=== PATIENT | male | born 1960 | race Caucasian/White ===

== ENCOUNTER → 2017-08-08 08:28 | Outpatient (CLI) | payer OTHER, SELFPAY ==
[2017-08-08 10:42] LABS: ALB/GLOB Ratio 1.1 RATIO (0.9-2.4); AST(SGOT) 18 U/L (15-37); Alanine Aminotransfer ALT/SGPT 32 U/L (16-61); Albumin, Serum 3.9 g/dL (3.2-5.0); Alkaline Phosphatase 104 U/L (45-117); Anion Gap 5 (5-15); BUN 10 mg/dL (7-18); BUN/Creat Ratio 9.9 RATIO (10-20); Calcium,Total 8.6 mg/dL (8.5-10.1); Chloride 105 mmol/L (98-107); Cholesterol 150 mg/dL (200); Creatinine, Serum 1.01 mg/dL (0.70-1.30); EST Glomerular Filtration Rate 81 mL/min (>60); Est Glom Filt Rate - Afr Amer 99 mL/min (>60); Free T3 3.1 pg/mL (2.18-3.98); Globulin 3.7 g/dL (2.2-4.2); Glucose 201 mg/dL (74-106); High Density Lipoprotein 42 mg/dL; Protein, Total 7.6 g/dL (6.4-8.2); Sodium Level 137 mmol/L (136-145); T4 Free Direct 1.17 ng/dL (0.76-1.46); Thyroid Stim Hormone (TSH) 1.24 uIU/mL (0.358-3.74); Triglycerides 128 mg/dL; Very Low Density Lipoprotein 26 mg/dL (5-40)
== END ==
PROVIDERS: Visit Provider Family Medicine
DX: E11.9 Type 2 diabetes mellitus without complications (principal); E04.1 Nontoxic single thyroid nodule
CPT/HCPCS: 36415; 80053; 80061; 84439; 84443; 84481

== ENCOUNTER → 2018-02-06 16:02 | Outpatient (CLI) | payer OTHER, SELFPAY ==
[2018-02-06 17:47] LABS: ALB/GLOB Ratio 1.1 RATIO (0.9-2.4); AST(SGOT) 17 U/L (15-37); Alanine Aminotransfer ALT/SGPT 32 U/L (16-61); Albumin, Serum 3.9 g/dL (3.2-5.0); Alkaline Phosphatase 86 U/L (45-117); Anion Gap 10 (5-15); BUN 13 mg/dL (7-18); BUN/Creat Ratio 14.2 RATIO (10-20); Calcium,Total 9.2 mg/dL (8.5-10.1); Chloride 101 mmol/L (98-107); Creatinine, Serum 0.92 mg/dL (0.70-1.30); EST Glomerular Filtration Rate 91 mL/min (>60); Est Glom Filt Rate - Afr Amer 110 mL/min (>60); Globulin 3.5 g/dL (2.2-4.2); Glucose 110 mg/dL (74-106); Potassium 3.4 mmol/L (3.5-5.1); Protein, Total 7.4 g/dL (6.4-8.2); Sodium Level 140 mmol/L (136-145)
== END ==
PROVIDERS: Family Provider Family Medicine; PCP Family Medicine; Visit Provider Family Medicine
DX: E11.9 Type 2 diabetes mellitus without complications (principal); I10 Essential (primary) hypertension
CPT/HCPCS: 36415; 80053

== ENCOUNTER → 2018-02-10 14:41 | Outpatient (CLI) | payer OTHER, SELFPAY ==
--- NOTE | 2018-02-10 14:45 | US_ITS ---
STUDY: THYROID ULTRASOUND REASON FOR EXAM: Male, 57 years old. Nodule TECHNIQUE: Ultrasound evaluation of the thyroid was performed with real-time and static reyez-scale imaging. COMPARISON: None. FINDINGS: RIGHT LOBE: The right lobe of the thyroid gland measures 4.4 x 2.0 x 1.5 cm. There is a homogeneous echotexture. There is an echogenic lower pole 10 x 9 x 8 mm nodule. LEFT LOBE: The left lobe of the thyroid gland measures 8.1 x 5.9 x 4.2 cm. There is a heterogeneous echotexture. There is a 5.6 x 4.4 x 4.0 cm heterogeneous mass with calcifications centrally and cystic components. ISTHMUS: The isthmus measures 6 mm . There is a right-sided 2.7 x 1.2 x 2.7 cm lymph node. US/Thyroid IMPRESSION: Right thyroid nodule. Left thyroid complex mass. Right-sided enlarged node. Electronically Signed: Sanjay Burgess DO at 23:04 EDT Tel [phone], Service support ,
== END ==
PROVIDERS: Family Provider Family Medicine; PCP Family Medicine; Referring Provider Family Medicine; Visit Provider Family Medicine
DX: E04.1 Nontoxic single thyroid nodule (principal)
CPT/HCPCS: 76536

== ENCOUNTER → 2018-03-04 13:10 | Outpatient (CLI) | payer OTHER, SELFPAY ==
--- NOTE | 2018-03-04 | ASPS_PTH ---
PATIENT: SERJIO RODRIGUEZ LOC: [facility] U#:[id number] AGE/SX: 64/M ROOM: RE03/04/[address]: Dr. Nii Vallecillo MD : 1960 BED: DIS: SPEC #: [id number] RECD: 03/04/18 12:36 STATUS: SOLIS REBowen #: [id number] DONALDO: 03/04/18 00:[address]: Nii Vallecillo DEPT: CYTOLOGY RECD BY: Kavon Schofield ENTERED: 03/06/18 13:28 SP TYPE: ASPIRATION OTHR DR: Dr. Deepak Bustos MD Tissues: Thyroid gland, NOS Procedures: Pap Stain (control) Special Stain Group II Cytology Other HEADER OPERATION: Fine needle aspiration of left thyroid PRE-OP DIAGNOSIS: Multinodular goiter (nontoxic) TISSUE SUBMITTED: Left thyroid 12 slides DIAGNOSIS CYTOLOGY Left thyroid nodule, FNA (smears): A few atypical follicular cells of undetermined significance noted. Adequate for evaluation. SJ:rg 03/07/18 COMMENT Correlation with clinical, radiologic findings and appropriate follow up are necessary. CYTOLOGY STUDY Slides are reviewed. CYTOLOGY GROSS Received are 12 smears labeled with the patient's name and designated per the requisition as left thyroid. Submitted for staining. / 03/06/18 TC:5 CPT: 98567 ADDENDUM ADDENDUM ADDENDUM ADDENDUM ADDENDUM ADDENDUM ADDENDUM ADDENDUM ADDENDUM ADDENDUM 05/31/2018 10:40 ADDENDUM 05/31/2018 10:40 ADDENDUM 05/31/2018 10:40 ADDENDUM 05/31/2018 10:40 ADDENDUM 05/31/2018 10:40 This addendum is added to incorporate an outside pathology consultation report. The case was examined at [facility] (#[id number]) and the following diagnosis was rendered. Left thyroid nodule fine needle aspiration: Atypia of undetermined significance. Please see complete above mentioned consultation report in EMR
== END ==
PROVIDERS: Family Provider Family Medicine; PCP Family Medicine; Visit Provider Surgery
DX: E04.2 Nontoxic multinodular goiter (principal)
CPT/HCPCS: 88161; 88313

== ENCOUNTER → 2018-09-11 09:57 | Outpatient (CLI) | payer OTHER, SELFPAY ==
[2018-04-17 09:32] VITALS: BMI 32.6
[2018-09-11 13:04] LABS: AST(SGOT) 16 U/L (15-37); Alanine Aminotransfer ALT/SGPT 22 U/L (16-61); Albumin, Serum 3.9 g/dL (3.2-5.0); Alkaline Phosphatase 107 U/L (45-117); Anion Gap 7 (5-15); BUN 24 mg/dL (7-18); BUN/Creat Ratio 18.6 RATIO (10-20); Calcium,Total 8.9 mg/dL (8.5-10.1); Chloride 108 mmol/L (98-107); Cholesterol 165 mg/dL (200); Creatinine, Serum 1.29 mg/dL (0.70-1.30); EST Glomerular Filtration Rate 61 mL/min (>60); Est Glom Filt Rate - Afr Amer 74 mL/min (>60); Free T3 1.6 pg/mL (2.18-3.98); Globulin 3.8 g/dL (2.2-4.2); Glucose 160 mg/dL (74-106); High Density Lipoprotein 46 mg/dL; Protein, Total 7.7 g/dL (6.4-8.2); Sodium Level 141 mmol/L (136-145); T4 Free Direct 0.95 ng/dL (0.76-1.46); Thyroid Stim Hormone (TSH) 9.96 uIU/mL (0.358-3.74); Triglycerides 114 mg/dL; Very Low Density Lipoprotein 23 mg/dL (5-40)
== END ==
PROVIDERS: PCP Family Medicine; Visit Provider Family Medicine
DX: E11.9 Type 2 diabetes mellitus without complications (principal); E04.1 Nontoxic single thyroid nodule; E03.9 Hypothyroidism, unspecified
CPT/HCPCS: 36415; 80053; 80061; 84439; 84443; 84481

== ENCOUNTER → 2019-03-15 08:59 | Outpatient (CLI) | payer OTHER, SELFPAY ==
[2018-04-17 09:32] VITALS: BMI 32.6
[2019-03-15 10:23] LABS: ALB/GLOB Ratio 0.9 RATIO (0.9-2.4); AST(SGOT) 19 U/L (15-37); Alanine Aminotransfer ALT/SGPT 32 U/L (16-61); Albumin, Serum 3.8 g/dL (3.2-5.0); Alkaline Phosphatase 103 U/L (45-117); Anion Gap 11 (5-15); BUN 18 mg/dL (7-18); BUN/Creat Ratio 14.5 RATIO (10-20); CRP, High Sensitivity Cardiac 5.42 mg/L; Calcium,Total 9.1 mg/dL (8.5-10.1); Chloride 102 mmol/L (98-107); Creatinine, Serum 1.24 mg/dL (0.70-1.30); EST Glomerular Filtration Rate 64 mL/min (>60); Est Glom Filt Rate - Afr Amer 77 mL/min (>60); Globulin 4.1 g/dL (2.2-4.2); Glucose 232 mg/dL (74-106); Protein, Total 7.9 g/dL (6.4-8.2); Sodium Level 139 mmol/L (136-145); Thyroid Stim Hormone (TSH) 1.53 uIU/mL (0.358-3.74)
== END ==
PROVIDERS: PCP Family Medicine; Visit Provider Family Medicine
DX: E11.9 Type 2 diabetes mellitus without complications (principal); E78.2 Mixed hyperlipidemia
CPT/HCPCS: 36415; 80053; 84403; 84443; 86141

== ENCOUNTER → 2020-01-07 14:50 | Outpatient (CLI) | payer OTHER, SELFPAY ==
[2018-04-17 09:32] VITALS: BMI 32.6
[2020-01-07 18:39] LABS: ALB/GLOB Ratio 1.1 RATIO (0.9-2.4); AST(SGOT) 20 U/L (15-37); Alanine Aminotransfer ALT/SGPT 27 U/L (16-61); Albumin, Serum 4.3 g/dL (3.2-5.0); Alkaline Phosphatase 107 U/L (45-117); Anion Gap 6 (5-15); BUN 16 mg/dL (7-18); BUN/Creat Ratio 13.1 RATIO (10-20); Calcium,Total 9.3 mg/dL (8.5-10.1); Chloride 104 mmol/L (98-107); Creatinine, Serum 1.22 mg/dL (0.70-1.30); EST Glomerular Filtration Rate 65 mL/min (>60); Est Glom Filt Rate - Afr Amer 79 mL/min (>60); Globulin 3.9 g/dL (2.2-4.2); Glucose 105 mg/dL (74-106); PSA,Total - Annual Screen 1.14 ng/mL (0.00-4.00); Potassium 3.5 mmol/L (3.5-5.1); Protein, Total 8.2 g/dL (6.4-8.2); Sodium Level 139 mmol/L (136-145); Thyroid Stim Hormone (TSH) 3.15 uIU/mL (0.358-3.74)
== END ==
PROVIDERS: PCP Family Medicine; Referring Provider Family Medicine; Visit Provider Family Medicine
DX: E11.9 Type 2 diabetes mellitus without complications (principal); Z12.5 Encounter for screening for malignant neoplasm of prostate
CPT/HCPCS: 36415; 80053; 84153; 84443; G0103

== ENCOUNTER → 2020-06-18 12:04 | Outpatient (CLI) | payer OTHER, SELFPAY ==
[2018-04-17 09:32] VITALS: BMI 32.6
[2020-06-18 16:01] LABS: ALB/GLOB Ratio 1.1 RATIO (0.9-2.4); AST(SGOT) 24 U/L (15-37); Alanine Aminotransfer ALT/SGPT 28 U/L (16-61); Albumin, Serum 4.3 g/dL (3.2-5.0); Alkaline Phosphatase 99 U/L (45-117); Anion Gap 7 (5-15); BUN 17 mg/dL (7-18); BUN/Creat Ratio 13.9 RATIO (10-20); Calcium,Total 9.7 mg/dL (8.5-10.1); Chloride 105 mmol/L (98-107); Cholesterol 131 mg/dL (200); Creatinine, Serum 1.22 mg/dL (0.70-1.30); EST Glomerular Filtration Rate 65 mL/min (>60); Est Glom Filt Rate - Afr Amer 78 mL/min (>60); Globulin 3.9 g/dL (2.2-4.2); Glucose 147 mg/dL (74-106); High Density Lipoprotein 51 mg/dL; Potassium 3.7 mmol/L (3.5-5.1); Protein, Total 8.2 g/dL (6.4-8.2); Sodium Level 139 mmol/L (136-145); Thyroid Stim Hormone (TSH) 2.86 uIU/mL (0.358-3.74); Triglycerides 109 mg/dL; Very Low Density Lipoprotein 22 mg/dL (5-40)
== END ==
PROVIDERS: PCP Family Medicine; Referring Provider Family Medicine; Visit Provider Family Medicine
DX: E03.9 Hypothyroidism, unspecified (principal); E11.9 Type 2 diabetes mellitus without complications
CPT/HCPCS: 36415; 80053; 80061; 84443

== ENCOUNTER → 2020-12-15 16:05 | Outpatient (CLI) | payer OTHER, SELFPAY ==
[2018-04-17 09:32] VITALS: BMI 32.6
[2020-12-15 18:14] LABS: ALB/GLOB Ratio 1.1 RATIO (0.9-2.4); AST(SGOT) 14 U/L (15-37); Alanine Aminotransfer ALT/SGPT 24 U/L (16-61); Alkaline Phosphatase 99 U/L (45-117); Anion Gap 7 (5-15); BUN 22 mg/dL (7-18); BUN/Creat Ratio 18.8 RATIO (10-20); Chloride 104 mmol/L (98-107); Creatinine, Serum 1.17 mg/dL (0.70-1.30); EST Glomerular Filtration Rate 68 mL/min (>60); Est Glom Filt Rate - Afr Amer 82 mL/min (>60); Globulin 3.8 g/dL (2.2-4.2); Glucose 76 mg/dL (74-106); Potassium 3.7 mmol/L (3.5-5.1); Protein, Total 7.8 g/dL (6.4-8.2); Sodium Level 138 mmol/L (136-145); Thyroid Stim Hormone (TSH) 0.13 uIU/mL (0.358-3.74)
== END ==
PROVIDERS: PCP Family Medicine; Referring Provider Family Medicine; Visit Provider Family Medicine
DX: E11.65 Type 2 diabetes mellitus with hyperglycemia (principal); E03.9 Hypothyroidism, unspecified; Z12.5 Encounter for screening for malignant neoplasm of prostate
CPT/HCPCS: 36415; 80053; 84439; 84443

== ENCOUNTER 2021-05-28 14:00 | Outpatient (CLI) | payer OTHER, SELFPAY ==
[2021-05-28 15:43] LABS: Hemoglobin A1c 9.2 % (3.8-5.6)
[2021-05-28 16:04] LABS: Anion Gap 8 (5-15); BUN 17 mg/dL (7-18); BUN/Creat Ratio 14.7 RATIO (10-20); Calcium,Total 9.9 mg/dL (8.5-10.1); Chloride 100 mmol/L (98-107); Cholesterol 117 mg/dL (200); Creatinine, Serum 1.16 mg/dL (0.70-1.30); EST Glomerular Filtration Rate 69 mL/min (>60); Est Glom Filt Rate - Afr Amer 83 mL/min (>60); Glucose 186 mg/dL (74-106); High Density Lipoprotein 36 mg/dL; Potassium 3.6 mmol/L (3.5-5.1); Sodium Level 138 mmol/L (136-145); Thyroid Stim Hormone (TSH) 1.05 uIU/mL (0.358-3.74); Triglycerides 216 mg/dL; Very Low Density Lipoprotein 43 mg/dL (5-40)
== END 2021-05-28 23:59 | disposition short-term general hospital (02) ==
LOC: MFPLAB 14:04
PROVIDERS: PCP Family Medicine; Referring Provider Family Medicine; Visit Provider Family Medicine
DX: E11.65 Type 2 diabetes mellitus with hyperglycemia (principal)
CPT/HCPCS: 36415; 80048; 80061; 83036; 84443

== ENCOUNTER → 2021-09-07 | Outpatient (CLI) | payer OTHER, SELFPAY ==
--- NOTE | 2021-09-07 07:45 | US_ITS ---
EXAM: US SOFT TISSUES OF THE NECK CLINICAL INDICATION: NECK NODULE -- RIGHT UPPER NECK TECHNIQUE: Real-time ultrasound scan of the soft tissues of the neck with image documentation. This report was created using [employer] report [employer] technology. COMPARISON: None. FINDINGS: SOFT TISSUES: Submandibular glands are symmetric in size and echogenicity. No abscess. No foreign body. No discrete thyroid tissue identified. LYMPH NODES: Several bilateral cervical lymph nodes are noted all of which demonstrate normal internal architecture and with short axis diameters measuring up to 1.3 cm in maximum diameter. US/Head/Neck Soft Tissue IMPRESSION: Bilateral mildly prominent cervical lymph nodes likely representing reactive change. Electronically Signed: Elieser Molina MD at 9:44 EDT ,
== END | disposition home or self-care (01) ==
LOC: US 07:44
PROVIDERS: PCP Family Medicine; Referring Provider Family Medicine; Visit Provider Family Medicine
DX: R22.1 Localized swelling, mass and lump, neck (principal)
CPT/HCPCS: 76536

== ENCOUNTER → 2021-12-03 | Outpatient (CLI) | payer OTHER, SELFPAY ==
[2021-12-03 10:29] LABS: AST(SGOT) 21 U/L (15-37); Alanine Aminotransfer ALT/SGPT 29 U/L (16-61); Albumin, Serum 3.9 g/dL (3.2-5.0); Alkaline Phosphatase 117 U/L (45-117); Anion Gap 7 (5-15); BUN 22 mg/dL (7-18); BUN/Creat Ratio 19.8 RATIO (10-20); Calcium,Total 9.5 mg/dL (8.5-10.1); Chloride 102 mmol/L (98-107); Cholesterol 112 mg/dL (200); Creatinine, Serum 1.11 mg/dL (0.70-1.30); EST Glomerular Filtration Rate 72 mL/min (>60); Est Glom Filt Rate - Afr Amer 87 mL/min (>60); Glucose 192 mg/dL (74-106); High Density Lipoprotein 41 mg/dL; Potassium 3.5 mmol/L (3.5-5.1); Protein, Total 7.9 g/dL (6.4-8.2); Sodium Level 136 mmol/L (136-145); Triglycerides 144 mg/dL; Very Low Density Lipoprotein 29 mg/dL (5-40)
== END | disposition home or self-care (01) ==
LOC: MFPLAB 08:38
PROVIDERS: PCP Family Medicine; Referring Provider Family Medicine; Visit Provider Family Medicine
DX: E11.9 Type 2 diabetes mellitus without complications (principal)
CPT/HCPCS: 36415; 80053; 80061

== ENCOUNTER → 2022-06-01 | Outpatient (CLI) | payer OTHER, SELFPAY ==
[2022-06-01 13:01] LABS: Vitamin B12 353 pg/mL (211-911)
[2022-06-01 13:02] LABS: ALB/GLOB Ratio 1.2 RATIO (0.9-2.4); AST(SGOT) 15 U/L (15-37); Alanine Aminotransfer ALT/SGPT 28 U/L (16-61); Albumin, Serum 4.3 g/dL (3.2-5.0); Alkaline Phosphatase 137 U/L (45-117); Anion Gap 10 (5-15); BUN 19 mg/dL (7-18); BUN/Creat Ratio 15.7 RATIO (10-20); Chloride 103 mmol/L (98-107); Cholesterol 134 mg/dL (200); Creatinine, Serum 1.21 mg/dL (0.70-1.30); EST Glomerular Filtration Rate 65 mL/min (>60); Est Glom Filt Rate - Afr Amer 79 mL/min (>60); Globulin 3.6 g/dL (2.2-4.2); Glucose 271 mg/dL (74-106); High Density Lipoprotein 45 mg/dL; PSA,Total - Annual Screen 1.25 ng/mL (0.00-4.00); Potassium 3.9 mmol/L (3.5-5.1); Protein, Total 7.9 g/dL (6.4-8.2); Sodium Level 138 mmol/L (136-145); Thyroid Stim Hormone (TSH) 4.26 uIU/mL (0.358-3.74); Triglycerides 123 mg/dL; Very Low Density Lipoprotein 25 mg/dL (5-40)
== END | disposition home or self-care (01) ==
LOC: MFPLAB 09:46
PROVIDERS: PCP Family Medicine; Visit Provider Family Medicine
DX: Z12.5 Encounter for screening for malignant neoplasm of prostate (principal); E11.9 Type 2 diabetes mellitus without complications
CPT/HCPCS: 36415; 80053; 80061; 82607; 84153; 84443; G0103

== ENCOUNTER → 2022-12-08 | Outpatient (CLI) | payer OTHER, SELFPAY ==
[2022-12-08 11:37] LABS: AST(SGOT) 18 U/L (15-37); Alanine Aminotransfer ALT/SGPT 27 U/L (16-61); Albumin, Serum 4.1 g/dL (3.2-5.0); Alkaline Phosphatase 123 U/L (45-117); Anion Gap 5 (5-15); BUN 19 mg/dL (7-18); BUN/Creat Ratio 16.1 RATIO (10-20); Calcium,Total 9.5 mg/dL (8.5-10.1); Chloride 103 mmol/L (98-107); Creatinine, Serum 1.18 mg/dL (0.70-1.30); EST Glomerular Filtration Rate 67 mL/min (>60); Est Glom Filt Rate - Afr Amer 81 mL/min (>60); Globulin 4.1 g/dL (2.2-4.2); Glucose 173 mg/dL (74-106); Potassium 3.9 mmol/L (3.5-5.1); Protein, Total 8.2 g/dL (6.4-8.2); Sodium Level 136 mmol/L (136-145); T4 Free Direct 1.69 ng/dL (0.76-1.46); Thyroid Stim Hormone (TSH) 0.54 uIU/mL (0.358-3.74)
== END | disposition home or self-care (01) ==
LOC: MFPLAB 08:32
PROVIDERS: PCP Family Medicine; Visit Provider Family Medicine
DX: E03.9 Hypothyroidism, unspecified (principal); E11.65 Type 2 diabetes mellitus with hyperglycemia
CPT/HCPCS: 36415; 80053; 84439; 84443

== ENCOUNTER 2023-01-23 14:16 | Emergency (ER) | payer OTHER, SELFPAY ==
[2023-01-23 14:18] VITALS: BP 97/76; PULSE 95; RESP 16; TEMP 36.6; O2SAT 100; BMI 31.9
--- NOTE | 2023-01-23 15:17 | ED.VIS.GI ---
HPI HPI - GI History of Present Illness Chief Complaint: Nausea/Vomiting/Diarrhea Detail of Chief Complaint: For approximately 1 week. Informant: patient and spouse/S.O. Abdominal Pain/Flank Pain Onset: Days Context: Gradual Onset Timing: Continuous Nausea/Vomiting/Emesis GI Symptom: Positive for Nausea and Vomiting Onset: Days Severity: Mild Diarrhea/Melena/Hematochezia GI Symptom: Positive for Diarrhea; Negative for Melena or Hematochezia Onset: Days Stool Quality: Positive for Watery Severity: Moderate Associated Symptoms Associated Symptoms: Negative for Dysuria, Frequency, Hematuria or Urgency Narrative Narrative: 62-year-old male history of hypertension and diabetes. Patient states he had nausea, vomiting diarrhea since Tuesday. Its been basically a week. States thrown up several times a day. No hematemesis. No melena. He is having 5-10 episodes of diarrhea a day. No recent antibiotic. No recent surgery nor hospitalization. No prior history. No one else at home is ill. He denies any fever. He is really not having any abdominal pain. Prior similar symptoms: No Recent Illness/Hospitalization: No [facility] Medical History (Updated 01/23/23 @ 17:[address] Cristian Hutchinson MD) Diabetes HTN (hypertension) Home Medications glimepiride 4 mg tablet 4 mg PO QAM 02/27/18 [History Last Taken Unknown] losartan 100 mg-hydrochlorothiazide 25 mg tablet 1 tab PO DAILY 02/27/18 [History Last Taken Unknown] metformin 1,000 mg tablet 1,000 mg PO DAILY 02/27/18 [History Last Taken Unknown] dulaglutide 4.5 mg/0.5 mL subcutaneous pen injector (Trulicity) 4.5 mg subcut .qsunday 01/23/23 [History Last Taken Unknown] levothyroxine 175 mcg tablet 175 mcg PO DAILY 01/23/23 [History Last Taken Unknown] ondansetron 4 mg disintegrating tablet 4 mg PO Q8H PRN nausea and vomiting 3 days #7 tabs 01/23/23 [Rx Last Taken Unknown] potassium chloride 20 mEq tablet,extended release(part/cryst) 20 meq PO BID 10 days #20 tabs 01/23/23 [Rx Last Taken Unknown] Allergy/AdvReac Type Severity Reaction Status Date / Time No Known Allergies Allergy Verified 01/23/23 14:19 Family History Mother Breast cancer Diabetes Hypertension Father Hypertension Surgical History (Updated 01/23/23 @ 15:39 by Julio Herrera) H/O thyroidectomy History of back surgery S/P colonoscopy S/P LASIK surgery S/P tonsillectomy Social History Smoking Status: Never smoker alcohol intake: current alcohol intake frequency: a few times a week ROS ROS ED ROS Narrative Nausea, vomiting and diarrhea. Review of Systems ROS Unobtainable: Denies due to encephalopathy Constitutional Constitutional ED: Denies chills or fever(s) ENT ENT ED: Denies ear pain Cardiovascular Cardiovascular: Denies chest pain Respiratory/Chest Respiratory/Chest: Denies cough or dyspnea Gastrointestinal Gastrointestinal: Reports diarrhea, nausea and vomiting; Denies abdominal pain, constipation or melena Genitourinary Genitourinary ED: Denies dysuria or hematuria Musculoskeletal Musculoskeletal: Denies arthralgias Integumentary Denies abscess Neurologic Neurologic: Denies headache(s) Psychiatric Psychiatric: Denies anxiety Endocrine Endocrinology: Denies polydipsia Hematologic/Lymphatic Hematologic/Lymphatic: Denies easy bleeding Allergic/Immunologic Allergic/Immunologic ED: Denies mouth swelling or tongue swelling EXAM Physical Exam Narrative Exam Narrative: 62-year-old male vital signs stable afebrile his blood pressure is low at 97/76 consistent with dehydration. HEENT exam unremarkable. No facial droop. Moist mucous membranes. Neck nontender no lymphadenopathy. Lungs clear to auscultation bilaterally. Heart regular rhythm rate about 95 no murmur. Abdomen soft, nontender, nondistended, normal bowel sounds without peritoneal signs. No localizing tenderness. Back nontender. Moving all 4 extremities. He is awake and alert. Normal motor strength. Answering questions and following commands. Const Vital Signs: 01/23/23 14:18 01/23/23 17:32 Temperature 98 F Temperature Source Temporal Pulse Rate 95 81 Respiratory Rate 16 16 Blood Pressure 97/76 109/71 Blood Pressure Mean 83 83 Pulse Ox 100 99 Oxygen Delivery Method Room Air Room Air Positive well nourished and well developed; Negative for obese, cachectic, contractures or unkempt General Appearance ED: well developed and NAD; Negative for unkempt, cachectic, contractures or pallor Nutritional Appearance: Negative for cachectic or obese HEENT Reports moist mucous membranes normocephalic and atraumatic; Negative for trauma or tenderness Eyes PERRL and EOMs intact bilaterally General Eye ED: Negative for pale conjunctiva, scleral icterus or other Neck no lymphadenopathy, supple and no JVD General: Negative for tenderness Carotids: Negative for other Lymph Lymphatic: Negative for other Resp normal respiratory effort and clear to auscultation bilaterally Effort and Inspection: Negative for respiratory distress or retractions Auscultation: Negative for rales, rhonchi or wheezes Cardio regular rate, regular rhythm, S1 normal heart sound, S2 normal heart sound and no murmurs Rate: Negative for bradycardia or tachycardic Rhythm: Negative for abnormal rhythm GI non-tender, non-distended and no masses Inspection: Negative for abdominal distention Auscultation: normoactive bowel sounds Palpation: soft; Negative for tender or guarding Back/Spine no CVA tenderness General Back: Negative for CVA tenderness Cervical Spine: Negative for cervical spine tenderness Thoracic Spine / Upper Back: Negative for thoracic spinal tenderness Lumbar Spine / Lower Back: Negative for lumbar spinal tenderness Coccyx: Negative for other Extremity full ROM General Extremety ED: Negative for edema or tenderness General Extremity: Negative for edema Neuro CN's II-XII intact bilaterally, moves all extremities and no sensory deficits noted Sensorium / Orientation: alert, oriented to person, oriented to place and oriented to time; Negative for orientation impaired, confused or lethargic Motor Exam: strength 5/5 throughout Psych mental status grossly normal and thought process normal Appearance: Negative for unkempt Attitude: No agitated Mood & Affect: Negative for depressed, anxious or tearful Skin no wounds General Skin Exam: Negative for jaundice or pallor Lesions: no lesions Rashes: no rashes Trauma: Negative for abrasion Nails: Negative for discolored MDM MDM MDM Narrative Medical decision making narrative: 62-year-old male with nausea vomiting diarrhea for a week. Really no significant abdominal pain. No dysuria. His exam is benign. He is hypotensive at 97/76 but is got moist mucous membranes. Screening labs to be obtained. Zofran for nausea. A liter normal saline and reevaluated. If he has an episode of diarrhea since has had for a week and has had up to 10 episodes a day we will send a sample for C. difficile but he has no risk factors never had it before he has been not been in the hospital nor any antibiotics nor recent surgery. Repeat exam patient is doing well at 5:40 PM. Is receiving IV fluids. P.o. K-Dur. C. difficile is running may take several hours. Patient will be discharged and I will follow up that test result notify them if it is positive. Patient be discharged home on potassium replacement. Follow-up with his primary care physician. Fluids. Rest. Imodium for the diarrhea. History & Record Review Discussion w/independent historian: Patient and Family Lab Data Attestation: I reviewed the patient's lab results. Lab results narrative: CBC unremarkable. White count 8.9. H&H 15 and 45. Platelets 291. Electrolytes show potassium of 2.8 gap of 4. BUN and creatinine are 13 and 1.38. Glucose 141. Labs: Laboratory Results - last 24 hr 01/23/23 15:40 WBC 8.9 RBC 4.77 Hgb 15.5 Hct 45.0 MCV 94.3 H MCH 32.5 H MCHC 34.4 RDW Std Deviation 43.8 RDW Coeff of Jorge 12.6 Plt Count 291 MPV 9.4 Immature Gran % (Auto) 0.300 Neut % (Auto) 66.8 Lymph % (Auto) 16.7 L [place] % (Auto) 13.4 H Eos % (Auto) 2.0 Baso % (Auto) 0.8 Absolute Neuts (auto) 5.9 Absolute Lymphs (auto) 1.48 Nucleated RBC % 0 Sodium 136 Potassium 2.8 L Chloride 109 H Carbon Dioxide 23.0 Anion Gap 4 L BUN 13 Creatinine 1.38 H Estim Creat Clear Calc 51.37 Est GFR (MDRD) Af Amer 67 Est GFR (MDRD) Non-Af 56 L BUN/Creatinine Ratio 9.4 L Glucose 141 H Calcium 8.9 Discharge Plan Triage Chief Complaint: Nausea/Vomiting/Diarrhea ED Provider: Cristian Hutchinson Dx/Rx/DC Orders Clinical Impression: Nausea vomiting and diarrhea, Viral syndrome, Acute hypokalemia Instructions: ED Hypokalemia, ED Viral Syndrome (Adult), ED Vomiting and Diarrhea ... Prescriptions: New potassium chloride 20 mEq tablet,ER particles/crystals 20 meq PO BID 10 Days Qty: 20 0RF ondansetron 4 mg tablet,disintegrating 4 mg PO Q8H PRN (Reason: nausea and vomiting) 3 Days Qty: 7 0RF No Action losartan-hydrochlorothiazide 100-25 mg tablet 1 tab PO DAILY glimepiride 4 mg tablet 4 mg PO QAM metformin 1,000 mg tablet 1,000 mg PO DAILY levothyroxine 175 mcg tablet 175 mcg PO DAILY Trulicity 4.5 mg/0.5 mL pen injector 4.5 mg SUBCUT .qsunday Primary Care Provider: Matthew Bustos Referrals: Matthew Bustos MD [Primary Care Provider] - 3-5 Days if not improving Activity Restrictions/Additional Instructions: Plenty of fluids and rest. Increase diet slowly as tolerated. Zofran as needed for nausea. Imodium for diarrhea if it continues. Follow-up with your primary care physician if not improving. K-Dur which is potassium to be taken daily. Should have your potassium level rechecked in 2 weeks. Disposition Disposition: Home, Self Care
[2023-01-23 15:52] LABS: Absolute Lymphocyte Count 1.48 X10^3/uL (0.83-4.51); Absolute Neutrophil Count 5.9 X10^3/uL (2.0-7.7); Basophil# 0.07 X10^3/uL; Basophil% 0.8 % (0-1); Eosinophil# 0.18 X10^3/uL; Hemoglobin 15.5 g/dL (13.0-16.5); Lymphocyte # 1.48 X10^3/ul (0.83-4.51); Lymphocyte % 16.7 % (19-41); Mean Corp Hgb Conc 34.4 g/dL (32-36); Mean Corpuscular Hgb 32.5 pg (27.0-32.0); Mean Corpuscular Volume 94.3 fL (80-94); Mean Platelet Vol. 9.4 fl (6.2-12.0); Monocyte# 1.19 X10^3/uL; Monocyte% 13.4 % (0-10); NRBC Flagged by Analyzer 0 % (0-5); Neutrophil # 5.92 X10^3/uL (2.7-7.7); Neutrophil % 66.8 % (47-70); Platelet Count 291 K/mm3 (150-450); RBC Distribution Width CV 12.6 % (11.6-14.6); RBC Distribution Width SD 43.8 fl (35.1-43.9); Red Blood Count 4.77 M/mm3 (4.6-6.2); White Blood Count 8.9 K/mm3 (4.4-11.0)
[2023-01-23 16:05] LABS: Anion Gap 4 (5-15); BUN 13 mg/dL (7-18); BUN/Creat Ratio 9.4 RATIO (10-20); Calcium,Total 8.9 mg/dL (8.5-10.1); Chloride 109 mmol/L (98-107); Creatinine, Serum 1.38 mg/dL (0.70-1.30); EST Glomerular Filtration Rate 56 mL/min (>60); Est Glom Filt Rate - Afr Amer 67 mL/min (>60); Estimated Creatinine Clearance 51.37 ml/min; Glucose 141 mg/dL (74-106); Potassium 2.8 mmol/L (3.5-5.1); Sodium Level 136 mmol/L (136-145)
--- NOTE | 2023-01-23 16:26 | ED.RN ---
PT DOES ADMIT THAT HE HAS BEEN TAKING KRATOM, WHICH MAY HAVE CAUSED CURRENT ISSUE
[2023-01-23] MEDS: 0.9% Normal Saline (1000mL) 1,000 ML 999 ML IV (17:29)
[2023-01-23] MEDS: Potassium Chloride Oral Tablet 20 MEQ 40 MEQ PO (17:29)
[2023-01-23 17:32] VITALS: BP 109/71; PULSE 81; RESP 16; O2SAT 99
== END 2023-01-23 19:07 | disposition home or self-care (01) ==
PROVIDERS: Emergency Provider Emergency Medicine; PCP Family Medicine; Visit Provider Emergency Medicine
DX: R11.2 Nausea with vomiting, unspecified (principal); E11.9 Type 2 diabetes mellitus without complications; R19.7 Diarrhea, unspecified; E87.6 Hypokalemia; I10 Essential (primary) hypertension; B34.9 Viral infection, unspecified
CPT/HCPCS: 80048; 85025; 99284; A4216

== ENCOUNTER 2023-01-31 10:25 | Emergency (ER) | payer OTHER, SELFPAY ==
[2023-01-31 10:25] VITALS: BP 138/84; PULSE 54; RESP 16; TEMP 35.7; O2SAT 97; BMI 30.9
--- NOTE | 2023-01-31 10:50 | CT_ITS ---
STUDY: CT ABDOMEN AND PELVIS WITHOUT CONTRAST REASON FOR EXAM: Male, 62 years old. Pain -- LLQ pain. Diarrhea with nausea and vomiting. RADIATION DOSAGE (If Supplied By Facility): CTDIvol = ( 14.10 ) mGy, DLP = ( 821.06 ) mGycm TECHNIQUE: Transaxial images were obtained from the dome of the diaphragm to the symphysis pubis without oral contrast, and without intravenous contrast. Sagittal and coronal images were reconstructed. Individualized dose optimization techniques were used for this CT. COMPARISON: None. FINDINGS: The visualized lung bases are unremarkable. The visualized portions of the heart are within normal limits. Normal liver. Normal gallbladder and extrahepatic biliary system. Normal spleen. Atrophy of the pancreas more pronounced in the head of the pancreas. Normal bilateral adrenal glands. 1 cm cyst in the posterior midportion of the right kidney. Normal left kidney. Normal visualized stomach. Normal small intestine. Moderate amount of fecal material is seen in the colon. The appendix is visualized and appears normal. There is scattered atherosclerotic calcification of the abdominal aorta, without a demonstrated aneurysm. Normal inferior vena cava. Normal retroperitoneum. Normal urinary bladder. Calcification of the vas deferens. This is seen in patients with diabetes. Normal abdominal wall. There are mild degenerative changes of the visualized lumbar spine. CT/Abdomen/Pelvis without Cont IMPRESSION: Atrophy of the pancreas. Moderate amount of fecal material is seen in the colon. Calcification of the vas deferens. Electronically Signed: Gallo Da Silva MD at 12:17 EDT ,
[2023-01-31 10:59] LABS: Absolute Lymphocyte Count 1.23 X10^3/uL (0.83-4.51); Absolute Neutrophil Count 12.2 X10^3/uL (2.0-7.7); Basophil# 0.08 X10^3/uL; Basophil% 0.5 % (0-1); Eosinophil# 0.15 X10^3/uL; Hematocrit 45.4 % (40-54); Hemoglobin 15.6 g/dL (13.0-16.5); Lymphocyte # 1.23 X10^3/ul (0.83-4.51); Lymphocyte % 8.4 % (19-41); Mean Corp Hgb Conc 34.4 g/dL (32-36); Mean Corpuscular Hgb 33.5 pg (27.0-32.0); Mean Corpuscular Volume 97.4 fL (80-94); Mean Platelet Vol. 9.2 fl (6.2-12.0); Monocyte# 0.95 X10^3/uL; Monocyte% 6.5 % (0-10); NRBC Flagged by Analyzer 0 % (0-5); Neutrophil # 12.15 X10^3/uL (2.7-7.7); Neutrophil % 83.3 % (47-70); Platelet Count 326 K/mm3 (150-450); RBC Distribution Width SD 46.4 fl (35.1-43.9); Red Blood Count 4.66 M/mm3 (4.6-6.2); White Blood Count 14.6 K/mm3 (4.4-11.0)
--- NOTE | 2023-01-31 11:03 | ED.VIS.GI ---
HPI HPI - GI History of Present Illness Chief Complaint: Abd Pain Informant: patient and spouse/S.O. Narrative Narrative: Presents to ED persistent diarrhea for the past 2 weeks. Yesterday increasing left-sided abdominal pain. No fevers or chills. No recent antibiotics. Reports had vomiting and diarrhea starting 2 weeks ago was seen 8 days ago in the ED. Reports laboratory studies along with testing for C. difficile returned negative. Intermittent vomiting last time was yesterday no hematemesis. Denies bloody stools. States having persistent diarrhea last time 5 AM this morning. No abdominal surgeries. Colonoscopy 8 years ago. No sick contacts. Spouse does not have symptoms. Hypertension diabetes history on thyroid medication secondary to thyroidectomy in the past. Prior similar symptoms: Yes PFSH PFSH Medical History Diabetes HTN (hypertension) Home Medications glimepiride 4 mg tablet 4 mg PO QAM 02/27/18 [History Last Taken Unknown] losartan 100 mg-hydrochlorothiazide 25 mg tablet 1 tab PO DAILY 02/27/18 [History Last Taken Unknown] metformin 1,000 mg tablet 1,000 mg PO DAILY 02/27/18 [History Last Taken Unknown] dulaglutide 4.5 mg/0.5 mL subcutaneous pen injector (Trulicity) 4.5 mg subcut .qsunday 01/23/23 [History Last Taken Unknown] levothyroxine 175 mcg tablet 175 mcg PO DAILY 01/23/23 [History Last Taken Unknown] ondansetron 4 mg disintegrating tablet 4 mg PO Q8H PRN nausea and vomiting 3 days #7 tabs 01/23/23 [Rx Last Taken Unknown] potassium chloride 20 mEq tablet,extended release(part/cryst) 20 meq PO BID 10 days #20 tabs 01/23/23 [Rx Last Taken Unknown] Allergy/AdvReac Type Severity Reaction Status Date / Time No Known Allergies Allergy Verified 01/31/23 10:25 Family History Mother Breast cancer Diabetes Hypertension Father Hypertension Surgical History H/O thyroidectomy History of back surgery S/P colonoscopy S/P LASIK surgery S/P tonsillectomy Social History Smoking Status: Never smoker alcohol intake: current alcohol intake frequency: a few times a week ROS ROS ED Constitutional Constitutional ED: Denies chills, fever(s) or sweats Eyes Eyes: Denies change in vision ENT ENT ED: Denies dysphagia or sore throat Cardiovascular Cardiovascular: Denies chest pain, leg edema, palpitations or racing heartbeat Respiratory/Chest Respiratory/Chest: Denies cough, dyspnea or dyspnea on exertion Gastrointestinal Gastrointestinal: Reports abdominal pain and diarrhea; Denies nausea or vomiting Genitourinary Genitourinary ED: Denies dysuria, hematuria or urinary frequency Musculoskeletal Musculoskeletal: Denies back pain, extremity pain or neck pain Integumentary Denies rash or wounds Neurologic Neurologic: Denies headache(s), paresthesias or weakness EXAM Physical Exam Const Vital Signs: 01/31/23 10:25 Temperature 96.2 F L Temperature Source Temporal Pulse Rate 54 L Respiratory Rate 16 Blood Pressure 138/84 H Blood Pressure Mean 102 Pulse Ox 97 Oxygen Delivery Method Room Air Positive well nourished and well developed General Appearance ED: well developed and NAD HEENT Reports moist mucous membranes normocephalic and atraumatic Eyes PERRL, EOMs intact bilaterally and conjunctivae normal General Eye ED: Yes normal appearance of both eyes Neck no lymphadenopathy and supple General: Negative for tenderness Chest Wall Chest: Negative for tenderness Resp normal respiratory effort and normal air movement Effort and Inspection: symmetric chest movement; Negative for respiratory distress Cardio regular rate, regular rhythm and no murmurs Peripheral Pulses: pulses 2+ throughout GI normal to inspection, nondistended, normoactive bowel sounds GI Narrative: Right tenderness left lower quadrant there is no guarding or rebound. Palpation: Negative for guarding or rebound tenderness present Back/Spine no CVA tenderness and no thoracic nor lumbar tenderness Extremity normal to inspection General Extremety ED: Negative for edema or tenderness General Extremity: Negative for edema Neuro oriented x3 and no sensory deficits noted Sensorium / Orientation: awake and alert Skin no rashes or lesions noted and no wounds MDM MDM MDM Narrative Medical decision making narrative: Interventions / MDM: Differential diagnosis: Abdominal pain, diarrhea Diagnosis considered but do not suspect: C. difficile, bacterial infection, however stool studies are negative. Colitis however CT negative. My EKG interpretation: N/A Imaging independently reviewed and interpreted by myself: CT abdomen pelvis:No acute process also read by radiology. External documents reviewed: ED visit from 8 days ago C. difficile toxin antigen negative. Laboratory work White count normal potassium 2.8. Test considered but not ordered:N/A ED course: Patient nonsurgical abdomen persistent diarrhea however worsening left lower quadrant pain. Laboratory studies recheck fluids given, CT scan ordered. He declines any pain medications. After evaluation records noted C. difficile was obtained and no stool cultures. Will reorder stool for recheck cultures and C. difficile. Has no risk factors with any recent antibiotics. 1525: Patient was monitored elected to wait for stool results as lab states it was pending. Results repeat C. difficile negative stool pathogens also negative. Has been tolerating oral intake. Encourage continue oral fluids for hydration. He has Zofran at home. He will follow-up with his PCP. All questions were answered. Re-evaluation: stable Disposition discussed with patient/family/significant other: Patient and significant other Case discussed with consulting clinician: N/A This note was generated with [employer] dictation software. It may contain incorrect words, spelling, and punctuation that were not noted in checking the note before signing. Lab Data Attestation: I reviewed the patient's lab results. Labs: Laboratory Results - last 24 hr 01/31/23 10:40 WBC 14.6 H RBC 4.66 Hgb 15.6 Hct 45.4 MCV 97.4 H MCH 33.5 H MCHC 34.4 RDW Std Deviation 46.4 H RDW Coeff of Jorge 13.0 Plt Count 326 MPV 9.2 Immature Gran % (Auto) 0.300 Neut % (Auto) 83.3 H Lymph % (Auto) 8.4 L [place] % (Auto) 6.5 Eos % (Auto) 1.0 Baso % (Auto) 0.5 Absolute Neuts (auto) 12.2 H Absolute Lymphs (auto) 1.23 Nucleated RBC % 0 Sodium 139 Potassium 3.2 L Chloride 106 Carbon Dioxide 25.0 Anion Gap 8 BUN 11 Creatinine 1.18 Estim Creat Clear Calc 60.08 Est GFR (MDRD) Af Amer 81 Est GFR (MDRD) Non-Af 67 BUN/Creatinine Ratio 9.3 L Glucose 151 H Calcium 8.9 Total Bilirubin 0.90 AST 10 L ALT 16 Alkaline Phosphatase 117 Total Protein 7.8 Albumin 3.4 Globulin 4.4 H Albumin/Globulin Ratio 0.8 L Lipase 30 Radiography Diagnostic Testing: Clinical Impression(s) from Imaging Studies Abdomen/Pelvis CT 01/31/23 10:50 IMPRESSION: Atrophy of the pancreas. Moderate amount of fecal material is seen in the colon. Calcification of the vas deferens. Electronically Signed: Gallo Da Silva MD at 12:17 EDT , Discharge Plan Triage Chief Complaint: Abd Pain ED Provider: Tong Bagley Dx/Rx/DC Orders Clinical Impression: Diarrhea, Abdominal pain, Hypokalemia Instructions: Abdominal Pain, ED Diarrhea, Unknown Cause Prescriptions: No Action losartan-hydrochlorothiazide 100-25 mg tablet 1 tab PO DAILY glimepiride 4 mg tablet 4 mg PO QAM metformin 1,000 mg tablet 1,000 mg PO DAILY levothyroxine 175 mcg tablet 175 mcg PO DAILY Trulicity 4.5 mg/0.5 mL pen injector 4.5 mg SUBCUT .qsunday potassium chloride 20 mEq tablet,ER particles/crystals 20 meq PO BID 10 Days Qty: 20 0RF ondansetron 4 mg tablet,disintegrating 4 mg PO Q8H PRN (Reason: nausea and vomiting) 3 Days Qty: 7 0RF Primary Care Provider: Matthew Butsos Referrals: Matthew Bustos MD [Primary Care Provider] - 3-5 Days if not improving Activity Restrictions/Additional Instructions: Potassium 3.2 today. Normal kidney function today. CT scan abdomen pelvis was negative. Stool studies again C. difficile is negative. Stool pathogens also returned negative. Continue oral fluids for hydration. Use your nausea medicine as needed. Follow-up with your doctor. Return if any worsening symptoms. Disposition Disposition: Home, Self Care
[2023-01-31 11:14] LABS: ALB/GLOB Ratio 0.8 RATIO (0.9-2.4); AST(SGOT) 10 U/L (15-37); Alanine Aminotransfer ALT/SGPT 16 U/L (16-61); Albumin, Serum 3.4 g/dL (3.2-5.0); Alkaline Phosphatase 117 U/L (45-117); Anion Gap 8 (5-15); BUN 11 mg/dL (7-18); BUN/Creat Ratio 9.3 RATIO (10-20); Calcium,Total 8.9 mg/dL (8.5-10.1); Chloride 106 mmol/L (98-107); Creatinine, Serum 1.18 mg/dL (0.70-1.30); EST Glomerular Filtration Rate 67 mL/min (>60); Est Glom Filt Rate - Afr Amer 81 mL/min (>60); Estimated Creatinine Clearance 60.08 ml/min; Globulin 4.4 g/dL (2.2-4.2); Glucose 151 mg/dL (74-106); Lipase 30 U/L (13-75); Potassium 3.2 mmol/L (3.5-5.1); Protein, Total 7.8 g/dL (6.4-8.2); Sodium Level 139 mmol/L (136-145)
[2023-01-31] MEDS: 0.9% Normal Saline (1000mL) 1,000 ML 1000 ML IV (11:20)
[2023-01-31] MEDS: Potassium Chloride Oral Tablet 20 MEQ 40 MEQ PO (12:33)
== END 2023-01-31 15:33 | disposition home or self-care (01) ==
PROVIDERS: Emergency Provider Emergency Medicine; PCP Family Medicine; Visit Provider Emergency Medicine
DX: R10.32 Left lower quadrant pain (principal); E11.9 Type 2 diabetes mellitus without complications; E87.6 Hypokalemia; I10 Essential (primary) hypertension; Z79.85 Long-term (current) use of injectable non-insulin antidiabetic drugs; R19.7 Diarrhea, unspecified
CPT/HCPCS: 74176; 80053; 83690; 85025; 87493; 87506; 96360; 99282; J7030; A4216

== ENCOUNTER → 2023-02-10 | Outpatient (CLI) | payer OTHER, SELFPAY ==
[2023-02-10 17:46] LABS: Absolute Lymphocyte Count 1.56 X10^3/uL (0.83-4.51); Absolute Neutrophil Count 9.3 X10^3/uL (2.0-7.7); Basophil# 0.07 X10^3/uL; Basophil% 0.6 % (0-1); Eosinophils% 0.9 % (0-5); Hematocrit 45.1 % (40-54); Hemoglobin 14.8 g/dL (13.0-16.5); Lymphocyte # 1.56 X10^3/ul (0.83-4.51); Lymphocyte % 13.4 % (19-41); Mean Corp Hgb Conc 32.8 g/dL (32-36); Mean Corpuscular Hgb 32.7 pg (27.0-32.0); Mean Corpuscular Volume 99.8 fL (80-94); Mean Platelet Vol. 9.7 fl (6.2-12.0); Monocyte# 0.58 X10^3/uL; NRBC Flagged by Analyzer 0 % (0-5); Neutrophil # 9.29 X10^3/uL (2.7-7.7); Neutrophil % 79.5 % (47-70); Platelet Count 397 K/mm3 (150-450); RBC Distribution Width CV 13.1 % (11.6-14.6); RBC Distribution Width SD 47.8 fl (35.1-43.9); Red Blood Count 4.52 M/mm3 (4.6-6.2); White Blood Count 11.7 K/mm3 (4.4-11.0)
[2023-02-10 18:16] LABS: ALB/GLOB Ratio 0.9 RATIO (0.9-2.4); AST(SGOT) 24 U/L (15-37); Alanine Aminotransfer ALT/SGPT 31 U/L (16-61); Albumin, Serum 3.6 g/dL (3.2-5.0); Alkaline Phosphatase 135 U/L (45-117); Anion Gap 7 (5-15); BUN 16 mg/dL (7-18); BUN/Creat Ratio 13.2 RATIO (10-20); Calcium,Total 9.3 mg/dL (8.5-10.1); Chloride 101 mmol/L (98-107); Creatinine, Serum 1.21 mg/dL (0.70-1.30); EST Glomerular Filtration Rate 65 mL/min (>60); Est Glom Filt Rate - Afr Amer 78 mL/min (>60); Globulin 4.1 g/dL (2.2-4.2); Glucose 307 mg/dL (74-106); Protein, Total 7.7 g/dL (6.4-8.2); Sodium Level 136 mmol/L (136-145); Thyroid Stim Hormone (TSH) 3.55 uIU/mL (0.358-3.74)
[2023-02-11 10:02] LABS: Erythrocyte Sedimentation Rate 15 mm/hr (0-20)
[2023-02-11 10:08] LABS: CRP 3.23 mg/L (0.0-3.0)
== END | disposition home or self-care (01) ==
LOC: MFPLAB 15:22
PROVIDERS: PCP Family Medicine; Visit Provider Family Medicine
DX: E87.6 Hypokalemia (principal); R19.7 Diarrhea, unspecified; E03.9 Hypothyroidism, unspecified
CPT/HCPCS: 36415; 80053; 84443; 85025; 85652; 86140

== ENCOUNTER 2023-05-23 10:19 | Day surgery (SDC) | payer OTHER, SELFPAY ==
--- NOTE | 2023-05-23 | GASB_PTH ---
PATHOLOGY RESULTS PATIENT: SERJIO RODRIGUEZ LOC: EN U#:[id number] AGE/SX: 63/M ROOM: RE05/23/[address]: Dr. Zuri Greenberg MD : 1960 BED: DIS: 05/23/2023 SPEC #: [id number] RECD: 05/23/23 13:48 STATUS: SOLIS REBowen #: [id number] DONALDO: 05/23/23 00:[address]: Zuri Greenberg DEPT: SURGICAL PATHOLOGY RECD BY: Kavon Schofield ENTERED: 05/23/23 13:48 SP TYPE: Gastric Bx OTHR DR: Dr. Deepak Bustos MD Tissues: Gastric mucous membrane Descending colon COLON BIOPSY Procedures: Surgery Specimen Level IV HEADER OPERATION: Colonoscopy with biopsies, EGD with biopsy PRE-OP DIAGNOSIS: Weight loss, diarrhea TISSUE SUBMITTED: A - Antral biopsy for H. pylori and histology, B - Descending colon polyp biopsy, C - Random colon biopsy MICROSCOPIC DIAGNOSIS A. Antrum, biopsy: Mild gastritis. See microscopic description and comment. B. Descending colon polyp, biopsy: Tubular adenoma. C. Colon, random biopsy: A fragment of colonic mucosa, no pathologic diagnosis. SJ:darlin 05/24/2023 COMMENT A. The results of immunohistochemistry for Helicobacter pylori will be reported separately ([id number]). MICROSCOPIC DESCRIPTION Slides are reviewed. A. The specimen shows fragments of gastric mucosa with chronic inflammatory cell infiltrates in the lamina propria consisting of lymphocytes and plasma cells, consistent with mild chronic gastritis. GROSS DESCRIPTION A - Received in fixative is one container labeled with the patient's name and designated antral biopsy. The specimen consists of one irregular fragment of light longoria soft tissue that measures 0.4 x 0.3 x 0.1 cm. The specimen is totally submitted in one cassette. B - Received in fixative is one container labeled with the patient's name and designated descending colon polyp biopsy. The specimen consists of one irregular fragment of light longoria soft tissue that measures 0.5 x 0.3 x 0.1 cm. The specimen is totally submitted in one cassette. C - Received in fixative is one container labeled with the patient's name and designated random colon biopsy. The specimen consists of one irregular fragment of light longoria soft tissue that measures 0.4 x 0.4 x 0.1 cm. The specimen is totally submitted in one cassette. / SJ:rg 05/23/2023 TC: CPT: 17095 x3
--- NOTE | 2023-05-23 10:27 | HP.PCM_ITS ---
History and Physical Date of Admission: 05/23/23 Date of Service: 05/05/23 MR#: [id number] Acct: [id number] Name: SERJIO RODRIGUEZN Rep #: [id number] : 1960 Provider: Dr. 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 Is patient in pain?: No Allergies No Known Allergies Allergy (Verified 05/05/23 09:47) Medications glimepiride 4 mg tablet 4 mg PO QAM 02/27/18 [History Confirmed 05/05/23] losartan 100 mg-hydrochlorothiazide 25 mg tablet 1 tab PO DAILY 02/27/18 [History Confirmed 05/05/23] metformin 1,000 mg tablet 1,000 mg PO DAILY 02/27/18 [History Confirmed 05/05/23] dulaglutide 4.5 mg/0.5 mL subcutaneous pen injector (Trulicity) 4.5 mg subcut .qsunday 01/23/23 [History Confirmed 05/05/23] levothyroxine 175 mcg tablet 175 mcg PO DAILY 01/23/23 [History Confirmed 05/05/23] amlodipine 10 mg tablet mg PO 05/05/23 [History Confirmed 05/05/23] atorvastatin 40 mg tablet mg PO 05/05/23 [History Confirmed 05/05/23] ertugliflozin 15 mg tablet (Steglatro) mg PO 05/05/23 [History Confirmed 05/05/23] PFSH Medical History (Updated 05/05/23 @ 10:18 by Erika Cuellar) Diabetes Diarrhea HTN (hypertension) Weight loss Surgical History H/O thyroidectomy History of back surgery S/P colonoscopy S/P LASIK surgery S/P tonsillectomy Family History (Updated 05/05/23 @ 09:46 by Erika Cuellar) Mother Breast cancer Diabetes HypertensionFather Hypertension Colon cancer Social History Smoking Status: Never smoker alcohol intake: current alcohol intake frequency: a few times a week HPI HPI HPI: 63-year-old male presents for weight loss and episodes of diarrhea. Patient states that he went to the ER twice due to severe diarrhea. Patient states that he has not had the diarrhea for about 3 weeks. Patient now states has bowel movements about every 3 to 4 days. Patient did have stool studies at that time in January when he had the diarrhea which were negative along with C. diffici heath which was negative. Patient states he has a decreased appetite denies any nausea or vomiting and denies any current abdominal pain now and states he did have abdominal pain when he had the diarrhea. Patient states he is also lost about 20-25 pounds in the last 6 to 8 months- unintentional. Patient's dad history of prostate cancer with radiation. Patient had CT abdomen pelvis at time of ER visit in January which did not show anything really acutely other than constipation. Patient's last colonoscopy was in [address] Chapa colon was normal had a biopsy of the terminal ileum which was also normal. ROS General General: Yes weight change; No appetite, fatigue, colon cancer or breast cancer HEENT HEENT: Yes eye injury and eye surgery; No difficulty swallowing, swollen glands or hoarseness Endo Endocrine: Yes thyroid disease and thyroid cancer; No diabetes mellitus, Hair loss, heat intolerance or cold intolerance Skin Skin: No rash or changing moles Musc Musculoskeletal: Yes back problems; No arthritis, rheumatoid arthritis, gout or joint pain Cardio Cardiovascular: Yes high blood pressure; No murmur, pacemaker, heart disease, atrial fibrillation, heart attack, heart stent, palpitations, shortness of breat with exertion or chest pain Psych Psychiatric: No depression, anxiety or hearing voices Resp Respiratory: No shortness of breath, No sleep apnea, No cough, No COPD, No asthma, No emphysema and No wheezing Gastro Gastrointestinal: Yes abdominal pain, No nausea or vomiting, Yes diarrhea, No constipation, No blood in stool, No acid reflux, No hemorrhoids, No ulcers, No gallbladder problem and No black,tarry stools [place] Hematologic: No blood thinners, No blood disorders, No bleeding, No anemia and No blood clots Neuro Neurologic: No numbness and No tingling Exam Const General: cooperative, healthy appearing, comfortable and no acute distress [facility] Head: normocephalic and atraumatic Neck Neck: supple Resp Effort & Inspection: normal respiratory effort Cardio Rate: regular rate GI Inspection: non-distended Palpation: soft, no hernias and nontender Skin General: no rashes or lesions noted Neuro General: CN's II-XI intact bilaterally Extrem General: normal to inspection Psych Mental Status: mental status grossly normal Attitude: cooperative Assessment and Plan Assessment and Plan (1) Weight loss: Status: Acute (2) Diarrhea: Status: Acute Orders: Orders Colonoscopy 05/05/23 R19.7 - Diarrhea, unspecified, R63.4 - Abnormal weight loss EGD 05/05/23 Plan Will plan for an EGD and colonoscopy due to the weight loss as well as chronic episodes of diarrhea. Plan for random biopsies at the time of colonoscopy. Patient is agreeable plan. I have discussed the above with the patient. I have offered the patient esophagogastroduodenoscopy and colonoscopy for evaluation. I have explained the risks/benefits of the procedure and described the procedure. I have discussed the risks with the patient, including but not limited to: infection, bleeding, perforation of the GI tract requiring emergency surgery, inability to complete the procedure, injury to any internal organs, complications of anesthesia, etc. - the patient understands and agrees to proceed. I have answered all the patient's questions to the patient's satisfaction and the patient has no further questions. The patient has been given instructions for the colon cleansing preparation. 2 day of clears, Dulcolax first day and then the MiraLAX Dulcolax split prep. Zuri Greenberg M.D. Pager: [phone] [facility] [address] [place] [address], [address] [place] [address] Office: [phone] Coding Level of Care Code Off vis,new,level 3 Diagnoses Weight loss R63.4 Diarrhea R19.7 05/06/23 1213 <Electronically signed by Zuri Greenberg MD> Date Zuri Greenberg MD
--- OUTSIDE RECORDS SUMMARY | 2023-05-23 10:43 | XMS RPT_ITS | CCD ---
Author Name Unknown Address [address] [place] [address] Organization [facility] Results Test Name Value Interpretation Reference Range Facil ity Summary Purpose Family History No Family History Records Found Advance Directives No Advanced Directives Records Found Additional Source Comments (unrecognized sect ion and content) No Status Records Found INFORMATION SOURCE (unrecogn ized section and content) FOR RECORDS PERTAINING TO PATIENTS WHO ARE OR HAVE BEEN ENROLLED IN A CHEMICAL DEPENDENCY/SUBSTANCEABUSE PROGRAM, SOME INFORMATION MAY BE OMITTED. This clinical summary was aggregated from multiple sources. Caution should be exercised in using it in the provision of clinical care. This summary normalizes information from multiple sources, and as a consequence, information in this document may materially change the coding, format and clinical context of patient data. In addition, data may be omitted in some cases. CLINICAL DECISIONS SHOULD BE BASED ON THE PRIMARY CLINICAL RECORDS. [employer] provides no warranty or guarantee of the accuracy or completeness of information in this document.
[2023-05-23] MEDS: Lactated Ringers 1,000 ML 15 ML IV (11:21)
[2023-05-23 11:22] VITALS: BP 124/86; PULSE 71; RESP 16; TEMP 36.6; O2SAT 98; BMI 31.8
[2023-05-23 12:00] LABS: Bedside Glucose 149 mg/dL (74-106)
--- NOTE | 2023-05-23 12:30 | IMM_PTH ---
PATHOLOGY RESULTS PATIENT: SERJIO RODRIGUEZ LOC: EN U#:[id number] AGE/SX: 63/M ROOM: RE05/23/[address]: Dr. Zuri Greenberg MD : 1960 BED: DIS: 05/23/2023 SPEC #: [id number] RECD: 05/23/23 14:14 STATUS: SOLIS REQ #: [id number] DONALDO: 05/23/23 12:[address]: Zuri Greenberg DEPT: IMMUNOHISTOCHEMISTRY RECD BY: Josey Reeder ENTERED: 05/23/23 14:14 SP TYPE: IMMUNO OTHR DR: Dr. Deepak Bustos MD Tissues: Stomach, NOS Procedures: H Pylori (initial) PHYSICIAN & INSTITUTION [place] [id number] SPECIMEN INFORMATION: Tissue Source: A - Antral biopsy Clinical Info: Weight loss, diarrhea Specimen Number: [id number] CPT code: 26735 METHODOLOGY: Deparaffinized sections of prefer/formalin-fixed tissue or PAP/DQ stained slides are incubated with monoclonal/polyclonal antibodies/oligonucleotide probes. Localization is made via biotin free immunoperoxidase method. Appropriate controls are performed and reacted as expected. Results on target cell population are indicated in the following table: RESULTS: ANTIBODY / CLONE RESULT Block A H Pylori (polyclonal) negative These tests were developed and their performance characteristics determined by [facility]. They may not have been cleared or approved by the U.S. Food and Drug Administration. The FDA has determined that such clearance or approval is not necessary. The above immunohistochemical/dualISH markers are ordered and reviewed by the Pathologist. INTERPRETATION: A. Antral biopsy: Negative for Helicobacter pylori organisms. TULIO:darlin 05/24/2023
[2023-05-23 13:15] VITALS: BP 100/77; BP 124/76; PULSE 82; RESP 16; TEMP 36.8; O2SAT 95
--- NOTE | 2023-05-23 13:19 | OP.EGD_ITS ---
Patient Name: Bronwyn Mccarthy Procedure Date: 05/23/2023 12:26 PM Date of : 1960 Age: 63 Procedure: Upper GI endoscopy Indications: Weight loss Providers: Zuri Greenberg MD Medicines: Monitored Anesthesia Care Patient Profile: This is a 63 year old male. Complications: No immediate complications. Procedure: Pre-Anesthesia Assessment: - Prior to the procedure, a History and Physical was performed, and patient medications and allergies were reviewed. The patient's tolerance of previous anesthesia was also reviewed. The risks and benefits of the procedure and the sedation options and risks were discussed with the patient. All questions were answered, and informed consent was obtained. Prior Anticoagulants: The patient has taken no anticoagulant or antiplatelet agents. ASA Grade Assessment: Per anesthesia. After reviewing the risks and benefits, the patient was deemed in satisfactory condition to undergo the procedure. After obtaining informed consent, the endoscope was passed under direct vision. Throughout the procedure, the patient's blood pressure, pulse, and oxygen saturations were monitored continuously. The colonoscope was introduced through the mouth, and advanced to the second part of duodenum. The upper GI endoscopy was accomplished without difficulty. The patient tolerated the procedure well. Scope In: 12:37:33 PM Scope Out: 12:41:10 PM Total Procedure Duration Time 0 hours 3 minutes 37 seconds Findings: The Z-line was variable and was found 40 cm from the incisors. Localized mildly erythematous mucosa without bleeding was found in the gastric antrum. Biopsies were taken with a cold forceps for histology. Biopsies were taken with a cold forceps for Helicobacter pylori cultures. The examined duodenum was normal. The cardia and gastric fundus were normal on retroflexion. Impression: - Z-line variable, 40 cm from the incisors. - Erythematous mucosa in the antrum. Biopsied. - Normal examined duodenum. Recommendation: - Await pathology results. - Discharge patient to home. - Resume previous diet. - Continue present medications. Procedure Code(s): --- Professional --- 14182, Esophagogastroduodenoscopy, flexible, transoral; with biopsy, single or multiple Diagnosis Code(s): --- Professional --- K22.89, Other specified disease of esophagus K31.89, Other diseases of stomach and duodenum R63.4, Abnormal weight loss CPT copyright 2021 [employer]. All rights reserved. The codes documented in this report are preliminary and upon pharmacologist review may be revised to meet current compliance requirements. MD Zuri Gonzalez MD 05/23/2023 1:19:02 PM This report has been signed electronically. Number of Addenda: 0 Note Initiated On: 05/23/2023 12:26 PM
--- NOTE | 2023-05-23 13:19 | OP.CCLET_ITS ---
05/23/2023 Matthew Bustos [address] [place] [address] Re : Upper GI endoscopy procedure for Bronwyn Mccarthy Dear Dr. Bustos This procedure was performed on Tuesday, May 23, 2023. My impressions and recommendations are as follows: Impressions : - Z-line variable, 40 cm from the incisors. - Erythematous mucosa in the antrum. Biopsied. - Normal examined duodenum. Recommendations : - Await pathology results. - Discharge patient to home. - Resume previous diet. - Continue present medications. My findings are described in the full procedure note, which is enclosed. If I can be of further assistance, please feel free to contact me at Doctor phone number(s): , Work: . Sincerely, MD Zuri Gonzalez MD 05/23/2023 1:19:02 PM This report has been signed electronically.
[2023-05-23 13:20] VITALS: BP 100/73; BP 124/76; PULSE 80; RESP 16; O2SAT 95
--- NOTE | 2023-05-23 13:23 | OP.CCLET_ITS ---
05/23/2023 Matthew Bustos [address] [place] [address] Re : Colonoscopy procedure for Bronwyn Mccarthy Dear Dr. Bustos This procedure was performed on Tuesday, May 23, 2023. My impressions and recommendations are as follows: Impressions : - One less than 5 mm polyp in the descending colon, removed with a cold biopsy forceps. Resected and retrieved. - The examination was otherwise normal. - Biopsy was performed random. Recommendations : - Discharge patient to home. - Resume previous diet. - Continue present medications. - Await pathology results. - Repeat colonoscopy in 5 years for surveillance based on pathology results. My findings are described in the full procedure note, which is enclosed. If I can be of further assistance, please feel free to contact me at Doctor phone number(s): , Work: . Sincerely, MD Zuri Gonzalez MD 05/23/2023 1:23:00 PM This report has been signed electronically.
--- NOTE | 2023-05-23 13:23 | OP.COLON_ITS ---
Patient Name: Bronwyn Mccarthy Procedure Date: 05/23/2023 12:41 PM Date of : 1960 Age: 63 Procedure: Colonoscopy Indications: Clinically significant diarrhea of unexplained origin Providers: Zuri Greenberg MD Medicines: Monitored Anesthesia Care Patient Profile: This is a 63 year old male. Last Colonoscopy: 2012. Complications: No immediate complications. Procedure: Pre-Anesthesia Assessment: - Prior to the procedure, a History and Physical was performed, and patient medications and allergies were reviewed. The patient's tolerance of previous anesthesia was also reviewed. The risks and benefits of the procedure and the sedation options and risks were discussed with the patient. All questions were answered, and informed consent was obtained. Prior Anticoagulants: The patient has taken no anticoagulant or antiplatelet agents. ASA Grade Assessment: Per anesthesia. After reviewing the risks and benefits, the patient was deemed in satisfactory condition to undergo the procedure. After I obtained informed consent, the scope was passed under direct vision. Throughout the procedure, the patient's blood pressure, pulse, and oxygen saturations were monitored continuously. The colonoscope was introduced through the anus and advanced to the cecum, identified by appendiceal orifice and ileocecal valve. The colonoscopy was performed without difficulty. The patient tolerated the procedure well. The quality of the bowel preparation was adequate. Scope In: 12:43:00 PM Scope Withdrawal Time 0 hours 16 minutes 52 seconds Scope Out: 1:10:15 PM Total Procedure Duration Time 0 hours 27 minutes 15 seconds Findings: The perianal and digital rectal examinations were normal. A less than 5 mm polyp was found in the descending colon. The polyp was sessile. The polyp was removed with a cold biopsy forceps. Resection and retrieval were complete. Biopsy with a cold forceps random was performed for histology. The exam was otherwise without abnormality. Impression: - One less than 5 mm polyp in the descending colon, removed with a cold biopsy forceps. Resected and retrieved. - The examination was otherwise normal. - Biopsy was performed random. Recommendation: - Discharge patient to home. - Resume previous diet. - Continue present medications. - Await pathology results. - Repeat colonoscopy in 5 years for surveillance based on pathology results. Procedure Code(s): --- Professional --- 06173, Colonoscopy, flexible; with biopsy, single or multiple Diagnosis Code(s): --- Professional --- D12.4, Benign neoplasm of descending colon R19.7, Diarrhea, unspecified CPT copyright 2021 [employer]. All rights reserved. The codes documented in this report are preliminary and upon grey roll worker review may be revised to meet current compliance requirements. MD Zuri Gonzalez MD 05/23/2023 1:23:00 PM This report has been signed electronically. Number of Addenda: 0 Note Initiated On: 05/23/2023 12:41 PM
[2023-05-23 13:25] VITALS: BP 106/73; BP 124/76; PULSE 76; RESP 16; O2SAT 96
[2023-05-23 13:27] VITALS: BP 108/78; BP 124/76; PULSE 74; RESP 16; TEMP 36.4; O2SAT 97
[2023-05-23 13:41] VITALS: BP 124/76
== END 2023-05-23 13:47 | disposition home or self-care (01) ==
LOC: EN 10:21 → AC 10:24
PROVIDERS: PCP Family Medicine; Referring Provider Family Medicine; Visit Provider Surgery
PROC: 0DJD8ZZ Inspection of Lower Intestinal Tract, Via Natural or Artificial Opening Endoscopic (ICD-10-PCS; CPT 45378; principal; 2023-05-23 12:25)
DX: K29.70 Gastritis, unspecified, without bleeding (principal); E11.9 Type 2 diabetes mellitus without complications; D12.4 Benign neoplasm of descending colon; K63.5 Polyp of colon; Z79.84 Long term (current) use of oral hypoglycemic drugs; Z80.0 Family history of malignant neoplasm of digestive organs; I10 Essential (primary) hypertension; Z79.899 Other long term (current) drug therapy; Z79.890 Hormone replacement therapy; Z79.85 Long-term (current) use of injectable non-insulin antidiabetic drugs; E03.9 Hypothyroidism, unspecified; E78.00 Pure hypercholesterolemia, unspecified
CPT/HCPCS: 45380; 43239; 82962; 88305; 88342; J7120; J2405

== ENCOUNTER → 2023-08-31 | Outpatient (CLI) | payer OTHER, SELFPAY ==
[2023-08-31 10:55] LABS: Insulin 22.1 mU/L (2.6-37.6)
[2023-08-31 11:01] LABS: Anion Gap 6 (5-15); BUN 14 mg/dL (7-18); BUN/Creat Ratio 11.1 RATIO (10-20); Calcium,Total 9.5 mg/dL (8.5-10.1); Chloride 104 mmol/L (98-107); Creatinine, Serum 1.26 mg/dL (0.70-1.30); EST Glomerular Filtration Rate 62 mL/min (>60); Est Glom Filt Rate - Afr Amer 75 mL/min (>60); Glucose 238 mg/dL (74-106); PSA,Total - Annual Screen 1.22 ng/mL (0.00-4.00); Potassium 3.5 mmol/L (3.5-5.1); Sodium Level 138 mmol/L (136-145)
[2023-09-01 12:10] LABS: C-Peptide 6.5 ng/mL (1.1-4.4)
== END | disposition home or self-care (01) ==
LOC: MFPLAB 08:39
PROVIDERS: PCP Family Medicine; Visit Provider Family Medicine
DX: Z12.5 Encounter for screening for malignant neoplasm of prostate (principal); E11.65 Type 2 diabetes mellitus with hyperglycemia; E11.59 Type 2 diabetes mellitus with other circulatory complications; E03.9 Hypothyroidism, unspecified
CPT/HCPCS: 36415; 80048; 83525; 84153; 84443; 84681; G0103

== ENCOUNTER → 2024-11-08 | Outpatient (CLI) | payer OTHER, SELFPAY ==
--- OUTSIDE RECORDS SUMMARY | 2024-11-08 11:12 | XMS RPT_ITS | CCD ---
Author Organization [facility] Care Team Providers Care Plan Nurse Name Role Phone Dr. Matthew Bustos Primary Care Provider [phone] Dr. Matthew Bustos Referring Provider Roof ENTERTAINMENT MANAGER, YESICA-Maricarmen Basilio Attending Provider [phone] Matthew Bustos Primary Care Provider [phone] Dr. Matthew Bustos Referring Provider Roof ENTERTAINMENT MANAGER, YESICA-Maricarmen Basilio Attending Provider [phone] Zuri Greenberg Attending Provider Dr. Zuri Greenberg Other Provider Dr. Deepak Bustos Primary Care Provider [phone] Dr. Deepak Bustos Referring Provider [phone] Dr. Zuri Greenberg Attending Provider Dr. Zuri Greenberg Other Provider Deepak Bustos Primary Care Unavailable Kash Peoples NP Attending Unavailable Deepak Bustos Referring Unavailable Zuri Greenberg Consulting Unavailable Zuri Greenberg Attending Unavailable Deepak Bustos Referring Unavailable Deepak Bustos Primary Care Unavailable Zuri Greenberg Attending Unavailable Deepak Bustos Referring Unavailable Juli, Christophmarcell Primary Care Unavailable Juli, Christophmarcell Primary Care Unavailable Deepak Bustos Attending Unavailable Deepak Bustos Attending Unavailable Juli, Christophmarcell Primary Care Unavailable Cristian Hutchinson Attending Unavailable Ransugey, Christopher Primary Care Unavailable Tong Bagley Attending Unavailable Juli, Christophmarcell Primary Care Unavailable Deepak Bustos Attending Unavailable Juli, Christophmarcell Primary Care Unavailable Zuri Greenberg Attending Unavailable Deepak Bustos Referring Unavailable Deepak Bustos Primary Care Unavailable Medications Current Medications Medication Drug Class(es) Dates Sig (Normalized) Sig (Original) amLODIPine 10 mg oral tablet (2 sources) Dihydropyridine Calcium Channel Arjun Start: 05-05-2023 take 10 mg by mouth once daily Amlodipine Active 10 MG PO DAILY May 05, 2023 1:00am atorvastatin 40 mg oral tablet (2 sources) HMG-CoA Reductase Inhibitor Start: 05-05-2023 take 40 mg by mouth once daily Atorvastatin Active 40 MG PO DAILY May 05, 2023 1:00am Dulaglutide (4 sources) GLP-1 Receptor Agonist Start: 01-23-2023 Dulaglutide (Dulaglutide 4.5 Mg/0.5 Ml Subcutaneous Pen Injector) 4.5 mg/0.5 mL pen injector Active 4.5 MG SC .qsunday January 22, 2023 11:00pm Start: 01-23-2023 Dulaglutide (D ulaglutide 4.5 Mg/0.5 Ml Subcutaneous Pen Injector) 4.5 mg/0.5 mL pen injector Active 4.5 MG SC .qsunday January 23, 2023 12:00am ertugliflozin 15 mg oral tablet (2 sources) Start: 05-05-2023 Ertugliflozin (Steglatro) 15 mg tablet Active 15 MG PO .DIANA May 05, 2023 1:00am glimepiride 4 mg oral tablet (7 sources) Sulfonylurea Start: 02-27-2018 take 4 mg by mouth once daily in the morning Glimepiride Active 4 MG PO EVERY MORNING February 27, 2018 12:00am hydroCHLOROthiazide 25 mg / losartan potassium 100 mg oral tablet (7 sources) Thiazide Diuretic, Angiotensin 2 Receptor Arjun Start: 02-27-2018 take 1 tablet by mouth once daily Losartan-Hydrochl orothiazide Active 1 TABLET PO DAILY February 27, 2018 12:00am levothyroxine sodium 0.175 mg oral tablet (4 sources) l-Thyroxine Start: 01-23-2023 take 175 ug by mouth once daily Levothyroxine Active 175 MCG PO DAILY January 23, 2023 12:00am metFORMIN hydrochloride 1000 mg oral tablet (7 sources) Biguanide Start: 02-27-2018 take 1000 mg by mouth once daily Metformin Active 1000 MG PO DAILY February 27, 2018 12:00am Completed/Discontinued Medications Medication Drug Class(es) Dates Sig (Normalized) Sig (Original) ondansetron 4 mg disintegrating oral tablet (4 sources) Serotonin-3 Receptor Antagonist Start: 01-23-2023 End: 05-05-2023 take 4 mg by mouth every eight hours Ondansetron Discontinued 4 MG PO Q8H 7 3 January 23, 2023 12:00am May 05, 2023 10:47am microencapsulated potassium chloride 20 meq extended release oral tablet (4 sources) Start: 01-23-2023 End: 05-05-2023 take 20 mEq by mouth twice daily Potassium Chloride Discontinued 20 MEQ PO TWICE A DAY 20 January 23, 2023 12:00am May 05, 2023 10:47am Problems Active Problems Problem Classification Problem Date Documented Da te Episodic/Chronic Other gastrointestinal disorders (5 sources) Diarrhea; Translations: [Diarrhea, unspecified] 01-31-2023 Episodic Other nutritional; endocrine; and metabolic disorders (2 sources) Weight loss; Translations: [Abnormal weight loss] 05-05-2023 Episodic Other screening for suspected conditions (not mental disorders or infectious disease) (1 source) Encounter for screening for malignant neoplasm of prostate; Translations: [Encounter for screening for malignant neoplasm of prostate] Onset: 09-10-2023 Episodic Thyroid disorders (1 source) Hypothyroidism, unspecified; Translations: [Hypothyroidism, unspecified] Onset: 12-14-2022 Chronic Viral infection (4 sources) Viral disease; Translations: [Viral infection, unspecified] 01-23-2023 Episodic Past or Other Problems Problem Classification Problem Date Documented Da te Episodic/Chronic Abdominal pain (4 sources) Abdominal pain; Translations: [Unspecified abdominal pain] Onset: 02-05-2023 01-31-2023 Episodic Fluid and electrolyte disorders (8 sources) Acute hypokalemia; Translations: [Hypokalemia] Onset: 02-15-2023 01-23-2023 Episodic Nausea and vomiting (5 sources) Nausea, vomiting and diarrhea; Translations: [Nausea with vomiting, unspecified] Onset: 01-28-2023 01-23-2023 Episodic Other gastrointestinal disorders (5 sources) Diarrhea, unspecified; Translations: [Diarrhea] Onset: 05-26-2023 01-23-2023 Episodic Other nutritional; endocrine; and metabolic disorders (2 sources) Abnormal weight loss; Translations: [Loss of weight] Onset: 05-05-2023 05-05-2023 Episodic Results Test Name Value Interpretation Reference Range Facility C-Peptideon 09-01-2023 C PEPTIDE 6.5 ng/mL High 1.1-4.4 [facility] Comment on above: Order Comment: Order Date: 08/31/23Order Info: 1986-01 CPEP Result Comment: C-Pe ptide reference interval is for fasting patients. Performed at: - [facility] [id number] [employer] Appraiser: Rah Bledsoe PhD, Phone: [phone] Performed By: #### M 100.637 #### [facility] [address] [place], [place], [id number] Basic Metabolic Profile (BMP )on 08-31-2023 BUN/CRE 11.1 RATIO Normal 10-20 [facility] Comment on above: Order Comment: Order Date: 08/31/23Order Info: 666- - BMPOrder Info: 6-3 - TSHOrder Info: 2857-1 - PSA Performed By: #### M 100.637 #### [facility] [address] [place], [place], [id number] (032) CA,Total 9.5 mg/dL Normal 8.5-10.1 [facility] Comment on above: Order Comment: Order Date: 08/31/23Order Info: 666- - BMPOrder Info: 3015-3 - TSHOrder Info: 2857-1 - PSA Performed By: #### M 100.637 #### [facility] [address] [place], [place], [id number] (247 Chloride [Moles/Vol] 104 mmol/L Normal 98-107 [facility] Comment on above: Order Comment: Order Date: 08/31/23Order Info: 666- - BMPOrder Info: 6-3 - TSHOrder Info: 2857-1 - PSA Performed By: #### M 100.637 #### [facility] [address] [place], [address] CO2 [Moles/Vol] 28.0 mmol/L Normal 21.0-32.0 [facility] Comment on above: Order Comment: Order Date: 08/31/23Order Info: 666-05 - BMPOrder Info: 3016-3 - TSHOrder Info: 2857-1 - PSA Performed By: #### M 100.637 #### [facility] [address] [place], [address] Creatinine [Mass/Vol] 1.26 mg/dL Normal 0.70-1.30 [facility] Comment on above: Order Comment: Order Date: 08/31/23Order Info: 666-05 - BMPOrder Info: 3 - TSHOrder Info: 285-1 - PSA Result Comment: The validity of the calculated GFR GFRAA in patients over 70 years has not been determined. Clinical correlation is essential. Performed By: #### M 100.637 #### [facility] [address] [place], [address] EST GFR - AA 75 mL/min Normal >60 [facility] Comment on above: Order Comment: Order Date: 08/31/23Order Info: 666-05 - BMPOrder Info: 6-3 - TSHOrder Info: 2857-1 - PSA Result Comment: Afri can [place] GFR Calc Performed By: #### M 100.637 #### [facility] [address] [place], [address] GAP 6 Normal 5-15 [facility] Comment on above: Order Comment: Order Date: 08/31/23Order Info: 666-05 - BMPOrder Info: 3 - TSHOrder Info: 285-1 - PSA Performed By: #### M 100.637 #### [facility] [address] [place], [address] GFR/1.73 sq M.predicted among non-blacks MDRD (S/P/Bld) [Vol rate/Area] 62 mL/min/{1.73_m2} Normal >60 [facility] Comment on above: Order Comment: Order Date: 08/31/23Order Info: 666-05 - BMPOrder Info: 3015-07 - TSHOrder Info: 1 - PSA Result Comment: Non- GFR Calc Performed By: #### M 100.637 #### [facility] [address] [place], [address] Glucose [Mass/Vol] 238 mg/dL High 74-106 [facility] Comment on above: Order Comment: Order Date: 08/31/23Order Info: 666-05 - BMPOrder Info: 3015-07 - TSHOrder Info: 2856-05 - PSA Result Comment: Gluc ose result greater than or equal to 200 mg/dL suggests DIABETES MELLITUS per A.D.A. criteria. Performed By: #### M 100.637 #### [facility] [address] [place], [address] Potassium [Moles/Vol] 3.5 mmol/L Normal 3.5-5.1 [facility] Comment on above: Order Comment: Order Date: 08/31/23Order Info: 666-05 - BMPOrder Info: 3015-07 - TSHOrder Info: 2856-1 - PSA Performed By: #### M 100.637 #### [facility] [address] [place], [address] Sodium [Moles/Vol] 138 mmol/L Normal 136-145 [facility] Comment on above: Order Comment: Order Date: 08/31/23Order Info: 666-05 - BMPOrder Info: 3015-07 - TSHOrder Info: 2856-05 - PSA Performed By: #### M 100.637 #### [facility] [address] [place], [address] Urea nitrogen [Mass/Vol] 14 mg/dL Normal 7-18 [facility] Comment on above: Order Comment: Order Date: 08/31/23Order Info: 0667-1 - BMPOrder Info: 3016-3 - TSHOrder Info: 2857-1 - PSA Performed By: #### M 100.637 #### [facility] [address] [place], [address] Basophil percentageOrdered B y: Deepak Bustos on 08-31-2023 Chloride [Moles/Vol] 104 mmol/L 98-107 [facility] Glucose [Mass/Vol] 238 mg/dL 74-106 [facility] Comment on above: Glucose result great er than or equal to 200 mg/dLsuggests DIABETES MELLITUS per A.D.A. criteria. Potassium [Moles/Vol] 3.5 mmol/L 3.5-5.1 [facility] Sodium [Moles/Vol] 138 mmol/L 136-145 [facility] Insulinon 08-31-2023 Insulin 22.1 mU/L Normal 2.6-37.6 [facility] Comment on above: Order Comment: Order Date: 08/31/23Order Info: 3695-4 - INSU Performed By: #### M 100.637 #### [facility] [address] [place], [address] Laboratory - Chemistry and C hemistry - challengeOrdered By: Deepak Bustos on 08-31-2023 CO2 [Moles/Vol] 28.0 mmol/L 21.0-32.0 [facility] Urea nitrogen/Creatinine [Mass ratio] 11.1 mg/mg 10-20 [facility] No Panel InformationOrdered By: Deepak Bustos on 08-31-2023 C-Peptide 6.5 ng/mL 1.1-4.4 [facility] Comment on above: C-Peptide reference interval is for fasting patients.Performed at: - [facility] [id number] Director: Rah Bledsoe PhD, Phone: [phone] Estimated GFR (MDRD) Amer 75 mL/min >60 [facility] Comment on above: GFR Calc Estimated GFR (MDRD) Non-Af Amer 62 mL/min >60 [facility] Comment on above: Non- GFR Calc Insulin Level 22.1 mU/L 2.6-37.6 [facility] Prostate Specific Antigen Screen 1.22 ng/mL 0.00-4.00 [facility] Comment on above: This test was perfor med using the TPSA assay method for the[employer] chemistry system. Values obtained with differentassay methods cannot be used interchangably.When changing PSA assays in the course of monitoring apatient, additional sequential testing should be carriedout to confirm baseline values. PSA,Total - Annual Screenon 08-31-2023 PSA,TOT SCREEN 1.22 ng/mL Normal 0.00-4.00 [facility] Comment on above: Order Comment: Order Date: 08/31/23Order Info: 0667-1 - BMPOrder Info: 3016-3 - TSHOrder Info: 2857-1 - PSA Result Comment: This test was performed using the TPSA assay method for the [employer] chemistry system. Values obtained with different assay methods cannot be used interchangably. When changing PSA assays in the course of monitoring a patient, additional sequential testing should be carried out to confirm baseline values. Performed By: #### M 100.637 #### [facility] [place], [address] Serum or plasma calcium chi urement (mass/volume)Ordered By: Deepak Bustos on 08-31-2023 Calcium [Mass/Vol] 9.5 mg/dL 8.5-10.1 [facility] Serum or plasma creatinine m easurement (mass/volume)Ordered By: Deepak Bustos on 08-31-2023 Creatinine [Mass/Vol] 1.26 mg/dL 0.70-1.30 [facility] Comment on above: The validity of the calculated GFR & GFRAA in patients over 70 years has not been determined. Clinical correlation is essential. Serum or plasma thyroid stim ulating hormone (TSH) measurement (units/volume)Ordered By: Deepak Bustos on 08-31-2023 TSH Qn 1.40 uIU/mL 0.358-3.74 [facility] Serum or plasma urea nitroge n measurement (mass/volume)Ordered By: Deepak Bustos on 08-31-2023 Urea nitrogen [Mass/Vol] 14 mg/dL 7-18 [facility] Thin prep Papanicolaou smear with manual screeningOrdered By: Deepak Bustos on 08-31-2023 Thin prep Papanicolaou smear with manual screening 6 5-15 [facility] Thyroid Stim Hormone (TSH)on 08-31-2023 TSH 1.40 uIU/mL Normal 0.358-3.74 [facility] Comment on above: Order Comment: Order Date: 08/31/23Order Info: 0667-1 - BMPOrder Info: 3016-3 - TSHOrder Info: 2857-1 - PSA Performed By: #### M 100.637 #### [facility] [address] [place], [address] Bedside Glucoseon 05-23-2023 FINGERSTICK GLU 149 mg/dL High 74-106 [facility] Comment on above: Result Comment: MANN GONZALEZ OF PATIENT CARE PER NURSING PROTOCOL Performed By: #### M 100.637 #### [facility] [address] [place], [place], [address] Colonoscopy Reporton 024 Colonoscopy Report [facility] Medical Records Department [address] [facility] [place] [address] Colonoscopy Report MR#: [id number] Acct: [id number] Name: SERJIO RODRIGUEZ MICKEY Rep #: [id number] : 1960 63 From: Zuri Greenberg MD PCP: Dr. Matthew Bustos MD Status:[facility] Patient Name: Serjio Rodriguez Procedure Date: 05/23/2023 12:41 PM Date of : 1960 Age: 63 Procedure: Colonoscopy Indications: Clinically significant diarrhea of unexplained origin Providers: Zuri Greenberg MD Medicines: Monitored Anesthesia Care Patient Profile: This is a 63 year old male. Last Colonoscopy: 2012. Complications: No immediate complications. Procedure: Pre-Anesthesia Assessment: - Prior to the procedure, a History and Physical was performed, and patient medications and allergies were reviewed. The patient's tolerance of previous anesthesia was also reviewed. The risks and benefits of the procedure and the sedation options and risks were discussed with the patient. All questions were answered, and informed consent was obtained. Prior Anticoagulants: The patient has taken no anticoagulant or antiplatelet agents. ASA Grade Assessment: Per anesthesia. After reviewing the risks and benefits, the patient was deemed in satisfactory condition to undergo the procedure. After I obtained informed consent, the scope was passed under direct vision. Throughout the procedure, the patient's blood pressure, pulse, and oxygen saturations were monitored continuously. The colonoscope was introduced through the anus and advanced to the cecum, identified by appendiceal orifice and ileocecal valve. The colonoscopy was performed without difficulty. The patient tolerated the procedure well. The quality of the bowel preparation was adequate. Scope In: 12:43:00 PM Scope Withdrawal Time 0 hours 16 minutes 52 seconds Scope Out: 1:10:15 PM Total Procedure Duration Time 0 hours 27 minutes 15 seconds Findings: The perianal and digital rectal examinations were normal. A less than 5 mm polyp was found in the descending colon. The polyp was sessile. The polyp was removed with a cold biopsy forceps. Resection and retrieval were complete. Biopsy with a cold forceps random was performed for histology. The exam was otherwise without abnormality. Impression: - One less than 5 mm polyp in the descending colon, removed with a cold biopsy forceps. Resected and retrieved. - The examination was otherwise normal. - Biopsy was performed random. Recommendation: - Discharge patient to home. - Resume previous diet. - Continue present medications. - Await pathology results. - Repeat colonoscopy in 5 years for surveillance based on pathology results. Procedure Code(s): --- Professional --- 10077, Colonoscopy, flexible; with biopsy, single or multiple Diagnosis Code(s): --- Professional --- D12.4, Benign neoplasm of descending colon R19.7, Diarrhea, unspecified CPT copyright 2021 [employer]. All rights reserved. The codes documented in this report are preliminary and upon granite block paver review may be revised to meet current compliance requirements. MD Zuri Gonzalez MD 05/23/2023 1:23:00 PM This report has been signed electronically. Number of Addenda: 0 Note Initiated On: 05/23/2023 12:41 PM 05/23/23 1323 Date Zuri Greenberg MD Cosigner Signature: Date (if indicated) CC: Dr. Matthew Bustos MD; Dr. Zuri Greenberg MD Date Dictated: 05/23/23 1241 Date Transcribed: Supply Chain Intern: TR Signed Normal [facility] EGD Reporton 05-23-2023 EGD Report [facility] Medical Records Department [address] [place] [address] EGD Report MR#: [id number] Acct: [id number] Name: SERJIO RODRIGUEZ MICKEY Rep #: [id number] : 1960 63 From: Zuri Greenberg MD PCP: Dr. Matthew Bustos MD [place] Patient Name: Serjio Rodriguez Procedure Date: 05/23/2023 12:26 PM Date of : 1960 Age: 63 Procedure: Upper GI endoscopy Indications: Weight loss Providers: Zuri Greenberg MD Medicines: Monitored Anesthesia Care Patient Profile: This is a 63 year old male. Complications: No immediate complications. Procedure: Pre-Anesthesia Assessment: - Prior to the procedure, a History and Physical was performed, and patient medications and allergies were reviewed. The patient's tolerance of previous anesthesia was also reviewed. The risks and benefits of the procedure and the sedation options and risks were discussed with the patient. All questions were answered, and informed consent was obtained. Prior Anticoagulants: The patient has taken no anticoagulant or antiplatelet agents. ASA Grade Assessment: Per anesthesia. After reviewing the risks and benefits, the patient was deemed in satisfactory condition to undergo the procedure. After obtaining informed consent, the endoscope was passed under direct vision. Throughout the procedure, the patient's blood pressure, pulse, and oxygen saturations were monitored continuously. The colonoscope was introduced through the mouth, and advanced to the second part of duodenum. The upper GI endoscopy was accomplished without difficulty. The patient tolerated the procedure well. Scope In: 12:37:33 PM Scope Out: 12:41:10 PM Total Procedure Duration Time 0 hours 3 minutes 37 seconds Findings: The Z-line was variable and was found 40 cm from the incisors. Localized mildly erythematous mucosa without bleeding was found in the gastric antrum. Biopsies were taken with a cold forceps for histology. Biopsies were taken with a cold forceps for Helicobacter pylori cultures. The examined duodenum was normal. The cardia and gastric fundus were normal on retroflexion. Impression: - Z-line variable, 40 cm from the incisors. - Erythematous mucosa in the antrum. Biopsied. - Normal examined duodenum. Recommendation: - Await pathology results. - Discharge patient to home. - Resume previous diet. - Continue present medications. Procedure Code(s): --- Professional --- 62490, Esophagogastroduodenosco py, flexible, transoral; with biopsy, single or multiple Diagnosis Code(s): --- Professional --- K22.89, Other specified disease of esophagus K31.89, Other diseases of stomach and duodenum R63.4, Abnormal weight loss CPT copyright 2021 [employer]. All rights reserved. The codes documented in this report are preliminary and upon granite block paver review may be revised to meet current compliance requirements. MD Zuir Gonzalez MD 05/23/2023 1:19:02 PM This report has been signed electronically. Number of Addenda: 0 Note Initiated On: 05/23/2023 12:26 PM 05/23/23 1319 Date Zuri Greenberg MD Cosigner Signature: Date (if indicated) CC: Dr. Matthew Bustos MD; Dr. Zuri Greenberg MD Date Dictated: 05/23/23 1226 Date Transcribed: Supply Chain Intern: TR Signed Normal [facility] Glucose Glucometer (BldC) [M ass/Vol]Ordered By: Zuri Greenberg on 05-23-2023 Glucose [Mass/Vol] 149 mg/dL 74-106 [facility] Comment on above: MANAGEMENT OF PATIEN T CARE PER NURSING PROTOCOL H Pylori (initial)on 024 H Pylori (initial) Patient Age/Sex Loca tion Account Attending Physician SERJIO RODRIGUEZ 63/M EN [id number] Dr. Zuri Greenberg MD Specimen: [id number] Received: 05/23/23 Status: SOLIS Malcolm Num: [id number] Spec Type: IMMUNO Subm Dr: Dr. Zuri Greenberg MD PHYSICIAN INSTITUTION [place] [address] SPECIMEN INFORMATION: Tissue Source: A - Antral biopsy Clinical Info: Weight loss, diarrhea Specimen Number: [id number] CPT code: 97564 METHODOLOGY: Deparaffinized sections of prefer/formalin-fixed tissue or PAP/DQ stained slides are incubated with monoclonal/polyclonal antibodies/oligonucleoti de probes. Localization is made via biotin free immunoperoxidase method. Appropriate controls are performed and reacted as expected. Results on target cell population are indicated in the following table: RESULTS: ANTIBODY / CLONE RESULT Block A H Pylori (polyclonal) negative These tests were developed and their performance characteristics determined by [facility]. They may not have been cleared or approved by the U.S. Food and Drug Administration. The FDA has determined that such clearance or approval is not necessary. The above immunohistochemical/dual KATERINA markers are ordered and reviewed by the Pathologist. INTERPRETATION: A. Antral biopsy: Negative for Helicobacter pylori organisms. SJ:darlin 05/24/2023 Signed (signature on file) Dr. Jae Madrigal MD 05/24/23 1405 Normal [facility] Comment on above: Performed By: #### L 100.0100, L501.9520, L500.4050 #### [facility] [place] [address], [address] Surgery Specimen Level Simone 05-23-2023 Surgery Specimen Level IV Patient Age/Sex Location Account Attending Physician SERJIO RODRIGUEZ MICKEY 63/M EN [id number] Dr. Zuri Greenberg MD Specimen: [id number] Received: 05/23/23 Status: SOLIS Malcolm Num: [id number] Spec Type: Gastric Bx Subm Dr: Dr. Zuri Greenberg MD HEADER OPERATION: Colonoscopy with biopsies, EGD with biopsy PRE-OP DIAGNOSIS: Weight loss, diarrhea TISSUE SUBMITTED: A - Antral biopsy for H. pylori and histology, B - Descending colon polyp biopsy, C - Random colon biopsy MICROSCOPIC DIAGNOSIS A. Antrum, biopsy: Mild gastritis. See microscopic description and comment. B. Descending colon polyp, biopsy: Tubular adenoma. C. Colon, random biopsy: A fragment of colonic mucosa, no pathologic diagnosis. SJ:darlin 05/24/2023 COMMENT A. The results of immunohistochemistry for Helicobacter pylori will be reported separately ([id number]). MICROSCOPIC DESCRIPTION Slides are reviewed. A. The specimen shows fragments of gastric mucosa with chronic inflammatory cell infiltrates in the lamina propria consisting of lymphocytes and plasma cells, consistent with mild chronic gastritis. GROSS DESCRIPTION A - Received in fixative is one container labeled with the patient's name and designated antral biopsy. The specimen consists of one irregular fragment of light longoria soft tissue that measures 0.4 x 0.3 x 0.1 cm. The specimen is totally submitted in one cassette. B - Received in fixative is one container labeled with the patient's name and designated descending colon polyp biopsy. The specimen consists of one irregular fragment of light longoria soft tissue that measures 0.5 x 0.3 x 0.1 cm. The specimen is totally submitted in one cassette. C - Received in fixative is one container labeled with the patient's name and designated random colon biopsy. The specimen consists of one irregular fragment of light longoria soft tissue that measures 0.4 x 0.4 x 0.1 cm. The specimen is totally submitted in one cassette. / TULIO:darlin 05/23/2023 TC: CPT: 83122 x3 Patient Age/Sex Location Account Attending Physician SERJIO RODRIGUEZ 63/M EN [id number] Dr. Zuri Greenberg MD Signed (signature on file) Dr. Jae Madrigal MD 05/24/23 1406 Normal [facility] Comment on above: Performed By: #### L 100.0100, L501.9520, L500.4050 #### [facility] [address] [place], [address] Surgery Visit Reporton 05-05 Surgery Visit Report [facility] [address] [place] [address] OFFICE VISIT Date of Service: 05/05/23 MR#: [id number] Acct: [id number] Name: SERJIO RODRIGUEZ MICKEY Rep #: [id number] : 1960 Provider: Dr. Zuri espinoza MD Age/Sex: 63/M Location: [facility] Status: Signed Intake Vital Signs 01/31/23 10:25 05/05/23 09:46 Height 5 ft 6 in 5 ft 6 in Weight: 189 lb BMI 30.4 BP 128/82 H Blood Pressure Location Rt brachial Position Sitting Respiration 16 Intake Visit Reasons: On going diarrhea Chief Complaint: diarrhea Associate Director Financial Aid Required: No Is patient in pain?: No Allergies No Known Allergies Allergy (Verified 05/05/23 09:47) Medications glimepiride 4 mg tablet 4 mg PO QAM 02/27/18 [History Confirmed 05/05/23] losartan 100 mg-hydrochlorothiazide 25 mg tablet 1 tab PO DAILY 02/27/18 [History Confirmed 05/05/23] metformin 1,000 mg tablet 1,000 mg PO DAILY 02/27/18 [History Confirmed 05/05/23] dulaglutide 4.5 mg/0.5 mL subcutaneous pen injector (Trulicity) 4.5 mg subcut .qsunday 01/23/23 [History Confirmed 05/05/23] levothyroxine 175 mcg tablet 175 mcg PO DAILY 01/23/23 [History Confirmed 05/05/23] amlodipine 10 mg tablet mg PO 05/05/23 [History Confirmed 05/05/23] atorvastatin 40 mg tablet mg PO 05/05/23 [History Confirmed 05/05/23] ertugliflozin 15 mg tablet (Steglatro) mg PO 05/05/23 [History Confirmed 05/05/23] PFSH Medical History (Updated 05/05/23 @ 10:18 by Erika Cuellar) Diabetes Diarrhea HTN (hypertension) Weight loss Surgical History H/O thyroidectomy History of back surgery S/P colonoscopy S/P LASIK surgery S/P tonsillectomy Family History (Updated 05/05/23 @ 09:46 by Erika Cuellar) Mother Breast cancer Diabetes Hypertension Father Hypertension Colon cancer Social History Smoking Status: Never smoker alcohol intake: current alcohol intake frequency: a few times a week HPI HPI HPI: 63-year-old male presents for weight loss and episodes of diarrhea. Patient states that he went to the ER twice due to severe diarrhea. Patient states that he has not had the diarrhea for about 3 weeks. Patient now states has bowel movements about every 3 to 4 days. Patient did have stool studies at that time in January when he had the diarrhea which were negative along with C. difficile which was negative. Patient states he has a decreased appetite denies any nausea or vomiting and denies any current abdominal pain now and states he did have abdominal pain when he had the diarrhea. Patient states he is also lost about 2025 pounds in the last 6 to 8 months- nonintentional. Patient's dad history of prostate cancer with radiation. Patient had CT abdomen pelvis at time of ER visit in January which did not show anything really acutely other than constipation. Patient's last colonoscopy was in [address] Chapa colon was normal had a biopsy of the terminal ileum which was also normal. ROS General General: Yes weight change; No appetite, fatigue, colon cancer or breast cancer HEENT HEENT: Yes eye injury and eye surgery; No difficulty swallowing, swollen glands or hoarseness Endo Endocrine: Yes thyroid disease and thyroid cancer; No diabetes mellitus, Hair loss, heat intolerance or cold intolerance Skin Skin: No rash or changing moles Musc Musculoskeletal: Yes back problems; No arthritis, rheumatoid arthritis, gout or joint pain Cardio Cardiovascular: Yes high blood pressure; No murmur, pacemaker, heart disease, atrial fibrillation, heart attack, heart stent, palpitations, shortness of breat with exertion or chest pain Psych Psychiatric: No depression, anxiety or hearing voices Resp Respiratory: No shortness of breath, No sleep apnea, No cough, No COPD, No asthma, No emphysema and No wheezing Gastro Gastrointestinal: Yes abdominal pain, No nausea or vomiting, Yes diarrhea, No constipation, No blood in stool, No acid reflux, No hemorrhoids, No ulcers, No gallbladder problem and No black,tarry stools [place] Hematologic: No blood thinners, No blood disorders, No bleeding, No anemia and No blood clots Neuro Neurologic: No numbness and No tingling Exam Const General: cooperative, healthy appearing, comfortable and no acute distress HENMT Head: normocephalic and atraumatic Neck Neck: supple Resp Effort Inspection: normal respiratory effort Cardio Rate: regular rate GI Inspection: non-distended Palpation: soft, no hernias and nontender Skin General: no rashes or lesions noted Neuro General: CN's II-XI intact bilaterally Extrem General: normal to inspection Psych Mental Status: mental status grossly normal Attitude: cooperative Assessment and Plan (more content not included)... Normal [facility] CRPon 02-11-2023 C-REACTIVE PROT 3.23 mg/L High 0.0-3.0 [facility] Comment on above: Order Comment: Order Date: 02/10/23 Order Info: 0184-1 - CBCD Result Comment: C-Re active Protein (CRP) provides useful information for the diagnosis, therapy and monitoring of inflammatory processes and associated diseases. For the evaluation of Relative Risk for Cardiovascular Disease, a High Sensitivity CRP (HSCRP) should be ordered. Performed By: #### L 100.0100, L501.9520, L500.4050 #### [facility] [address] [place], [place], [id number] Erythrocyte Sed Rateon 02-11 SED RATE 15 mm/hr Normal 0-20 [facility] Comment on above: Order Comment: Order Date: 02/10/23 Order Info: 0184-1 - CBCD Performed By: #### L 100.0100, L501.9520, L500.4050 #### [facility] [address] [place], [place], [id number] Absolute lymphocyte countOrd ered By: Matthew Bustos on 02-10-2023 Lymphocytes Auto (Unsp spec) [#/Vol] 1.56 10*3/uL 0.83-4.51 [facility] Basophil percentageOrdered B y: Matthew Bustos on 02-10-2023 Basophils/100 WBC (Bld) 0.6 % 0-1 [facility] Bilirubin [Mass/Vol] 0.60 mg/dL 0.20-1.00 [facility] Comment on above: For patients on eltr ombopag therapy, use of Dimension [place] TBIL is not recommended. Chloride [Moles/Vol] 101 mmol/L 98-107 [facility] Eosinophils/100 WBC (Bld) 0.9 % 0-5 [facility] Glucose [Mass/Vol] 307 mg/dL 74-106 [facility] Comment on above: Glucose result great er than or equal to 200 mg/dLsuggests DIABETES MELLITUS per A.D.A. criteria. Neutrophils (Bld) [#/Vol] 9.3 10*3/uL 2.0-7.7 [facility] Neutrophils/100 WBC (Bld) 79.5 % 47-70 [facility] Potassium [Moles/Vol] 4.0 mmol/L 3.5-5.1 [facility] Protein [Mass/Vol] 7.7 g/dL 6.4-8.2 [facility] Sodium [Moles/Vol] 136 mmol/L 136-145 [facility] WBC (Bld) [#/Vol] 11.7 10*3/uL 4.4-11.0 [facility] Blood erythrocytes count (nu mber/volume)Ordered By: Matthew Bustos on 02-10-2023 RBC (Bld) [#/Vol] 4.52 10*6/uL 4.6-6.2 [facility] Blood hemoglobin measurement (mass/volume)Ordered By: Matthew Bustos on 02-10-2023 Hemoglobin (Bld) [Mass/Vol] 14.8 g/dL 13.0-16.5 [facility] Blood lymphocytes/100 leukoc ytesOrdered By: Matthew Bustos on 02-10-2023 Lymphocytes/100 WBC (Bld) 13.4 % 19-41 [facility] Blood monocytes/100 leukocyt esOrdered By: Matthew Bustos on 02-10-2023 Monocytes/100 WBC (Bld) 5.0 % 0-10 [facility] Blood platelet mean volumeOr dered By: Matthew Bustos on 02-10-2023 Platelet mean volume (Bld) [Entitic vol] 9.7 fL 6.2-12.0 [facility] CBC W/Diff, Automatedon 01-15 Absolute Lymph 1.56 X10 3/uL Normal 0.83-4.51 [facility] Comment on above: Order Comment: Order Date: 02/10/23 Order Info: 0184-1 - CBCD Performed By: #### L 100.0100, L501.9520, L500.4050 #### [facility] [address] [place], [address] Absolute Neut 9.3 X10 3/uL High 2.0-7.7 [facility] Comment on above: Order Comment: Order Date: 02/10/23 Order Info: 0184-1 - CBCD Performed By: #### L 100.0100, L501.9520, L500.4050 #### [facility] [address] [place], [address] Basophils/100 WBC (Bld) 0.6 % Normal 0-1 [facility] Comment on above: Order Comment: Order Date: 02/10/23 Order Info: 0184-1 - CBCD Performed By: #### L 100.0100, L501.9520, L500.4050 #### [facility] [address] [place], [address] Eosinophils/100 WBC (Bld) 0.9 % Normal 0-5 [facility] Comment on above: Order Comment: Order Date: 02/10/23 Order Info: 0184-1 - CBCD Performed By: #### L 100.0100, L501.9520, L500.4050 #### [facility] [address] [place], [address] Erythrocyte distribution width (RBC) [Ratio] 13.1 % Normal 11.6-14.6 [facility] Comment on above: Order Comment: Order Date: 02/10/23 Order Info: 0184-1 - CBCD Performed By: #### L 100.0100, L501.9520, L500.4050 #### [facility] [address] [place], [address] Hematocrit (Bld) [Volume fraction] 45.1 % Normal 40-54 [facility] Comment on above: Order Comment: Order Date: 02/10/23 Order Info: 0184-1 - CBCD Performed By: #### L 100.0100, L501.9520, L500.4050 #### [facility] [address] [place], [address] Hemoglobin (Bld) [Mass/Vol] 14.8 g/dL Normal 13.0-16.5 [facility] Comment on above: Order Comment: Order Date: 02/10/23 Order Info: 0184-1 - CBCD Performed By: #### L 100.0100, L501.9520, L500.4050 #### [facility] [address] [place], [address] IG% 0.600 Normal 0.0-0.9 [facility] Comment on above: Order Comment: Order Date: 02/10/23 Order Info: 0184-1 - CBCD Result Comment: IG% - Immature Granulocytes (promyelocytes, myelocytes and metamyelocytes) > 1% indicates that a LEFT SHIFT is Present. Performed By: #### L 100.0100, L501.9520, L500.4050 #### [facility] [address] [place], [address] Lymphocytes/100 WBC (Bld) 13.4 % Low 19-41 [facility] Comment on above: Order Comment: Order Date: 02/10/23 Order Info: 0184-1 - CBCD Performed By: #### L 100.0100, L501.9520, L500.4050 #### [facility] [address] [place], [address] MCH (RBC) [Entitic mass] 32.7 pg High 27.0-32.0 [facility] Comment on above: Order Comment: Order Date: 02/10/23 Order Info: 0184-1 - CBCD Performed By: #### L 100.0100, L501.9520, L500.4050 #### [facility] [address] [place], [address] MCHC (RBC) [Mass/Vol] 32.8 g/dL Normal 32-36 [facility] Comment on above: Order Comment: Order Date: 02/10/23 Order Info: 018-1 - CBCD Performed By: #### L 100.0100, L501.9520, L500.4050 #### [facility] [address] [place], [address] MCV (RBC) [Entitic vol] 99.8 fL High 80-94 [facility] Comment on above: Order Comment: Order Date: 02/10/23 Order Info: 0184-1 - CBCD Performed By: #### L 100.0100, L501.9520, L500.4050 #### [facility] [address] [place], [address] Monocytes/100 WBC (Bld) 5.0 % Normal 0-10 [facility] Comment on above: Order Comment: Order Date: 02/10/23 Order Info: 0184-1 - CBCD Performed By: #### L 100.0100, L501.9520, L500.4050 #### [facility] [address] [place], [address] Neutrophils/100 WBC (Bld) 79.5 % High 47-70 [facility] Comment on above: Order Comment: Order Date: 02/10/23 Order Info: 0184-1 - CBCD Performed By: #### L 100.0100, L501.9520, L500.4050 #### [facility] [address] [place], [address] Nucleated RBC (Bld) [#/Vol] 0 10*3/uL Normal 0-5 [facility] Comment on above: Order Comment: Order Date: 02/10/23 Order Info: 0184-1 - CBCD Performed By: #### L 100.0100, L501.9520, L500.4050 #### [facility] [address] [place], [address] Platelet mean volume (Bld) [Entitic vol] 9.7 fL Normal 6.2-12.0 [facility] Comment on above: Order Comment: Order Date: 02/10/23 Order Info: 018- - CBCD Performed By: #### L 100.0100, L501.9520, L500.4050 #### [facility] [address] [place], [address] Platelets (Bld) [#/Vol] 397 10*3/uL Normal 150-450 [facility] Comment on above: Order Comment: Order Date: 02/10/23 Order Info: 0184-1 - CBCD Performed By: #### L 100.0100, L501.9520, L500.4050 #### [facility] [address] [place], [address] RBC (Bld) [#/Vol] 4.52 10*6/uL Low 4.6-6.2 [facility] Comment on above: Order Comment: Order Date: 02/10/23 Order Info: 0184-1 - CBCD Performed By: #### L 100.0100, L501.9520, L500.4050 #### [facility] [address] [place], [address] RDW SD 47.8 fl High 35.1-43.9 [facility] Comment on above: Order Comment: Order Date: 02/10/23 Order Info: 0184-1 - CBCD Performed By: #### L 100.0100, L501.9520, L500.4050 #### [facility] [address] [place], [address] WBC (Bld) [#/Vol] 11.7 10*3/uL High 4.4-11.0 [facility] Comment on above: Order Comment: Order Date: 02/10/23 Order Info: 0184-1 - CBCD Performed By: #### L 100.0100, L501.9520, L500.4050 #### [facility] [address] [place], [address] Comprehensive Metabolic Prof ilon 02-10-2023 Albumin [Mass/Vol] 3.6 g/dL Normal 3.2-5.0 [facility] Comment on above: Order Comment: Order Date: 02/10/23 Order Info: 0786-1 - CMP Order Info: 3016-3 - TSH Performed By: #### L 100.0100, L501.9520, L500.4050 #### [facility] [address] [place], [address] Albumin/Globulin [Mass ratio] 0.9 {ratio} Normal 0.9-2.4 [facility] Comment on above: Order Comment: Order Date: 02/10/23 Order Info: 0786-1 - CMP Order Info: 3016-3 - TSH Performed By: #### L 100.0100, L501.9520, L500.4050 #### [facility] [address] [place], [address] ALK P 135 U/L High 45-117 [facility] Comment on above: Order Comment: Order Date: 02/10/23 Order Info: 0786-1 - CMP Order Info: 3015-3 - TSH Performed By: #### L 100.0100, L501.9520, L500.4050 #### [facility] [address] [place], [address] ALT [Catalytic activity/Vol] 31 U/L Normal 16-61 [facility] Comment on above: Order Comment: Order Date: 02/10/23 Order Info: 0786-1 - CMP Order Info: 3 - TSH Performed By: #### L 100.0100, L501.9520, L500.4050 #### [facility] [address] [place], [address] AST [Catalytic activity/Vol] 24 U/L Normal 15-37 [facility] Comment on above: Order Comment: Order Date: 02/10/23 Order Info: 07 - CMP Order Info: 3 - TSH Performed By: #### L 100.0100, L501.9520, L500.4050 #### [facility] [address] [place], [address] Bilirubin [Mass/Vol] 0.60 mg/dL Normal 0.20-1.00 [facility] Comment on above: Order Comment: Order Date: 02/10/23 Order Info: 0786- - CMP Order Info: 3 - TSH Result Comment: For patients on eltrombopag therapy, use of Dimension [place] TBIL is not recommended. Performed By: #### L 100.0100, L501.9520, L500.4050 #### [facility] [address] [place], [address] BUN/CRE 13.2 RATIO Normal 10-20 [facility] Comment on above: Order Comment: Order Date: 02/10/23 Order Info: 0786- - CMP Order Info: 3 - TSH Performed By: #### L 100.0100, L501.9520, L500.4050 #### [facility] [address] [place], [address] CA,Total 9.3 mg/dL Normal 8.5-10.1 [facility] Comment on above: Order Comment: Order Date: 02/10/23 Order Info: 0786-1 - CMP Order Info: 3 - TSH Performed By: #### L 100.0100, L501.9520, L500.4050 #### [facility] [address] [place], [address] Chloride [Moles/Vol] 101 mmol/L Normal 98-107 [facility] Comment on above: Order Comment: Order Date: 02/10/23 Order Info: 0786 - CMP Order Info: 3015-07 - TSH Performed By: #### L 100.0100, L501.9520, L500.4050 #### [facility] [address] [place], [address] CO2 [Moles/Vol] 28.0 mmol/L Normal 21.0-32.0 [facility] Comment on above: Order Comment: Order Date: 02/10/23 Order Info: 0786- - [facility] Order Info: 3015-07 - TSH Performed By: #### L 100.0100, L501.9520, L500.4050 #### [facility] [address] [place], [address] Creatinine [Mass/Vol] 1.21 mg/dL Normal 0.70-1.30 [facility] Comment on above: Order Comment: Order Date: 02/10/23 Order Info: 0786-1 - CMP Order Info: 301-3 - TSH Result Comment: The validity of the calculated GFR GFRAA in patients over 70 years has not been determined. Clinical correlation is essential. Performed By: #### L 100.0100, L501.9520, L500.4050 #### [facility] [address] [place], [address] EST GFR - AA 78 mL/min Normal >60 [facility] Comment on above: Order Comment: Order Date: 02/10/23 Order Info: 0786 - CMP Order Info: 3 - TSH Result Comment: Afri can Mac[place] GFR Calc Performed By: #### L 100.0100, L501.9520, L500.4050 #### [facility] [address] [place], [address] GAP 7 Normal 5-15 [facility] Comment on above: Order Comment: Order Date: 02/10/23 Order Info: 785-05 - CMP Order Info: 3015-07 - TSH Performed By: #### L 100.0100, L501.9520, L500.4050 #### [facility] [address] [place], [address] GFR/1.73 sq M.predicted among non-blacks MDRD (S/P/Bld) [Vol rate/Area] 65 mL/min/{1.73_m2} Normal >60 [facility] Comment on above: Order Comment: Order Date: 02/10/23 Order Info: 07 - CMP Order Info: 3 - TSH Result Comment: Non- GFR Calc Performed By: #### L 100.0100, L501.9520, L500.4050 #### [facility] [address] [place], [address] Globulin (S) [Mass/Vol] 4.1 g/dL Normal 2.2-4.2 [facility] Comment on above: Order Comment: Order Date: 02/10/23 Order Info: 0786- - CMP Order Info: 3015-07 - TSH Performed By: #### L 100.0100, L501.9520, L500.4050 #### [facility] [address] [place], [address] Glucose [Mass/Vol] 307 mg/dL High 74-106 [facility] Comment on above: Order Comment: Order Date: 02/10/23 Order Info: 0786-1 - CMP Order Info: 3016-3 - TSH Result Comment: Gluc ose result greater than or equal to 200 mg/dL suggests DIABETES MELLITUS per A.D.A. criteria. Performed By: #### L 100.0100, L501.9520, L500.4050 #### [facility] [address] [place], [address] Potassium [Moles/Vol] 4.0 mmol/L Normal 3.5-5.1 [facility] Comment on above: Order Comment: Order Date: 02/10/23 Order Info: 0786-1 - CMP Order Info: 3 - TSH Performed By: #### L 100.0100, L501.9520, L500.4050 #### [facility] [address] [place], [address] Sodium [Moles/Vol] 136 mmol/L Normal 136-145 [facility] Comment on above: Order Comment: Order Date: 02/10/23 Order Info: 0786-1 - [facility] Order Info: 3 - TSH Performed By: #### L 100.0100, L501.9520, L500.4050 #### [facility] [address] [place], [address] T PROT 7.7 g/dL Normal 6.4-8.2 [facility] Comment on above: Order Comment: Order Date: 02/10/23 Order Info: 0786-1 - [facility] Order Info: 3 - TSH Performed By: #### L 100.0100, L501.9520, L500.4050 #### [facility] [address] [place], [address] Urea nitrogen [Mass/Vol] 16 mg/dL Normal 7-18 [facility] Comment on above: Order Comment: Order Date: 02/10/23 Order Info: 0786-1 - CMP Order Info: 3015-3 - TSH Performed By: #### L 100.0100, L501.9520, L500.4050 #### [facility] [address] [place], [address] Determination of erythrocyte mean corpuscular volume (MCV)Ordered By: Matthew Bustos on 02-10-2023 MCV (RBC) [Entitic vol] 99.8 fL 80-94 [facility] Erythrocyte sedimentation ra teOrdered By: Matthew Bustos on 02-10-2023 ESR (Bld) [Velocity] 15 mm/h 0-20 [facility] Hematocrit Auto (Bld) [Volum e fraction]Ordered By: Matthew Bustos on 02-10-2023 Hematocrit (Bld) [Volume fraction] 45.1 % 40-54 [facility] - Chemistry and C hemistry - challengeOrdered By: Matthew Bustos on 02-10-2023 ALP [Catalytic activity/Vol] 135 U/L 45-117 [facility] ALT [Catalytic activity/Vol] 31 U/L 16-61 [facility] CO2 [Moles/Vol] 28.0 mmol/L 21.0-32.0 [facility] Globulin (S) [Mass/Vol] 4.1 g/dL 2.2-4.2 [facility] Urea nitrogen/Creatinine [Mass ratio] 13.2 mg/mg 10-20 [facility] - Hematology and Cell countsOrdered By: Matthew Bustos on 02-10-2023 Erythrocyte distribution width (RBC) [Entitic vol] 47.8 fL 35.1-43.9 [facility] Erythrocyte distribution width (RBC) [Ratio] 13.1 % 11.6-14.6 [facility] Immature granulocytes/100 WBC (Bld) 0.600 % 0.0-0.9 [facility] Comment on above: IG% - Immature Granu locytes (promyelocytes, myelocytes and metamyelocytes) > 1% indicates that a LEFT SHIFT is Present. MCH (RBC) [Entitic mass] 32.7 pg 27.0-32.0 [facility] Nucleated RBC/100 WBC (Bld) [Ratio] 0 % 0-5 [facility] MCHC Auto (RBC) [Mass/Vol]Or dered By: Matthew Bustos on 02-10-2023 MCHC (RBC) [Mass/Vol] 32.8 g/dL 32-36 [facility] No Panel InformationOrdered By: Matthew Bustos on 02-10-2023 Estimated GFR (MDRD) Amer 78 mL/min >60 [facility] Comment on above: GFR Calc Estimated GFR (MDRD) Non-Af Amer 65 mL/min >60 [facility] Comment on above: Non- GFR Calc Thyroid Stimulating Hormone (TSH) 3.55 uIU/mL 0.358-3.74 [facility] Platelets bldOrdered By: Ani sam Juli on 02-10-2023 Platelets (Bld) [#/Vol] 397 10*3/uL 150-450 [facility] Serum or plasma C reactive p rotein measurement (mass/volume)Ordered By: Matthew Bustos on 02-10-2023 CRP [Mass/Vol] 3.23 mg/L 0.0-3.0 [facility] Comment on above: C-Reactive Protein ( CRP) provides useful information for thediagnosis, therapy and monitoring of inflammatory processesand associated diseases. For the evaluation of Relative Riskfor Cardiovascular Disease, a High Sensitivity CRP (HSCRP)should be ordered. Serum or plasma albumin chi urement (mass/volume)Ordered By: Matthew Bustos on 02-10-2023 Albumin [Mass/Vol] 3.6 g/dL 3.2-5.0 [facility] Serum or plasma albumin/glob ulin mass ratioOrdered By: Matthew Bustos on 02-10-2023 Albumin/Globulin [Mass ratio] 0.9 {ratio} 0.9-2.4 [facility] Serum or plasma calcium chi urement (mass/volume)Ordered By: Matthew Bustos on 02-10-2023 Calcium [Mass/Vol] 9.3 mg/dL 8.5-10.1 [facility] Serum or plasma creatinine m easurement (mass/volume)Ordered By: Matthew Bustos on 02-10-2023 Creatinine [Mass/Vol] 1.21 mg/dL 0.70-1.30 [facility] Comment on above: The validity of the calculated GFR & GFRAA in patients over 70 years has not been determined. Clinical correlation is essential. Serum or plasma urea nitroge n measurement (mass/volume)Ordered By: Matthew Bustos on 02-10-2023 Urea nitrogen [Mass/Vol] 16 mg/dL -18 [facility] Thin prep Papanicolaou smear with manual screeningOrdered By: Matthew Bustos on 02-10-2023 Thin prep Papanicolaou smear with manual screening 24 U/L 15-37 [facility] Thin prep Papanicolaou smear with manual screening 7 5-15 [facility] Thyroid Stim Hormone (TSH)on 02-10-2023 TSH 3.55 uIU/mL Normal 0.358-3.74 [facility] Comment on above: Order Comment: Order Date: 02/10/23 Order Info: [id number] - CMP Order Info: [id number] - TSH Performed By: #### L 100.0100, L501.9520, L500.4050 #### [facility] [address] [place], [address] Abdomen/Pelvis without Conto n 01-31-2023 Abdomen/Pelvis without Cont [facility] Imaging Services [address] [place] [address] Abdomen/Pelvis without Cont MR#: [id number] Acct: [id number] Name: SERJIO RODRIGUEZ MICKEY Rep #: [id number] : 1960 62 From: Gallo viramontes MD PCP: Dr. Matthew Bustos MD Status: REG ER Study: Abdomen/Pelvis without Cont Date of Exam: 01/14 01/05 Exam# [id number] Ordering Dr: Tong Bagley DO [id number] STUDY: CT ABDOMEN AND PELVIS WITHOUT CONTRAST REASON FOR EXAM: Male, 62 years old. Pain -- LLQ pain. Diarrhea with nausea and vomiting. RADIATION DOSAGE (If Supplied By Facility): CTDIvol = ( 14.10 ) mGy, DLP = ( 821.06 ) mGycm TECHNIQUE: Transaxial images were obtained from the dome of the diaphragm to the symphysis pubis without oral contrast, and without intravenous contrast. Sagittal and coronal images were reconstructed. Individualized dose optimization techniques were used for this CT. COMPARISON: None. FINDINGS: The visualized lung bases are unremarkable. The visualized portions of the heart are within normal limits. Normal liver. Normal gallbladder and extrahepatic biliary system. Normal spleen. Atrophy of the pancreas more pronounced in the head of the pancreas. Normal bilateral adrenal glands. 1 cm cyst in the posterior midportion of the right kidney. Normal left kidney. Normal visualized stomach. Normal small intestine. Moderate amount of fecal material is seen in the colon. The appendix is visualized and appears normal. There is scattered atherosclerotic calcification of the abdominal aorta, without a demonstrated aneurysm. Normal inferior vena cava. Normal retroperitoneum. Normal urinary bladder. Calcification of the vas deferens. This is seen in patients with diabetes. Normal abdominal wall. There are mild degenerative changes of the visualized lumbar spine. CT/Abdomen/Pelvis without Cont IMPRESSION: Atrophy of the pancreas. Moderate amount of fecal material is seen in the colon. Calcification of the vas deferens. Electronically Signed: Gallo Da Silva MD at 12:17 EDT , CC: Dr. Matthew Bustos MD; Dr. Tong Bagley DO Supply Chain Intern: Signed Normal [facility] Absolute lymphocyte countOrd ered By: Tong Bagley on 01-31-2023 Lymphocytes Auto (Unsp spec) [#/Vol] 1.23 10*3/uL 0.83-4.51 [facility] Basophil percentageOrdered B y: Tong Bagley on 01-31-2023 Basophils/100 WBC (Bld) 0.5 % 0-1 [facility] Bilirubin [Mass/Vol] 0.90 mg/dL 0.20-1.00 [facility] Comment on above: For patients on eltr ombopag therapy, use of Dimension [place] TBIL is not recommended. Chloride [Moles/Vol] 106 mmol/L 98-107 [facility] Eosinophils/100 WBC (Bld) 1.0 % 0-5 [facility] Glucose [Mass/Vol] 151 mg/dL 74-106 [facility] Comment on above: Fasting Glucose resu lt greater than or equal to 126 mg/dL suggests DIABETES MELLITUS per A.D.A. criteria. Neutrophils (Bld) [#/Vol] 12.2 10*3/uL 2.0-7.7 [facility] Neutrophils/100 WBC (Bld) 83.3 % 47-70 [facility] Potassium [Moles/Vol] 3.2 mmol/L 3.5-5.1 [facility] Protein [Mass/Vol] 7.8 g/dL 6.4-8.2 [facility] Sodium [Moles/Vol] 139 mmol/L 136-145 [facility] WBC (Bld) [#/Vol] 14.6 10*3/uL 4.4-11.0 [facility] Blood erythrocytes count (nu mber/volume)Ordered By: Tong Bagley on 01-31-2023 RBC (Bld) [#/Vol] 4.66 10*6/uL 4.6-6.2 [facility] Blood hemoglobin measurement (mass/volume)Ordered By: Tong Bagley on 01-31-2023 Hemoglobin (Bld) [Mass/Vol] 15.6 g/dL 13.0-16.5 [facility] Blood lymphocytes/100 leukoc ytesOrdered By: Tong Bagley on 01-31-2023 Lymphocytes/100 WBC (Bld) 8.4 % 19-41 [facility] Blood monocytes/100 leukocyt esOrdered By: Tong Bagley on 01-31-2023 Monocytes/100 WBC (Bld) 6.5 % 0-10 [facility] Blood platelet mean volumeOr dered By: Tong Bagley on 01-31-2023 Platelet mean volume (Bld) [Entitic vol] 9.2 fL 6.2-12.0 [facility] CBC W/Diff, Automatedon 01-14 Absolute Lymph 1.23 X10 3/uL Normal 0.83-4.51 [facility] Comment on above: Performed By: #### L 100.0100, L501.2450, L500.4050 #### [facility] [address] [place], [address] Absolute Neut 12.2 X10 3/uL High 2.0-7.7 [facility] Comment on above: Performed By: #### L 100.0100, L501.2450, L500.4050 #### [facility] [address] [place], [address] Basophils/100 WBC (Bld) 0.5 % Normal 0-1 [facility] Comment on above: Performed By: #### L 100.0100, L501.2450, L500.4050 #### [facility] [address] [place], [address] Eosinophils/100 WBC (Bld) 1.0 % Normal 0-5 [facility] Comment on above: Performed By: #### L 100.0100, L501.2450, L500.4050 #### [facility] [address] [place], [address] Erythrocyte distribution width (RBC) [Ratio] 13.0 % Normal 11.6-14.6 [facility] Comment on above: Performed By: #### L 100.0100, L501.2450, L500.4050 #### [facility] [address] [place], [address] Hematocrit (Bld) [Volume fraction] 45.4 % Normal 40-54 [facility] Comment on above: Performed By: #### L 100.0100, L501.2450, L500.4050 #### [facility] [address] [place], [address] Hemoglobin (Bld) [Mass/Vol] 15.6 g/dL Normal 13.0-16.5 [facility] Comment on above: Performed By: #### L 100.0100, L501.2450, L500.4050 #### [facility] [address] [place], [address] IG% 0.300 Normal 0.0-0.9 [facility] Comment on above: Result Comment: IG% - Immature Granulocytes (promyelocytes, myelocytes and metamyelocytes) > 1% indicates that a LEFT SHIFT is Present. Performed By: #### L 100.0100, L501.2450, L500.4050 #### [facility] [address] [place], [address] Lymphocytes/100 WBC (Bld) 8.4 % Low 19-41 [facility] Comment on above: Performed By: #### L 100.0100, L501.2450, L500.4050 #### [facility] [address] [place], [address] MCH (RBC) [Entitic mass] 33.5 pg High 27.0-32.0 [facility] Comment on above: Performed By: #### L 100.0100, L501.2450, L500.4050 #### [facility] [address] [place], [address] MCHC (RBC) [Mass/Vol] 34.4 g/dL Normal 32-36 [facility] Comment on above: Performed By: #### L 100.0100, L501.2450, L500.4050 #### [facility] [address] [place], [address] MCV (RBC) [Entitic vol] 97.4 fL High 80-94 [facility] Comment on above: Performed By: #### L 100.0100, L501.2450, L500.4050 #### [facility] [address] [place], [address] Monocytes/100 WBC (Bld) 6.5 % Normal 0-10 [facility] Comment on above: Performed By: #### L 100.0100, L501.2450, L500.4050 #### [facility] [address] [place], [address] Neutrophils/100 WBC (Bld) 83.3 % High 47-70 [facility] Comment on above: Performed By: #### L 100.0100, L501.2450, L500.4050 #### [facility] [address] [place], [address] Nucleated RBC (Bld) [#/Vol] 0 10*3/uL Normal 0-5 [facility] Comment on above: Performed By: #### L 100.0100, L501.2450, L500.4050 #### [facility] [address] [place], [address] Platelet mean volume (Bld) [Entitic vol] 9.2 fL Normal 6.2-12.0 [facility] Comment on above: Performed By: #### L 100.0100, L501.2450, L500.4050 #### [facility] [address] [place], [address] Platelets (Bld) [#/Vol] 326 10*3/uL Normal 150-450 [facility] Comment on above: Performed By: #### L 100.0100, L501.2450, L500.4050 #### [facility] [address] [place], [address] RBC (Bld) [#/Vol] 4.66 10*6/uL Normal 4.6-6.2 [facility] Comment on above: Performed By: #### L 100.0100, L501.2450, L500.4050 #### [facility] [address] [place], [address] RDW SD 46.4 fl High 35.1-43.9 [facility] Comment on above: Performed By: #### L 100.0100, L501.2450, L500.4050 #### [facility] [address] [place], [address] WBC (Bld) [#/Vol] 14.6 10*3/uL High 4.4-11.0 [facility] Comment on above: Performed By: #### L 100.0100, L501.2450, L500.4050 #### [facility] [address] [place], [address] CDIFF (PCR)on 01-31-2023 CDIFF Is the patient recei ving laxatives? N New/unexplained onset of 3 or more stools in past 24 hrs? Y Normal Reference Range = Not Detected C diff DNA Spec Ql TERENCE+probe Nucleic acid amplification test method C. Diff PCR Negative- No toxigenic C. Diff Detected Normal [facility] Comment on above: Performed By: #### M 100.6796 #### [facility] [address] [place], [address] Comprehensive Metabolic Prof ilon 01-31-2023 Albumin [Mass/Vol] 3.4 g/dL Normal 3.2-5.0 [facility] Comment on above: Performed By: #### L 100.0100, L501.2450, L500.4050 #### [facility] [address] [place], [address] Albumin/Globulin [Mass ratio] 0.8 {ratio} Low 0.9-2.4 [facility] Comment on above: Performed By: #### L 100.0100, L501.2450, L500.4050 #### [facility] [address] [place], [address] ALK P 117 U/L Normal 45-117 [facility] Comment on above: Performed By: #### L 100.0100, L501.2450, L500.4050 #### [facility] [address] [place], [address] ALT [Catalytic activity/Vol] 16 U/L Normal 16-61 [facility] Comment on above: Performed By: #### L 100.0100, L501.2450, L500.4050 #### [facility] [address] [place], [address] AST [Catalytic activity/Vol] 10 U/L Low 15-37 [facility] Comment on above: Performed By: #### L 100.0100, L501.2450, L500.4050 #### [facility] [address] [place], [address] Bilirubin [Mass/Vol] 0.90 mg/dL Normal 0.20-1.00 [facility] Comment on above: Result Comment: For patients on eltrombopag therapy, use of Dimension [place] TBIL is not recommended. Performed By: #### L 100.0100, L501.2450, L500.4050 #### [facility] [address] [place], [address] BUN/CRE 9.3 RATIO Low 10-20 [facility] Comment on above: Performed By: #### L 100.0100, L501.2450, L500.4050 #### [facility] [address] [place], [address] CA,Total 8.9 mg/dL Normal 8.5-10.1 [facility] Comment on above: Performed By: #### L 100.0100, L501.2450, L500.4050 #### [facility] [address] [place], [address] Chloride [Moles/Vol] 106 mmol/L Normal 98-107 [facility] Comment on above: Performed By: #### L 100.0100, L501.2450, L500.4050 #### [facility] [address] [place], [address] CO2 [Moles/Vol] 25.0 mmol/L Normal 21.0-32.0 [facility] Comment on above: Performed By: #### L 100.0100, L501.2450, L500.4050 #### [facility] [address] [place], [address] Creatinine [Mass/Vol] 1.18 mg/dL Normal 0.70-1.30 [facility] Comment on above: Result Comment: The validity of the calculated GFR GFRAA in patients over 70 years has not been determined. Clinical correlation is essential. Performed By: #### L 100.0100, L501.2450, L500.4050 #### [facility] [address] [place], [address] ECRCL 60.08 ml/min Normal [facility] Comment on above: Performed By: #### L 100.0100, L501.2450, L500.4050 #### [facility] [address] [place], [address] EST GFR - AA 81 mL/min Normal >60 [facility] Comment on above: Result Comment: Afri can Macanese GFR Calc Performed By: #### L 100.0100, L501.2450, L500.4050 #### [facility] [address] [place], [address] GAP 8 Normal 5-15 [facility] Comment on above: Performed By: #### L 100.0100, L501.2450, L500.4050 #### [facility] [address] [place], [address] GFR/1.73 sq M.predicted among non-blacks MDRD (S/P/Bld) [Vol rate/Area] 67 mL/min/{1.73_m2} Normal >60 [facility] Comment on above: Result Comment: Non- GFR Calc Performed By: #### L 100.0100, L501.2450, L500.4050 #### [facility] [address] [place], [address] Globulin (S) [Mass/Vol] 4.4 g/dL High 2.2-4.2 [facility] Comment on above: Performed By: #### L 100.0100, L501.2450, L500.4050 #### [facility] [address] [place], [address] Glucose [Mass/Vol] 151 mg/dL High 74-106 [facility] Comment on above: Result Comment: Fast ing Glucose result greater than or equal to 126 mg/dL suggests DIABETES MELLITUS per A.D.A. criteria. Performed By: #### L 100.0100, L501.2450, L500.4050 #### [facility] [address] [place], [address] Potassium [Moles/Vol] 3.2 mmol/L Low 3.5-5.1 [facility] Comment on above: Performed By: #### L 100.0100, L501.2450, L500.4050 #### [facility] [address] [place], [address] Sodium [Moles/Vol] 139 mmol/L Normal 136-145 [facility] Comment on above: Performed By: #### L 100.0100, L501.2450, L500.4050 #### [facility] [address] [place], [address] T PROT 7.8 g/dL Normal 6.4-8.2 [facility] Comment on above: Performed By: #### L 100.0100, L501.2450, L500.4050 #### [facility] [address] [place], [address] Urea nitrogen [Mass/Vol] 11 mg/dL Normal 7-18 [facility] Comment on above: Performed By: #### L 100.0100, L501.2450, L500.4050 #### [facility] [address] [place], [place], [address] Determination of erythrocyte mean corpuscular volume (MCV)Ordered By: Tong Bagley on 01-31-2023 MCV (RBC) [Entitic vol] 97.4 fL 80-94 [facility] ENTERIC PATHOGEN PANEL STOOL on 01-31-2023 EP PANEL Not detected for Campylobacter group, Salmonella species, Shigella species, Vibrio Group, Yersinia enterocolitica, EHEC (Shiga Toxin 1, Shiga Toxin 2), Norovirus Gl/Gll, and Rotavirus A. Other common stool pathogens are not detected on this panel include: Aeromonas/Plesiomonas or parasites. Order testing for these organisms separately if suspected. This is an amplified DNA test which makes it both specific and sensitive. GI pathogens Pnl Stl TERENCE+probe Normal Reference Range = Not Detected GI pathogens Pnl Stl TERENCE+probe Nucleic acid amplification test method CAMPYLOBACTER Not Detected Norovirus Not Detected Rotavirus Not Detected Salmonella Not Detected Shiga Toxin Not Detected Shigella sp. Not Detected VIBRIO Not Detected Yersinia Not Detected Normal [facility] Comment on above: Performed By: #### M 100.637 #### [facility] [address] [place], [place], [id number] Emergency Department Summary on 01-31-2023 Emergency Department Summary [facility] Medical Records Department [address] [place] [id number] Emergency Department Summary 01/31/23 MR#: [id number] Acct: [id number] Name: SERJIO RODRIGUEZ MICKEY Rep #: [id number] : 1960 62 From: Tong Stanley PCP: Dr. Matthew Bustos MD Status:REG ER Location: ED HPI HPI - GI History of Present Illness Chief Complaint: Abd Pain Informant: patient and spouse/S.O. Narrative Narrative: Presents to ED persistent diarrhea for the past 2 weeks. Yesterday increasing left-sided abdominal pain. No fevers or chills. No recent antibiotics. Reports had vomiting and diarrhea starting 2 weeks ago was seen 8 days ago in the ED. Reports laboratory studies along with testing for C. difficile returned negative. Intermittent vomiting last time was yesterday no hematemesis. Denies bloody stools. States having persistent diarrhea last time 5 AM this morning. No abdominal surgeries. Colonoscopy 8 years ago. No sick contacts. Spouse does not have symptoms. Hypertension diabetes history on thyroid medication secondary to thyroidectomy in the past. Prior similar symptoms: Yes PFSH PFSH Medical History Diabetes HTN (hypertension) Home Medications glimepiride 4 mg tablet 4 mg PO QAM 02/27/18 [History Last Taken Unknown] losartan 100 mg-hydrochlorothiazide 25 mg tablet 1 tab PO DAILY 02/27/18 [History Last Taken Unknown] metformin 1,000 mg tablet 1,000 mg PO DAILY 02/27/18 [History Last Taken Unknown] dulaglutide 4.5 mg/0.5 mL subcutaneous pen injector (Trulicity) 4.5 mg subcut .qsunday 01/23/23 [History Last Taken Unknown] levothyroxine 175 mcg tablet 175 mcg PO DAILY 01/23/23 [History Last Taken Unknown] ondansetron 4 mg disintegrating tablet 4 mg PO Q8H PRN nausea and vomiting 3 days #7 tabs 01/23/23 [Rx Last Taken Unknown] potassium chloride 20 mEq tablet,extended release(part/cryst) 20 meq PO BID 10 days #20 tabs 01/23/23 [Rx Last Taken Unknown] Allergy/AdvReac Type Severity Reaction Status Date / Time No Known Allergies Allergy Verified 01/31/23 10:25 Family History Mother Breast cancer Diabetes Hypertension Father Hypertension Surgical History H/O thyroidectomy History of back surgery S/P colonoscopy S/P LASIK surgery S/P tonsillectomy Social History Smoking Status: Never smoker alcohol intake: current alcohol intake frequency: a few times a week ROS ROS ED Constitutional Constitutional ED: Denies chills, fever(s) or sweats Eyes Eyes: Denies change in vision ENT ENT ED: Denies dysphagia or sore throat Cardiovascular Cardiovascular: Denies chest pain, leg edema, palpitations or racing heartbeat Respiratory/Chest Respiratory/Chest: Denies cough, dyspnea or dyspnea on exertion Gastrointestinal Gastrointestinal: Reports abdominal pain and diarrhea; Denies nausea or vomiting Genitourinary Genitourinary ED: Denies dysuria, hematuria or urinary frequency Musculoskeletal Musculoskeletal: Denies back pain, extremity pain or neck pain Integumentary Denies rash or wounds Neurologic Neurologic: Denies headache(s), paresthesias or weakness EXAM Physical Exam Const Vital Signs: 01/31/23 10:25 Temperature 96.2 F L Temperature Source Temporal Pulse Rate 54 L Respiratory Rate 16 Blood Pressure 138/84 H Blood Pressure Mean 102 Pulse Ox 97 Oxygen Delivery Method Room Air Positive well nourished and well developed General Appearance ED: well developed and NAD HEENT Reports moist mucous membranes normocephalic and atraumatic Eyes PERRL, EOMs intact bilaterally and conjunctivae normal General Eye ED: Yes normal appearance of both eyes Neck no lymphadenopathy and supple General: Negative for tenderness Chest Wall Chest: Negative for tenderness Resp normal respiratory effort and normal air movement Effort and Inspection: symmetric chest movement; Negative for respiratory distress Cardio regular rate, regular rhythm and no murmurs Peripheral Pulses: pulses 2+ throughout GI normal to inspection, nondistended, normoactive bowel sounds GI Narrative: Right tenderness left lower quadrant there is no guarding or rebound. Palpation: Negative for guarding or rebound tenderness present Back/Spine no CVA tenderness and no thoracic nor lumbar tenderness Extremity normal to inspection General Extremety ED: Negative for edema or tenderness General Extremity: Negative for edema Neuro oriented x3 and no sensory deficits noted Sensorium / Orientation: awake and alert Skin no rashes or lesions noted and no wounds MDM MDM MDM Narrative Medical decision making narrative: Interventions / (more content not included)... Normal [facility] Hematocrit Auto (Bld) [Volum e fraction]Ordered By: Tong Bagley on 01-31-2023 Hematocrit (Bld) [Volume fraction] 45.4 % 40-54 [facility] - Chemistry and C hemistry - challengeOrdered By: Tong Bagley on 01-31-2023 ALP [Catalytic activity/Vol] 117 U/L 45-117 [facility] ALT [Catalytic activity/Vol] 16 U/L 16-61 [facility] CO2 [Moles/Vol] 25.0 mmol/L 21.0-32.0 [facility] Globulin (S) [Mass/Vol] 4.4 g/dL 2.2-4.2 [facility] Lipase [Catalytic activity/Vol] 30 U/L 13-75 [facility] Comment on above: Please note:LIPASE r evised reference range effective 22. New Lipase methodology. Expected to produce lower values than the previous assay method. NEW Reference Range: 13 - 75 U/L Urea nitrogen/Creatinine [Mass ratio] 9.3 mg/mg 10-20 [facility] - Hematology and Cell countsOrdered By: Tong Bagley on 01-31-2023 Erythrocyte distribution width (RBC) [Entitic vol] 46.4 fL 35.1-43.9 [facility] Erythrocyte distribution width (RBC) [Ratio] 13.0 % 11.6-14.6 [facility] Immature granulocytes/100 WBC (Bld) 0.300 % 0.0-0.9 [facility] Comment on above: IG% - Immature Granu locytes (promyelocytes, myelocytes and metamyelocytes) > 1% indicates that a LEFT SHIFT is Present. MCH (RBC) [Entitic mass] 33.5 pg 27.0-32.0 [facility] Nucleated RBC/100 WBC (Bld) [Ratio] 0 % 0-5 [facility] Lipaseon 01-31-2023 Lipase [Catalytic activity/Vol] 30 U/L Normal 13-75 [facility] Comment on above: Result Comment: Felipa livingston note: LIPASE revised reference range effective 22. New Lipase methodology. Expected to produce lower values than the previous assay method. NEW Reference Range: 13 - 75 U/L Performed By: #### L 100.0100, L501.2450, L500.4050 #### [facility] [address] [place], [place], [id number] MCHC Auto (RBC) [Mass/Vol]Or dered By: Tong Bagley on 01-31-2023 MCHC (RBC) [Mass/Vol] 34.4 g/dL 32-36 [facility] No Panel InformationOrdered By: Tong Bagley on 01-31-2023 Estimated Creatinine Clearance Calc 60.08 ml/min [facility] Estimated GFR (MDRD) Amer 81 mL/min >60 [facility] Comment on above: GFR Calc Estimated GFR (MDRD) Non-Af Amer 67 mL/min >60 [facility] Comment on above: Non- GFR Calc Platelets bldOrdered By: Lee Bagley on 01-31-2023 Platelets (Bld) [#/Vol] 326 10*3/uL 150-450 [facility] Serum or plasma albumin chi urement (mass/volume)Ordered By: Tong Bagley on 01-31-2023 Albumin [Mass/Vol] 3.4 g/dL 3.2-5.0 [facility] Serum or plasma albumin/glob ulin mass ratioOrdered By: Tnog Bagley on 01-31-2023 Albumin/Globulin [Mass ratio] 0.8 {ratio} 0.9-2.4 [facility] Serum or plasma calcium chi urement (mass/volume)Ordered By: Tong Bagley on 01-31-2023 Calcium [Mass/Vol] 8.9 mg/dL 8.5-10.1 [facility] Serum or plasma creatinine m easurement (mass/volume)Ordered By: Tong Bagley on 01-31-2023 Creatinine [Mass/Vol] 1.18 mg/dL 0.70-1.30 [facility] Comment on above: The validity of the calculated GFR & GFRAA in patients over 70 years has not been determined. Clinical correlation is essential. Serum or plasma urea nitroge n measurement (mass/volume)Ordered By: Tong Bagley on 01-31-2023 Urea nitrogen [Mass/Vol] 11 mg/dL 7-18 [facility] Stool enteric pathogen panel by probe and target amplification methodOrdered By: Tong Bagley on 01-31-2023 Gastrointestinal pathogens panel TERENCE+probe (Stl) [facility] Gastrointestinal pathogens panel TERENCE+probe (Stl) [facility] Thin prep Papanicolaou smear with manual screeningOrdered By: Tong Bagley on 01-31-2023 Thin prep Papanicolaou smear with manual screening 10 U/L 15-37 [facility] Thin prep Papanicolaou smear with manual screening 8 5-15 [facility] Absolute lymphocyte countOrd ered By: Cristian Hutchinson on 01-23-2023 Lymphocytes Auto (Unsp spec) [#/Vol] 1.48 10*3/uL 0.83-4.51 [facility] Basic Metabolic Profile (BMP )on 01-23-2023 BUN/CRE 9.4 RATIO Low 10-20 [facility] Comment on above: Performed By: #### M 100.637 #### [facility] [address] [place], [address] CA,Total 8.9 mg/dL Normal 8.5-10.1 [facility] Comment on above: Performed By: #### M 100.637 #### [facility] [address] [place], [address] Chloride [Moles/Vol] 109 mmol/L High 98-107 [facility] Comment on above: Performed By: #### M 100.637 #### [facility] [address] [place], [address] CO2 [Moles/Vol] 23.0 mmol/L Normal 21.0-32.0 [facility] Comment on above: Performed By: #### M 100.637 #### [facility] [address] [place], [address] Creatinine [Mass/Vol] 1.38 mg/dL High 0.70-1.30 [facility] Comment on above: Result Comment: The validity of the calculated GFR GFRAA in patients over 70 years has not been determined. Clinical correlation is essential. Performed By: #### M 100.637 #### [facility] [address] [place], [address] ECRCL 51.37 ml/min Normal [facility] Comment on above: Performed By: #### M 100.637 #### [facility] [address] [place], [address] EST GFR - AA 67 mL/min Normal >60 [facility] Comment on above: Result Comment: Afri can Macanese GFR Calc Performed By: #### M 100.637 #### [facility] [address] [place], [address] GAP 4 Low 5-15 [facility] Comment on above: Performed By: #### M 100.637 #### [facility] [address] [place], [address] GFR/1.73 sq M.predicted among non-blacks MDRD (S/P/Bld) [Vol rate/Area] 56 mL/min/{1.73_m2} Low >60 [facility] Comment on above: Result Comment: Non- GFR Calc Performed By: #### M 100.637 #### [facility] [address] [place], [address] Glucose [Mass/Vol] 141 mg/dL High 74-106 [facility] Comment on above: Result Comment: Fast ing Glucose result greater than or equal to 126 mg/dL suggests DIABETES MELLITUS per A.D.A. criteria. Performed By: #### M 100.637 #### [facility] [address] [place], [address] Potassium [Moles/Vol] 2.8 mmol/L Low 3.5-5.1 [facility] Comment on above: Performed By: #### M 100.637 #### [facility] [address] [place], [address] Sodium [Moles/Vol] 136 mmol/L Normal 136-145 [facility] Comment on above: Performed By: #### M 100.637 #### [facility] [address] [place], [address] Urea nitrogen [Mass/Vol] 13 mg/dL Normal 7-18 [facility] Comment on above: Performed By: #### M 100.637 #### [facility] [address] [place], [address] Basophil percentageOrdered B y: Cristian Hutchinson on 01-23-2023 Basophils/100 WBC (Bld) 0.8 % 0-1 [facility] Chloride [Moles/Vol] 109 mmol/L 98-107 [facility] Eosinophils/100 WBC (Bld) 2.0 % 0-5 [facility] Glucose [Mass/Vol] 141 mg/dL 74-106 [facility] Comment on above: Fasting Glucose resu lt greater than or equal to 126 mg/dL suggests DIABETES MELLITUS per A.D.A. criteria. Neutrophils (Bld) [#/Vol] 5.9 10*3/uL 2.0-7.7 [facility] Neutrophils/100 WBC (Bld) 66.8 % 47-70 [facility] Potassium [Moles/Vol] 2.8 mmol/L 3.5-5.1 [facility] Sodium [Moles/Vol] 136 mmol/L 136-145 [facility] WBC (Bld) [#/Vol] 8.9 10*3/uL 4.4-11.0 [facility] Blood erythrocytes count (nu mber/volume)Ordered By: Cristian Hutchinson on 01-23-2023 RBC (Bld) [#/Vol] 4.77 10*6/uL 4.6-6.2 [facility] Blood hemoglobin measurement (mass/volume)Ordered By: Cristian Hutchinson on 01-23-2023 Hemoglobin (Bld) [Mass/Vol] 15.5 g/dL 13.0-16.5 [facility] Blood lymphocytes/100 leukoc ytesOrdered By: Cristian Hutchinson on 01-23-2023 Lymphocytes/100 WBC (Bld) 16.7 % 19-41 [facility] Blood monocytes/100 leukocyt esOrdered By: Cristian Hutchinson on 01-23-2023 Monocytes/100 WBC (Bld) 13.4 % 0-10 [facility] Blood platelet mean volumeOr dered By: Cristian Hutchinson on 01-23-2023 Platelet mean volume (Bld) [Entitic vol] 9.4 fL 6.2-12.0 [facility] CBC W/Diff, Automatedon 01-14 0-2022 Absolute Lymph 1.48 X10 3/uL Normal 0.83-4.51 [facility] Comment on above: Performed By: #### M 100.637 #### [facility] [address] [place], [address] Absolute Neut 5.9 X10 3/uL Normal 2.0-7.7 [facility] Comment on above: Performed By: #### M 100.637 #### [facility] [address] [place], [address] Basophils/100 WBC (Bld) 0.8 % Normal 0-1 [facility] Comment on above: Performed By: #### M 100.637 #### [facility] [address] [place], [address] Eosinophils/100 WBC (Bld) 2.0 % Normal 0-5 [facility] Comment on above: Performed By: #### M 100.637 #### [facility] [address] [place], [address] Erythrocyte distribution width (RBC) [Ratio] 12.6 % Normal 11.6-14.6 [facility] Comment on above: Performed By: #### M 100.637 #### [facility] [address] [place], [address] Hematocrit (Bld) [Volume fraction] 45.0 % Normal 40-54 [facility] Comment on above: Performed By: #### M 100.637 #### [facility] [address] [place], [address] Hemoglobin (Bld) [Mass/Vol] 15.5 g/dL Normal 13.0-16.5 [facility] Comment on above: Performed By: #### M 100.637 #### [facility] [address] [place], [address] IG% 0.300 Normal 0.0-0.9 [facility] Comment on above: Result Comment: IG% - Immature Granulocytes (promyelocytes, myelocytes and metamyelocytes) > 1% indicates that a LEFT SHIFT is Present. Performed By: #### M 100.637 #### [facility] [address] [place], [address] Lymphocytes/100 WBC (Bld) 16.7 % Low 19-41 [facility] Comment on above: Performed By: #### M 100.637 #### [facility] [address] [place], [address] MCH (RBC) [Entitic mass] 32.5 pg High 27.0-32.0 [facility] Comment on above: Performed By: #### M 100.637 #### [facility] [address] [place], [address] MCHC (RBC) [Mass/Vol] 34.4 g/dL Normal 32-36 [facility] Comment on above: Performed By: #### M 100.637 #### [facility] [address] [place], [address] MCV (RBC) [Entitic vol] 94.3 fL High 80-94 [facility] Comment on above: Performed By: #### M 100.637 #### [facility] [address] [place], [address] Monocytes/100 WBC (Bld) 13.4 % High 0-10 [facility] Comment on above: Performed By: #### M 100.637 #### [facility] [address] [place], [address] Neutrophils/100 WBC (Bld) 66.8 % Normal 47-70 [facility] Comment on above: Performed By: #### M 100.637 #### [facility] [address] [place], [address] Nucleated RBC (Bld) [#/Vol] 0 10*3/uL Normal 0-5 [facility] Comment on above: Performed By: #### M 100.637 #### [facility] [address] [place], [address] Platelet mean volume (Bld) [Entitic vol] 9.4 fL Normal 6.2-12.0 [facility] Comment on above: Performed By: #### M 100.637 #### [facility] [address] [place], [address] Platelets (Bld) [#/Vol] 291 10*3/uL Normal 150-450 [facility] Comment on above: Performed By: #### M 100.637 #### [facility] [address] [place], [address] RBC (Bld) [#/Vol] 4.77 10*6/uL Normal 4.6-6.2 [facility] Comment on above: Performed By: #### M 100.637 #### [facility] [address] [place], [address] RDW SD 43.8 fl Normal 35.1-43.9 [facility] Comment on above: Performed By: #### M 100.637 #### [facility] [address] [place], [address] WBC (Bld) [#/Vol] 8.9 10*3/uL Normal 4.4-11.0 [facility] Comment on above: Performed By: #### M 100.637 #### [facility] [address] [place], [address] Clostridium Diff Toxin/Agon 01-23-2023 CDIFF (EIA) Interpretation of C. diff by EIA Method C diff Stl Ql C diff Stl Ql Negative for toxigenic C. difficile, or below limit of detection. C. difficile Antigen Negative C. diff A/B Antigen C. difficile Toxin Negative C. diff Toxin Normal [facility] Comment on above: Performed By: #### L 100.0100, L501.9520, L500.4050 #### [facility] [address] [place], [address] Determination of erythrocyte mean corpuscular volume (MCV)Ordered By: Cristian Hutchinson on 01-23-2023 MCV (RBC) [Entitic vol] 94.3 fL 80-94 [facility] Emergency Department Summary on 01-23-2023 Emergency Department Summary [facility] Medical Records Department [address] [place] [address] Emergency Department Summary 01/23/23 MR#: [id number] Acct: [id number] Name: SERJIO RODRIGUEZ MICKEY Rep #: [id number] : 1960 62 From: Cristian Hutchinson MD PCP: Dr. Matthew Bustos MD Status:DEP ER Location: ED HPI HPI - GI History of Present Illness Chief Complaint: Nausea/Vomiting/Diarrhea Detail of Chief Complaint: For approximately 1 week. Informant: patient and spouse/S.O. Abdominal Pain/Flank Pain Onset: Days Context: Gradual Onset Timing: Continuous Nausea/Vomiting/Emesis GI Symptom: Positive for Nausea and Vomiting Onset: Days Severity: Mild Diarrhea/Melena/Hematoch ezia GI Symptom: Positive for Diarrhea; Negative for Melena or Hematochezia Onset: Days Stool Quality: Positive for Watery Severity: Moderate Associated Symptoms Associated Symptoms: Negative for Dysuria, Frequency, Hematuria or Urgency Narrative Narrative: 62-year-old male history of hypertension and diabetes. Patient states he had nausea, vomiting diarrhea since Tuesday. Its been basically a week. States thrown up several times a day. No hematemesis. No melena. He is having 5-10 episodes of diarrhea a day. No recent antibiotic. No recent surgery nor hospitalization. No prior history. No one else at home is ill. He denies any fever. He is really not having any abdominal pain. Prior similar symptoms: No Recent Illness/[facility]: [facility] Medical History (Updated 01/23/23 @ 17:[address] Cristian Hutchinson MD) Diabetes HTN (hypertension) Home Medications glimepiride 4 mg tablet 4 mg PO QAM 02/27/18 [History Last Taken Unknown] losartan 100 mg-hydrochlorothiazide 25 mg tablet 1 tab PO DAILY 02/27/18 [History Last Taken Unknown] metformin 1,000 mg tablet 1,000 mg PO DAILY 02/27/18 [History Last Taken Unknown] dulaglutide 4.5 mg/0.5 mL subcutaneous pen injector (Trulicity) 4.5 mg subcut .qsunday 01/23/23 [History Last Taken Unknown] levothyroxine 175 mcg tablet 175 mcg PO DAILY 01/23/23 [History Last Taken Unknown] ondansetron 4 mg disintegrating tablet 4 mg PO Q8H PRN nausea and vomiting 3 days #7 tabs 01/23/23 [Rx Last Taken Unknown] potassium chloride 20 mEq tablet,extended release(part/cryst) 20 meq PO BID 10 days #20 tabs 01/23/23 [Rx Last Taken Unknown] Allergy/AdvReac Type Severity Reaction Status Date / Time No Known Allergies Allergy Verified 01/23/23 14:19 Family History Mother Breast cancer Diabetes Hypertension Father Hypertension Surgical History (Updated 01/23/23 @ 15:39 by Julio Herrera) H/O thyroidectomy History of back surgery S/P colonoscopy S/P LASIK surgery S/P tonsillectomy Social History Smoking Status: Never smoker alcohol intake: current alcohol intake frequency: a few times a week ROS ROS ED ROS Narrative Nausea, vomiting and diarrhea. Review of Systems ROS Unobtainable: Denies due to encephalopathy Constitutional Constitutional ED: Denies chills or fever(s) ENT ENT ED: Denies ear pain Cardiovascular Cardiovascular: Denies chest pain Respiratory/Chest Respiratory/Chest: Denies cough or dyspnea Gastrointestinal Gastrointestinal: Reports diarrhea, nausea and vomiting; Denies abdominal pain, constipation or melena Genitourinary Genitourinary ED: Denies dysuria or hematuria Musculoskeletal Musculoskeletal: Denies arthralgias Integumentary Denies abscess Neurologic Neurologic: Denies headache(s) Psychiatric Psychiatric: Denies anxiety Endocrine Endocrinology: Denies polydipsia Hematologic/Lymphatic Hematologic/Lymphatic: Denies easy bleeding Allergic/Immunologic Allergic/Immunologic ED: Denies mouth swelling or tongue swelling EXAM Physical Exam Narrative Exam Narrative: 62-year-old male vital signs stable afebrile his blood pressure is low at 97/76 consistent with dehydration. HEENT exam unremarkable. No facial droop. Moist mucous membranes. Neck nontender no lymphadenopathy. Lungs clear to auscultation bilaterally. Heart regular rhythm rate about 95 no murmur. Abdomen soft, nontender, nondistended, normal bowel sounds without peritoneal signs. No localizing tenderness. Back nontender. Moving all 4 extremities. He is awake and alert. Normal motor strength. Answering questions and following commands. Const Vital Signs: 01/23/23 14:18 01/23/23 17:32 Temperature 98 F Temperature Source Temporal Pulse Rate 95 81 Respiratory Rate 16 16 Blood Pressure 97/76 109/71 Blood Pressure Mean 83 83 Pulse Ox 100 99 Oxygen Delivery Method Room Air Room Air Positive well nourished and well developed; Negative for obese, cachectic, contractures or unkempt General Appearance ED: well developed (more content not included)... Normal [facility] Hematocrit Auto (Bld) [Volum e fraction]Ordered By: Cristian Hutchinson on 01-23-2023 Hematocrit (Bld) [Volume fraction] 45.0 % 40-54 [facility] - Chemistry and C hemistry - challengeOrdered By: Cristian Hutchinson on 01-23-2023 CO2 [Moles/Vol] 23.0 mmol/L 21.0-32.0 [facility] Urea nitrogen/Creatinine [Mass ratio] 9.4 mg/mg 10-20 [facility] - Hematology and Cell countsOrdered By: Cristian Hutchinson on 01-23-2023 Erythrocyte distribution width (RBC) [Entitic vol] 43.8 fL 35.1-43.9 [facility] Erythrocyte distribution width (RBC) [Ratio] 12.6 % 11.6-14.6 [facility] Immature granulocytes/100 WBC (Bld) 0.300 % 0.0-0.9 [facility] Comment on above: IG% - Immature Granu locytes (promyelocytes, myelocytes and metamyelocytes) > 1% indicates that a LEFT SHIFT is Present. MCH (RBC) [Entitic mass] 32.5 pg 27.0-32.0 [facility] Nucleated RBC/100 WBC (Bld) [Ratio] 0 % 0-5 [facility] ([facility]) [Mass/Vol]Or dered By: Cristian Hutchinson on 01-23-2023 MCHC (RBC) [Mass/Vol] 34.4 g/dL 32-36 [facility] No Panel InformationOrdered By: Cristian Hutchinson on 01-23-2023 Estimated Creatinine Clearance Calc 51.37 ml/min [facility] Estimated GFR (MDRD) Amer 67 mL/min >60 [facility] Comment on above: GFR Calc Estimated GFR (MDRD) Non-Af Amer 56 mL/min >60 [facility] Comment on above: Non- GFR Calc Platelets bldOrdered By: Sean Hutchinson on 01-23-2023 Platelets (Bld) [#/Vol] 291 10*3/uL 150-450 [facility] Serum or plasma calcium chi urement (mass/volume)Ordered By: Cristian Hutchinson on 01-23-2023 Calcium [Mass/Vol] 8.9 mg/dL 8.5-10.1 [facility] Serum or plasma creatinine m easurement (mass/volume)Ordered By: Cristian Hutchinson on 01-23-2023 Creatinine [Mass/Vol] 1.38 mg/dL 0.70-1.30 [facility] Comment on above: The validity of the calculated GFR & GFRAA in patients over 70 years has not been determined. Clinical correlation is essential. Serum or plasma urea nitroge n measurement (mass/volume)Ordered By: Cristian Hutchinson on 01-23-2023 Urea nitrogen [Mass/Vol] 13 mg/dL 7-18 [facility] Stool Clostridium difficile detectionOrdered By: Cristian Hutchinson on 01-23-2023 C. difficile Ql (Stl) [facility] C. difficile Ql (Stl) [facility] Thin prep Papanicolaou smear with manual screeningOrdered By: Cristian Hutchinson on 01-23-2023 Thin prep Papanicolaou smear with manual screening 4 5-15 [facility] Urgent Care Visit Reporton 0 01-23-2023 Urgent Care Visit Report [facility] [address] [place] [address] OFFICE VISIT Date of Service: 01/23/23 MR#: [id number] Acct: [id number] Name: SERJIO RODRIGUEZ MICKEY Rep #: [id number] : 1960 Provider: NANCY machado Age/Sex: 62/M Location: [facility] Status: Signed Intake Vital Signs 04/17/18 09:32 01/23/23 13:38 Height 5 ft 6 in 5 ft 6 in Weight: 191 lb BMI 30.8 BP 97/67 Blood Pressure Location Lt brachial Position Sitting Respiration 16 Pulse 87 Pulse Source Monitor Pulse Oximetry (%) 96 Oxygen Delivery Method room air Intake Visit Reasons: Diarrhea Chief Complaint: diarrhea Associate Director Financial Aid Required: No Accompanied by: Self Is patient in pain?: Yes Allergies No Known Allergies Allergy (Verified 01/23/23 13:39) Medications glimepiride 4 mg tablet 4 mg PO QAM 02/27/18 [History Confirmed 01/23/23] losartan 100 mg-hydrochlorothiazide 25 mg tablet 1 tab PO DAILY 02/27/18 [History Confirmed 01/23/23] metformin 1,000 mg tablet 1,000 mg PO DAILY 02/27/18 [History Confirmed 01/23/23] PFSH Medical History Diabetes HTN (hypertension) Surgical History History of back surgery S/P colonoscopy S/P LASIK surgery S/P tonsillectomy Family History Mother Breast cancer Diabetes Hypertension Father Hypertension Social History Smoking Status: Never smoker alcohol intake: current alcohol intake frequency: a few times a week HPI HPI Chief Complaint: diarrhea Details: SERJIO RODRIGUEZ, is a 62 M who presents to the office today for concerns regarding diarrhea. This started six days ago. He denies any obvious trigger. Since then, his food intake has been low. He has been drinking water and Gatorade. He doesn't think he is drinking enough to remain hydration. He states been sleeping more. This cream colored diarrhea. He denies working with livestock. He denies starting antibiotics. He states very foul odor. He denies fever. He states abdominal cramping, but states lower abdomen tightness. He states the tightness is diffuse rather than one quadrant over the other. He denies obvious blood. He denies diet changes. He denies such symptoms previous or family history of GI related issues. ROS Const Constitutional: Positive for other (See HPI) Exam Const General: cooperative, healthy appearing, comfortable and not in acute distress GI Inspection: normal to inspection, non-distended and no obesity Auscultation: normal bowel sounds Percussion: normal to percussion Palpation: soft, not firm, no guarding, no hepatomegaly, no hepatosplenomegaly, no hernias, no masses, no pulsatile masses, not rigid, no splenomegaly, nontender and No ascites Rectal Exam: visual inspection normal Coding Level of Care Code Off vis,est,level 2 Diagnoses Diarrhea, unspecified type R19.7 Diarrhea type: unspecified type Assessment and Plan Assessment and Plan (1) Diarrhea: Qualifiers: Diarrhea type: unspecified type Qualified Code(s): R19.7 - Diarrhea, unspecified Plan: He was asked to present to the ER for hydration and laboratory testing. He may need imaging and stool testing to help figure if inflammatory or infectious related. He declines EMS transportation. 01/23/23 1406 Date [facility] ENTERTAINMENT MANAGER ENTERTAINMENT MANAGER-Maricarmen Harringtonignmarcell Signature: Date (if applicable) CC: Dr. Matthew Bustos MD Normal [facility] Basophil percentageOrdered B y: Matthew Bustos on 12-08-2022 Bilirubin [Mass/Vol] 0.90 mg/dL 0.20-1.00 [facility] Comment on above: For patients on eltr ombopag therapy, use of Dimension [place] TBIL is not recommended. Chloride [Moles/Vol] 103 mmol/L 98-107 [facility] Glucose [Mass/Vol] 173 mg/dL 74-106 [facility] Comment on above: Fasting Glucose resu lt greater than or equal to 126 mg/dL suggests DIABETES MELLITUS per A.D.A. criteria. Potassium [Moles/Vol] 3.9 mmol/L 3.5-5.1 [facility] Protein [Mass/Vol] 8.2 g/dL 6.4-8.2 [facility] Sodium [Moles/Vol] 136 mmol/L 136-145 [facility] Comprehensive Metabolic Prof ilon 12-08-2022 Albumin [Mass/Vol] 4.1 g/dL Normal 3.2-5.0 [facility] Comment on above: Performed By: #### L 501.9520, L500.4050, L506.0400 #### [facility] [address] [place], [address] Albumin/Globulin [Mass ratio] 1.0 {ratio} Normal 0.9-2.4 [facility] Comment on above: Performed By: #### L 501.9520, L500.4050, L506.0400 #### [facility] [address] [place], [address] ALK P 123 U/L High 45-117 [facility] Comment on above: Performed By: #### L 501.9520, L500.4050, L506.0400 #### [facility] [address] [place], [address] ALT [Catalytic activity/Vol] 27 U/L Normal 16-61 [facility] Comment on above: Performed By: #### L 501.9520, L500.4050, L506.0400 #### [facility] [address] [place], [address] AST [Catalytic activity/Vol] 18 U/L Normal 15-37 [facility] Comment on above: Performed By: #### L 501.9520, L500.4050, L506.0400 #### [facility] [address] [place], [address] Bilirubin [Mass/Vol] 0.90 mg/dL Normal 0.20-1.00 [facility] Comment on above: Result Comment: For patients on eltrombopag therapy, use of Dimension [place] TBIL is not recommended. Performed By: #### L 501.9520, L500.4050, L506.0400 #### [facility] [address] [place], [address] BUN/CRE 16.1 RATIO Normal 10-20 [facility] Comment on above: Performed By: #### L 501.9520, L500.4050, L506.0400 #### [facility] [address] [place], [address] CA,Total 9.5 mg/dL Normal 8.5-10.1 [facility] Comment on above: Performed By: #### L [id number], [id number], L506.0400 #### [facility] [address] [place], [address] Chloride [Moles/Vol] 103 mmol/L Normal 98-107 [facility] Comment on above: Performed By: #### L [id number], [id number], L506.0400 #### [facility] [address] [place], [address] CO2 [Moles/Vol] 28.0 mmol/L Normal 21.0-32.0 [facility] Comment on above: Performed By: #### L [id number], [id number], L506.0400 #### [facility] [address] [place], [address] Creatinine [Mass/Vol] 1.18 mg/dL Normal 0.70-1.30 [facility] Comment on above: Result Comment: The validity of the calculated GFR GFRAA in patients over 70 years has not been determined. Clinical correlation is essential. Performed By: #### L [id number], [id number], L506.0400 #### [facility] [address] [place], [address] EST GFR - AA 81 mL/min Normal >60 [facility] Comment on above: Result Comment: Afri can Macanese GFR Calc Performed By: #### L [id number], [id number], L506.0400 #### [facility] [address] [place], [address] GAP 5 Normal 5-15 [facility] Comment on above: Performed By: #### L [id number], [id number], L506.0400 #### [facility] [address] [place], [address] GFR/1.73 sq M.predicted among non-blacks MDRD (S/P/Bld) [Vol rate/Area] 67 mL/min/{1.73_m2} Normal >60 [facility] Comment on above: Result Comment: Non- GFR Calc Performed By: #### L [id number], L500.4050, L506.0400 #### [facility] [address] [place], [address] Globulin (S) [Mass/Vol] 4.1 g/dL Normal 2.2-4.2 [facility] Comment on above: Performed By: #### L [id number], [id number], L506.0400 #### [facility] [address] [place], [address] Glucose [Mass/Vol] 173 mg/dL High 74-106 [facility] Comment on above: Result Comment: Fast ing Glucose result greater than or equal to 126 mg/dL suggests DIABETES MELLITUS per A.D.A. criteria. Performed By: #### L [id number], [id number], L506.0400 #### [facility] [address] [place], [address] Potassium [Moles/Vol] 3.9 mmol/L Normal 3.5-5.1 [facility] Comment on above: Performed By: #### L [id number], [id number], L506.0400 #### [facility] [address] [place], [address] Sodium [Moles/Vol] 136 mmol/L Normal 136-145 [facility] Comment on above: Performed By: #### L [id number], [id number], [id number] #### [facility] [address] [place], [address] T PROT 8.2 g/dL Normal 6.4-8.2 [facility] Comment on above: Performed By: #### L [id number], [id number], [id number] #### [facility] [address] [place], [address] Urea nitrogen [Mass/Vol] 19 mg/dL High 7-18 [facility] Comment on above: Performed By: #### L [id number], [id number], [id number] #### [facility] [address] [place], [address] Laboratory - Chemistry and C hemistry - challengeOrdered By: Matthew Bustos on 12-08-2022 ALP [Catalytic activity/Vol] 123 U/L 45-117 [facility] ALT [Catalytic activity/Vol] 27 U/L 16-61 [facility] CO2 [Moles/Vol] 28.0 mmol/L 21.0-32.0 [facility] Free T4 [Mass/Vol] 1.69 ng/dL 0.76-1.46 [facility] Globulin (S) [Mass/Vol] 4.1 g/dL 2.2-4.2 [facility] Urea nitrogen/Creatinine [Mass ratio] 16.1 mg/mg 10-20 [facility] No Panel InformationOrdered By: Matthew Bustos on 12-08-2022 Estimated GFR (MDRD) Amer 81 mL/min >60 [facility] Comment on above: GFR Calc Estimated GFR (MDRD) Non-Af Amer 67 mL/min >60 [facility] Comment on above: Non- GFR Calc Thyroid Stimulating Hormone (TSH) 0.54 uIU/mL 0.358-3.74 [facility] Serum or plasma albumin chi urement (mass/volume)Ordered By: Matthew Bustos on 12-08-2022 Albumin [Mass/Vol] 4.1 g/dL 3.2-5.0 [facility] Serum or plasma albumin/glob ulin mass ratioOrdered By: Matthew Bustos on 12-08-2022 Albumin/Globulin [Mass ratio] 1.0 {ratio} 0.9-2.4 [facility] Serum or plasma calcium chi urement (mass/volume)Ordered By: Matthew Bustos on 12-08-2022 Calcium [Mass/Vol] 9.5 mg/dL 8.5-10.1 [facility] Serum or plasma creatinine m easurement (mass/volume)Ordered By: Mtathew Bustos on 12-08-2022 Creatinine [Mass/Vol] 1.18 mg/dL 0.70-1.30 [facility] Comment on above: The validity of the calculated GFR & GFRAA in patients over 70 years has not been determined. Clinical correlation is essential. Serum or plasma urea nitroge n measurement (mass/volume)Ordered By: Matthew Bustos on 12-08-2022 Urea nitrogen [Mass/Vol] 19 mg/dL 7-18 [facility] T4 Free Directon 12-08-2022 T4 FREE DIRECT 1.69 ng/dL High 0.76-1.46 [facility] Comment on above: Performed By: #### M [id number] #### [facility] [place] [address], [address] Thin prep Papanicolaou smear with manual screeningOrdered By: Matthew Bustos on 12-08-2022 Thin prep Papanicolaou smear with manual screening 18 U/L 15-37 [facility] Thin prep Papanicolaou smear with manual screening 5 5-15 [facility] Thyroid Stim Hormone (TSH)on 12-08-2022 TSH 0.54 uIU/mL Normal 0.358-3.74 [facility] Comment on above: Performed By: #### L [id number], [id number], L506.0400 #### [facility] [address] [place], [address] Basophil percentageon 2021 Bilirubin [Mass/Vol] 0.80 mg/dL 0.20-1.00 [facility] Work Phone: Comment on above: For patients on eltr ombopag therapy, use of Dimension [place] TBIL is not recommended. Chloride [Moles/Vol] 102 mmol/L 98-107 [facility] Work Phone: Cholesterol [Mass/Vol] 112 mg/dL <200 [facility] Work Phone: Comment on above: <200 mg/dL Desirable 200-240 mg/dL Borderline >240 mg/dL High Risk Glucose [Mass/Vol] 192 mg/dL 74-106 [facility] Work Phone: Comment on above: Fasting Glucose resu lt greater than or equal to 126 mg/dL suggests DIABETES MELLITUS per A.D.A. criteria. Potassium [Moles/Vol] 3.5 mmol/L 3.5-5.1 [facility] Work Phone: Protein [Mass/Vol] 7.9 g/dL 6.4-8.2 [facility] Work Phone: Sodium [Moles/Vol] 136 mmol/L 136-145 [facility] Work Phone: [phone] Triglyceride [Mass/Vol] 144 mg/dL <199 [facility] Work Phone: Comment on above: The drugs N-Acetylcy steine and Metamizole may falsely depress this assay.Serum Triglycerides Reference Interval Normal <150 mg/dL Borderline high 150 - 199 mg/dL High 200 - 499 mg/dL Very High > or = 500 mg/dL Laboratory - Chemistry and C hemistry - challengeon 12-03-2021 ALP [Catalytic activity/Vol] 117 U/L 45-117 [facility] Work Phone: [phone] ALT [Catalytic activity/Vol] 29 U/L 16-61 [facility] Work Phone: [phone] CO2 [Moles/Vol] 27.0 mmol/L 21.0-32.0 [facility] Work Phone: [phone] Globulin (S) [Mass/Vol] 4.0 g/dL 2.2-4.2 [facility] Work Phone: [phone] Urea nitrogen/Creatinine [Mass ratio] 19.8 mg/mg 10-20 [facility] Work Phone: [phone] Panel Informationon 12-03 Estimated GFR (MDRD) Amer 87 mL/min >60 [facility] Work Phone: Comment on above: GFR Calc Estimated GFR (MDRD) Non-Af Amer 72 mL/min >60 [facility] Work Phone: [phone] Comment on above: Non- GFR Calc Serum or plasma albumin chi urement (mass/volume)on 12-03-2021 Albumin [Mass/Vol] 3.9 g/dL 3.2-5.0 [facility] Work Phone: [phone] Serum or plasma albumin/glob ulin mass ratioon 12-03-2021 Albumin/Globulin [Mass ratio] 1.0 {ratio} 0.9-2.4 [facility] Work Phone: [phone] Serum or plasma calcium chi urement (mass/volume)on 12-03-2021 Calcium [Mass/Vol] 9.5 mg/dL 8.5-10.1 [facility] Work Phone: [phone] Serum or plasma cholesterol in HDL measurement (mass/volume)on 12-03-2021 Cholesterol in HDL [Mass/Vol] 41 mg/dL >40 [facility] Work Phone: [phone] Comment on above: The drugs N-Acetylcy steine and Metamizole may falsely depress this assay. Reference Range HDL <40 mg/dL Low HDL Cholesterol HDL >or= 60 mg/dL High HDL Cholesterol Serum or plasma cholesterol in VLDL measurement (mass/volume)on 12-03-2021 Cholesterol in VLDL [Mass/Vol] 29 mg/dL 5-40 [facility] Work Phone: Serum or plasma creatinine m easurement (mass/volume)on 12-03-2021 Creatinine [Mass/Vol] 1.11 mg/dL 0.70-1.30 [facility] Work Phone: Comment on above: The validity of the calculated GFR & GFRAA in patients over 70 years has not been determined. Clinical correlation is essential. Serum or plasma low density lipoprotein (LDL) cholesterol measurement (mass/volume)on 12-03-2021 Cholesterol in LDL [Mass/Vol] 42 mg/dL 0-130 [facility] Work Phone: Serum or plasma urea nitroge n measurement (mass/volume)on 12-03-2021 Urea nitrogen [Mass/Vol] 22 mg/dL 7-18 [facility] Work Phone: Thin prep Papanicolaou smear with manual screeningon 12-03-2021 Thin prep Papanicolaou smear with manual screening 21 U/L 15-37 [facility] Work Phone: Thin prep Papanicolaou smear with manual screening 7 5-15 [facility] Work Phone: Basophil percentageon 2021 Chloride [Moles/Vol] 100 mmol/L 98-107 [facility] Work Phone: Cholesterol [Mass/Vol] 117 mg/dL <200 [facility] Work Phone: Comment on above: <200 mg/dL Desirable 200-240 mg/dL Borderline >240 mg/dL High Risk Glucose [Mass/Vol] 186 mg/dL 74-106 [facility] Work Phone: Comment on above: Fasting Glucose resu lt greater than or equal to 126 mg/dL suggests DIABETES MELLITUS per A.D.A. criteria. Potassium [Moles/Vol] 3.6 mmol/L 3.5-5.1 [facility] Work Phone: Sodium [Moles/Vol] 138 mmol/L 136-145 [facility] Work Phone: Triglyceride [Mass/Vol] 216 mg/dL [facility] Work Phone: Comment on above: The drugs N-Acetylcy steine and Metamizole may falsely depress this assay.Serum Triglycerides Reference Interval Normal <150 mg/dL Borderline high 150 - 199 mg/dL High 200 - 499 mg/dL Very High > or = 500 mg/dL Laboratory - Chemistry and C hemistry - challengeon 05-28-2021 CO2 [Moles/Vol] 30.0 mmol/L 21.0-32.0 [facility] Work Phone: Urea nitrogen/Creatinine [Mass ratio] 14.7 mg/mg 10-20 [facility] Work Phone: No Panel Informationon 05-28 Estimated GFR (MDRD) Amer 83 mL/min >60 [facility] Work Phone: Comment on above: GFR Calc Estimated GFR (MDRD) Non-Af Amer 69 mL/min >60 [facility] Work Phone: Comment on above: Non- GFR Calc Thyroid Stimulating Hormone (TSH) 1.05 uIU/mL 0.358-3.74 [facility] Work Phone: [phone] Serum or plasma calcium chi urement (mass/volume)on 05-28-2021 Calcium [Mass/Vol] 9.9 mg/dL 8.5-10.1 [facility] Work Phone: [phone] Serum or plasma cholesterol in HDL measurement (mass/volume)on 05-28-2021 Cholesterol in HDL [Mass/Vol] 36 mg/dL [facility] Work Phone: Comment on above: The drugs N-Acetylcy steine and Metamizole may falsely depress this assay. Reference Range HDL <40 mg/dL Low HDL Cholesterol HDL >or= 60 mg/dL High HDL Cholesterol Serum or plasma cholesterol in VLDL measurement (mass/volume)on 05-28-2021 Cholesterol in VLDL [Mass/Vol] 43 mg/dL 5-40 [facility] Work Phone: Serum or plasma creatinine m easurement (mass/volume)on 05-28-2021 Creatinine [Mass/Vol] 1.16 mg/dL 0.70-1.30 [facility] Work Phone: Comment on above: The validity of the calculated GFR & GFRAA in patients over 70 years has not been determined. Clinical correlation is essential. Serum or plasma low density lipoprotein (LDL) cholesterol measurement (mass/volume)on 05-28-2021 Cholesterol in LDL [Mass/Vol] 38 mg/dL 0-130 [facility] Work Phone: Serum or plasma urea nitroge n measurement (mass/volume)on 05-28-2021 Urea nitrogen [Mass/Vol] 17 mg/dL 7-18 [facility] Work Phone: Thin prep Papanicolaou smear with manual screeningon 05-28-2021 Thin prep Papanicolaou smear with manual screening 8 5-15 [facility] Work Phone: Whole blood hemoglobin A1c/t otal hemoglobin ratio (mass fraction)on 05-28-2021 HbA1c (Bld) [Mass fraction] 9.2 % 3.8-5.6 [facility] Work Phone: Comment on above: Normal < 5.7 % Predi abetic 5.7 - 6.4 % Diabetic >or= 6.5 % Please note range changes. Provider Note - ED v2on 12-2 Provider Note - ED v2 Provider Note - ED v2: Chart Review: HISTORY OF PRESENTING ILLNESS SERJIO is a 59 year old Male and was seen by me at 07-May-2019 10:51 for a chief complaint of cough. Other complaints include: Presents for evaluation of URI. Symptoms including cough, congestion, and sore throat have been present for several weeks and refractory to OTC meds. No fever, chills, nausea, vomiting, abdominal pain, CP, or SOB. No exacerbating factors . Triage Information: Most recent Vital Sign Value Date PAST MEDICAL HISTORY ATTESTATION: I have reviewed and confirmed nurse's/medic's notes for patient's medications, allergies, medical history, and surgical history ALLERGIES/INTOLERANCES: No Known Allergies HEALTH HISTORY: No documented data. OUTPATIENT MEDICATIONS: Home Medications Review Status for Reconciliation: Complete Med Status: Patient Currently Takes Medications Drug Name: levothyroxine 200 mcg (0.2 mg) oral tablet Instructions: 1 tab(s) orally once a day Drug Name: glimepiride 4 mg oral tablet Instructions: 1 tab(s) orally once a day Drug Name: pioglitazone 45 mg oral tablet Instructions: 1 tab(s) orally once a day Drug Name: amLODIPine 5 mg oral tablet, disintegrating Instructions: null Drug Name: losartan-hydrochlorothia zide 100 mg-25 mg oral tablet Instructions: 1 tab(s) orally once a day Drug Name: metFORMIN 1000 mg oral tablet Instructions: 1 tab(s) orally 2 times a day SIGNIFICANT EVENTS: Past Surgical History Description:Back surgery, THYROIDECTOMY, T&A REVIEW OF SYSTEMS REVIEW OF SYSTEMS: Comments Review of Systems Constitutional: See HPI Eye: No recent visual problem. ENT: See HPI Respiratory: See history of present illness Cardiovascular: See history of present illness Genitourinary: No dysuria, No hematuria. Musculoskeletal: No decreased range of motion. Integumentary: No rash. Neurologic: Alert and oriented X4, No numbness, No tingling. All other systems are negative PHYSICAL EXAM CONSTITUTIONAL: Well appearing, well nourished, awake, alert, oriented to person, place, time/situation and in no apparent distress. HENMT: Airway patent, ears with clear tympanic membranes bilaterally. Nasal mucosa clear. Mouth with normal mucosa. Throat has no vesicles, no oropharyngeal exudates and uvula is midline. Face with no lymph node enlargement. EYES: Clear bilaterally, pupils equal, round and reactive to light. CARDIOVASCULAR: Normal rate, regular rhythm. RESPIRATORY: Breath sounds clear and equal bilaterally. MUSCULOSKELETAL: Spine appears normal, range of motion is not limited, no muscle or joint tenderness. NEUROLOGICAL: Alert and oriented, no focal deficits, no motor or sensory deficits. SKIN: Skin normal color for race, warm, dry and intact. No evidence of trauma. MEDICAL DECISION MAKING/ED COURSE MDM/ED COURSE: Exam consistent with upper respiratory infection. Prescriptions for amoxicillin and Medrol Dosepak. Patient's clinical presentation is otherwise unremarkable at this time. Patient is discharged with instructions to follow-up with primary care or seek emergency medical attention for worsening symptoms or any new concerns. CLINICAL IMPRESSION Diagnosis/Annotation: ED Dx Name:URI (upper respiratory infection) Code:J06.9 Dispostion: discharged Type: home ATTESTATION CRITICAL CARE TIME Is this a critically ill patient: no Electronic Signatures: Sergio Ch (PAC) (Signed 07-May-2019 10:59) Authored: Provider Note - ED v2 Last Updated: 07-May-2019 10:59 by Sergio Ch (PAC) [facility] Vital Signs Date Time Vital Sign Value Performing Clinician Faci lity 05-23-2023 13:27-0500 Body temperature 97.6 [degF] Dr. Matthew Bustos Work Phone: [phone] [place] [address] 05-23-2023 13:27-0500 Diastolic blood pressure 78 mm[Hg] Dr. Matthew Bustos Work Phone: [phone] [place] [address] 05-23-2023 13:27-0500 Heart rate 74 /min Dr. Matthew Bustos Work Phone: [phone] [address] 05-23-2023 13:27-0500 Respiratory rate 16 /min Dr. Matthew Bustos Work Phone: [phone] [place] [address] 05-23-2023 13:27-0500 SaO2% (BldA) [Mass fraction] 97 % Dr. Matthew Bustos Work Phone: [phone] [place] [address] 05-23-2023 13:27-0500 Systolic blood pressure 108 mm[Hg] Dr. Matthew Bustos Work Phone: [facility] 05-23-2023 11:22-0500 Body height 167.[address] Matthew Bustos Work Phone: [phone] [place] [address] 05-23-2023 11:22-0500 Body mass index (BMI) [Ratio] 31.8 kg/m2 Dr. Matthew Bustos Work Phone: [phone] [place] [address] 05-23-2023 11:22-0500 Body weight 89.[address] Matthew Bustos Work Phone: [phone] [address] 05-05-2023 09:46-0500 Body mass index (BMI) [Ratio] 30.4 kg/m2 Dr. Matthew Bustos Work Phone: [facility] 05-05-2023 09:46-0500 Body weight 85.[address] Matthew Bustos Work Phone: [facility] 05-05-2023 09:46-0500 Diastolic blood pressure 82 mm[Hg] Dr. Matthew Bustos Work Phone: [facility] 05-05-2023 09:46-0500 Respiratory rate 16 /min Dr. Matthew Bustos Work Phone: [facility] 05-05-2023 09:46-0500 Systolic blood pressure 128 mm[Hg] Dr. Matthew Bustos Work Phone: [facility] 01-31-2023 10:25-0400 Body height 167.[address] Matthew Bustos Work Phone: [facility] 01-31-2023 10:25-0400 Body mass index (BMI) [Ratio] 30.9 kg/m2 Dr. Matthew Bustos Work Phone: [facility] 01-31-2023 10:25-0400 Body temperature 96.2 [degF] Dr. Matthew Bustos Work Phone: [facility] 01-31-2023 10:25-0400 Body weight 87.[address] Matthew Bustos Work Phone: [facility] 01-31-2023 10:25-0400 Diastolic blood pressure 84 mm[Hg] Dr. Matthew Bustos Work Phone: [facility] 01-31-2023 10:25-0400 Heart rate 54 /min Dr. Matthew Bustos Work Phone: [facility] 01-31-2023 10:25-0400 Respiratory rate 16 /min Dr. Matthew Bustos Work Phone: [facility] 01-31-2023 10:25-0400 SaO2% (BldA) [Mass fraction] 97 % Dr. Matthew Bustos Work Phone: [facility] 01-31-2023 10:25-0400 Systolic blood pressure 138 mm[Hg] Dr. Matthew Bustos Work Phone: [facility] 01-23-2023 17:32-0400 Diastolic blood pressure 71 mm[Hg] Dr. Matthew Bustos Work Phone: [facility] 01-23-2023 17:32-0400 Heart rate 81 /min Dr. Matthew Bustos Work Phone: [facility] 01-23-2023 17:32-0400 Respiratory rate 16 /min Dr. Mattehw Bustos Work Phone: [facility] 01-23-2023 17:32-0400 SaO2% (BldA) [Mass fraction] 99 % Dr. Matthew Bustos Work Phone: [facility] 01-23-2023 17:32-0400 Systolic blood pressure 109 mm[Hg] Dr. Matthew Bustos Work Phone: [facility] 01-23-2023 14:18-0400 Body height 167.[address] Matthew Bustos Work Phone: [facility] 01-23-2023 14:18-0400 Body mass index (BMI) [Ratio] 31.9 kg/m2 Dr. Matthew Bustos Work Phone: [facility] 01-23-2023 14:18-0400 Body temperature 98 [degF] Dr. Matthew Bustos Work Phone: [facility] 01-23-2023 14:18-0400 Body weight 89.[address] Matthew Bustos Work Phone: [facility] 01-23-2023 13:38-0400 Body mass index (BMI) [Ratio] 30.8 kg/m2 Dr. Matthew Bustos Work Phone: [facility] 01-23-2023 13:38-0400 Body weight 86.[address] Matthew Bustos Work Phone: [facility] 01-23-2023 13:38-0400 Diastolic blood pressure 67 mm[Hg] Dr. Matthew Bustos Work Phone: [facility] 01-23-2023 13:38-0400 Heart rate 87 /min Dr. Matthew Bustos Work Phone: [facility] 01-23-2023 13:38-0400 Respiratory rate 16 /min Dr. Matthew Bustos Work Phone: [facility] 01-23-2023 13:38-0400 SaO2% (BldA) [Mass fraction] 96 % Dr. Matthew Bustos Work Phone: [facility] 01-23-2023 13:38-0400 Systolic blood pressure 97 mm[Hg] Dr. Matthew Bustos Work Phone: [facility] Encounters Encounter Date Encounter Type Care Provider Facility Start: 08-31-2023 End: 08-31-[address] Deepak Bustos Work Phone: [facility] Work Phone: Start: 08-31-2023 End: 08-31-[address] Deepak Bustos Work Phone: [facility] Start: 05-23-2023 End: 05-23-2023 ambulatory [facility] Facility:[facility] Start: 05-23-2023 Non-patient / Non-visit Dr. Matthew Bustos Work Phone: [facility] Start: 05-23-2023 End: 05-23-2023 Admission to same day surgery center Dr. Matthew Bustos Work Phone: [facility] Work Phone: Start: 05-23-2023 End: 05-23-[address] Matthew Bustos Work Phone: [facility] Work Phone: Start: 05-05-2023 End: 05-05-2023 ambulatory Zuri Greenberg Facility:[facility] Start: 05-05-2023 End: 05-05-[address] Matthew Bustos Work Phone: [facility] Work Phone: Start: 02-10-2023 End: 02-10-[address] Matthew Bustos Work Phone: [facility] Start: 02-10-2023 End: 02-10-2023 ambulatory Deepak Bustos Facility:[facility] Start: 01-31-2023 End: 01-31-2023 Emergency department patient visit Tong Bagley Facility:[facility] Start: 01-31-2023 End: 01-31-2023 Emergency department patient visit Dr. Matthew Bustos Work Phone: [facility] Work Phone: Start: 01-23-2023 End: 01-23-2023 Emergency department patient visit Cristian Hutchinson Facility:[facility] Start: 01-23-2023 End: 01-23-2023 ambulatory Deepak Bustos Facility:[facility] Start: 01-23-2023 End: 01-23-2023 Emergency department patient visit Dr. Matthew Bustos Work Phone: [facility] Work Phone: Start: 01-23-2023 End: 01-23-[address] Matthew Bustos Work Phone: [facility] Work Phone: Start: 12-08-2022 End: 12-08-2022 ambulatory Deepak Bustos [facility] Work Phone: Start: 12-08-2022 End: 12-08-2022 Patient encounter procedure [facility] Start: 12-03-2021 End: 12-03-2021 Patient encounter procedure [facility] Start: 09-07-2021 End: 09-07-2021 Patient encounter procedure [facility] Start: 05-28-2021 End: 05-28-2021 Patient encounter procedure [facility] Procedures Date Procedure Procedure Detail Performing Clinician Start: 05-23-[address] Manny Bustos Work Phone: Start: 01-31-[address] Matthew Bustos Work Phone: Start: 01-31-2023 CT of abdomen and pe lvis without contrast Dr. Matthew Bustos Work Phone: Start: 01-23-[address] Matthew Bustos Work Phone: Start: 09-07-2021 Ultrasonography of t hyroid and parathyroid Plan of Treatment Date Care Activity Detail Author Start: 05-23-2023 Colonoscopy w/biopsy single/multiple COLONOSCOPY AND BIOPSY [facility] Start: 05-23-2023 Egd transoral biopsy single/multiple EGD BIOPSY SINGLE/MULTIPLE [facility] Start: 05-23-2023 Patient discharge [facility] Start: 01-31-2023 Enteric precautions [facility] Colonoscopy [facility] Patient Education [facility] Work Phone: Patient referral [facility] Work Phone: [facility] Payers Date Payer Category Payer Self-pay [id number] 2022 Unknown [id number] 2011 Unknown [id number] Unknown [id number] Unknown [id number] 2.16.8 [id number] Unknown [id number] 2.16.8 [id number] Unknown [id number] 2.16.8 [id number] Unknown [id number] 2.16.8 [id number] Unknown [id number] 2.16.8 [id number] Unknown [id number] 2.16.8 [id number] Unknown [id number] 2.16.8 [id number] Unknown [id number] 2.16.8 [id number] Unknown [id number] 2.16.8 [id number] Social History Date Type Detail Facility Start: 04-17-2018 End: 05-19-2023 Tobacco smoking status NHIS Unknown if ever smoked [facility] Start: 1960 Sex Assigned At Male [facility] Goals Date Patient Goal Desired Activity /State Mental Status Date Assessment Result Facility 05-23-2023 Cognitive function Voice/Name [facility] Work Phone: Clinical Notes 01-23-2023 to 05-23-2023 Note Date & Type Note Facility 05-23-2023 Procedure note [facility] 05-23-2023 Procedure note [facility] 05-23-2023 Procedure note [facility] 05-23-2023 Procedure note [facility] 05-23-2023 History and physical note Note Date/Time May 23, 2023 10:27am [facility] System Medical Records Department [address] [place] [address] History & Physical Exam 05/23/23 1027 MR#: [id number] Acct: [id number] Name: SERJIO RODRIGUEZ MICKEY Rep #:[id number] : 1960 63 From: Zuri Greenberg MD PCP: Dr. Matthew Bustos MD Status: [facility] Location: [place] [address] History and Physical Date of Admission: 05/23/23 Date of Service: 05/05/23 MR#: [id number] Acct: [id number] Name: SERJIO RODRIGUEZ MICKEY Rep #: [id number] : 1960 Provider: Dr. Zuri Greenberg MD Age/Sex: 63/M Location: [facility] Status: Signed Intake Vital Signs 01/31/2310:25 05/05/2309:46 Height 5 ft 6 in 5 ft 6 in Weight: 189 lb BMI 30.4 BP 128/82 H Blood Pressure Location Rt brachial Position Sitting Respiration 16 Intake Visit Reasons: On going diarrhea Chief Complaint: diarrhea Associate Director Financial Aid Required: No Is patient in pain?: No Allergies No Known Allergies Allergy (Verified 05/05/23 09:47) Medications glimepiride 4 mg tablet 4 mg PO QAM 02/27/18 [History Confirmed 05/05/23] losartan 100 mg-hydrochlorothiazide 25 mg tablet 1 tab PO DAILY 02/27/18 [History Confirmed 05/05/23] metformin 1,000 mg tablet 1,000 mg PO DAILY 02/27/18 [History Confirmed 05/05/23] dulaglutide 4.5 mg/0.5 mL subcutaneous pen injector (Trulicity) 4.5 mg subcut .qsunday 01/23/23 [History Confirmed 05/05/23] levothyroxine 175 mcg tablet 175 mcg PO DAILY 01/23/23 [History Confirmed 05/05/23] amlodipine 10 mg tablet mg PO 05/05/23 [History Confirmed 05/05/23] atorvastatin 40 mg tablet mg PO 05/05/23 [History Confirmed 05/05/23] ertugliflozin 15 mg tablet (Steglatro) mg PO 05/05/23 [History Confirmed 05/05/23] [facility] Medical History (Updated 05/05/23 @ 10:18 by Erika Cuellar) Diabetes Diarrhea HTN (hypertension) Weight loss Surgical History H/O thyroidectomy History of back surgery S/P colonoscopy S/P LASIK surgery S/P tonsillectomy Family History (Updated 05/05/23 @ 09:46 by Erika Cuellar) Mother Breast cancer Diabetes HypertensionFather Hypertension Colon cancer Social History Smoking Status: Never smoker alcohol intake: current alcohol intake frequency: a few times a week HPI HPI HPI: 63-year-old male presents for weight loss and episodes of diarrhea. Patient states that he went to the ER twice due to severe diarrhea. Patient states thathe has not had the diarrhea for about 3 weeks. Patient now states has bowel movements about every 3 to 4 days. Patient did have stool studies at that time in January when he had the diarrhea which were negative along with C. difficile which was negative. Patient states he has a decreased appetite denies any nausea or vomiting and denies any current abdominal pain now and states he did have abdominal pain when he had the diarrhea. Patient states he is also lost about 20-25 pounds in the last 6 to 8 months- unintentional. Patient's dad history of prostate cancer with radiation. Patient had CT abdomen pelvis at time of ER visit in January which did not show anything really acutely other than constipation. Patient's last colonoscopy was in [address] Chapa colon wasnormal had a biopsy of the terminal ileum which was also normal. ROS General General: Yes weight change; No appetite, fatigue, colon cancer or breast cancer HEENT HEENT: Yes eye injury and eye surgery; No difficulty swallowing, swollen glands or hoarseness Endo Endocrine: Yes thyroid disease and thyroid cancer; No diabetes mellitus, Hair loss, heat intolerance or cold intolerance Skin Skin: No rash or changing moles Musc Musculoskeletal: Yes back problems; No arthritis, rheumatoid arthritis, gout or joint pain Cardio Cardiovascular: Yes high blood pressure; No murmur, pacemaker, heart disease, atrial fibrillation, heart attack, heart stent, palpitations, shortness of breat with exertion or chest pain Psych Psychiatric: No depression, anxiety or hearing voices Resp Respiratory: No shortness of breath, No sleep apnea, No cough, No COPD, No asthma, No emphysema and No wheezing Gastro Gastrointestinal: Yes abdominal pain, No nausea or vomiting, Yes diarrhea, No constipation, No blood in stool, No acid reflux, No hemorrhoids, No ulcers, No gallbladder problem and No black,tarry stools [place] Hematologic: No blood thinners, No blood disorders, No bleeding, No anemia and No blood clots Neuro Neurologic: No numbness and No tingling Exam Const General: cooperative, healthy appearing, comfortable and no acute distress [facility] Head: normocephalic and atraumatic Neck Neck: supple Resp Effort & Inspection: normal respiratory effort Cardio Rate: regular rate GI Inspection: non-distended Palpation: soft, no hernias and nontender Skin General: no rashes or lesions noted Neuro General: CN's II-XI intact bilaterally Extrem General: normal to inspection Psych Mental Status: mental status grossly normal Attitude: cooperative Assessment and Plan Assessment and Plan (1) Weight loss: Status: Acute (2) Diarrhea: Status: Acute Orders: Orders Colonoscopy 05/05/23 R19.7 - Diarrhea, unspecified, R63.4 - Abnormal weight loss EGD 05/05/23 Plan Will plan for an EGD and colonoscopy due to the weight loss as well as chronic episodes of diarrhea. Plan for random biopsies at the time of colonoscopy. Patient is agreeable plan. I have discussed the above with the patient. I have offered the patient esophagogastroduodenoscopy and colonoscopy for evaluation. I have explained the risks/benefits of the procedure and described the procedure. I have discussed the risks with the patient, including but not limited to: infection, bleeding, perforation of the GI tract requiring emergency surgery, inability to complete the procedure, injury to any internal organs, complications of anesthesia, etc. - the patient understands and agrees to proceed. I have answered all the patient's questions to the patient's satisfaction and the patient has no further questions. The patient has been given instructions for the colon cleansing preparation. 2 day of clears, Dulcolax first day and then the MiraLAX Dulcolax split prep. Zuri Greenberg M.D. Pager: [phone] [facility] [address] [place] [address], [facility], [address] [place] [address] Office: [phone] Coding Level of Care Code Off vis,new,level 3 Diagnoses Weight loss R63.4 Diarrhea R19.7 05/06/23 1213 <Electronically signed by Zuri Greenberg MD> Date Zuri Greenberg MD 05/23/23 1027 <Electronically signed by Zuri Greenberg MD> Cosigner Signature (if applicable): CC: Dr. Matthew Bustos MD; Dr. Zuri Greenberg MD~ Signed ADDENDUM by Dr. Zuri Greenberg MD on 05/23/23 at 1059 Addendum I have examined the patient the following changes are noted: Patient denies any further episodes of diarrhea. Patient states he may have only lost about a pound since the appointment and been eating normally per him. 05/23/23 1059<Electronically signed by Zuri Greenberg MD> Cosigner Signature (if applicable): cc: Dr. Matthew Bustos MD; Dr. Zuri Greenberg MD ~* Signed [facility] Work Phone: 1(802) 945-898101-08-2024 [facility] System Medical Records Department [address] [place] [address] History Physical Exam 05/23/23 1027 MR#: [id number] Acct: [id number] Name: SERJIO RODRIGUEZ MICKEY Rep #: [id number] : 1960 63 From: Zuri Greenberg MD PCP: Dr. Matthew Bustos MD Status:[facility] Location: [place] [address] History and Physical Date of Admission: 05/23/23 Date of Service: 05/05/23 MR#: [id number] Acct: [id number] Name: SERJIO RODRIGUEZ MICKEY Rep #: [id number] : 1960 Provider: Dr. Zuri Greenberg MD Age/Sex: 63/M Location: [facility] Status: Signed Intake Vital Signs 01/31/2310:25 05/05/2309:46 Height 5 ft 6 in 5 ft 6 in Weight: 189 lb BMI 30.4 BP 128/82 H Blood Pressure Location Rt brachial Position Sitting Respiration 16 Intake Visit Reasons: On going diarrhea Chief Complaint: diarrhea Associate Director Financial Aid Required: No Is patient in pain?: No Allergies No Known Allergies Allergy (Verified 05/05/23 09:47) Medications glimepiride 4 mg tablet 4 mg PO QAM 02/27/18 [History Confirmed 05/05/23] losartan 100 mg-hydrochlorothiazide 25 mg tablet 1 tab PO DAILY 02/27/18 [History Confirmed 05/05/23] metformin 1,000 mg tablet 1,000 mg PO DAILY 02/27/18 [History Confirmed 05/05/23] dulaglutide 4.5 mg/0.5 mL subcutaneous pen injector (Trulicity) 4.5 mg subcut .qsunday 01/23/23 [History Confirmed 05/05/23] levothyroxine 175 mcg tablet 175 mcg PO DAILY 01/23/23 [History Confirmed 05/05/23] amlodipine 10 mg tablet mg PO 05/05/23 [History Confirmed 05/05/23] atorvastatin 40 mg tablet mg PO 05/05/23 [History Confirmed 05/05/23] ertugliflozin 15 mg tablet (Steglatro) mg PO 05/05/23 [History Confirmed 05/05/23] PFSH Medical History (Updated 05/05/23 @ 10:18 by Erika Cuellar) Diabetes Diarrhea HTN (hypertension) Weight loss Surgical History H/O thyroidectomy History of back surgery S/P colonoscopy S/P LASIK surgery S/P tonsillectomy Family History (Updated 05/05/23 @ 09:46 by Erika Cuellar) Mother Breast cancer Diabetes HypertensionFather Hypertension Colon cancer Social History Smoking Status: Never smoker alcohol intake: current alcohol intake frequency: a few times a week HPI HPI HPI: 63-year-old male presents for weight loss and episodes of diarrhea. Patient states that he went to the ER twice due to severe diarrhea. Patient states that he has not had the diarrhea for about 3 weeks. Patient now states has bowel movements about every 3 to 4 days. Patient did have stool studies at that time in January when he had the diarrhea which were negative along with C. difficile which was negative. Patient states he has a decreased appetite denies any nausea or vomiting and denies any current abdominal pain now and states he did have abdominal pain when he had the diarrhea. Patient states he is also lost about 20-25 pounds in the last 6 to 8 months- unintentional. Patient's dad history of prostate cancer with radiation. Patient had CT abdomen pelvis at time of ER visit in January which did not show anything really acutely other than constipation. Patient's last colonoscopy was in [address] Chapa colon was normal had a biopsy of the terminal ileum which was also normal. ROS General General: Yes weight change; No appetite, fatigue, colon cancer or breast cancer HEENT HEENT: Yes eye injury and eye surgery; No difficulty swallowing, swollen glands or hoarseness Endo Endocrine: Yes thyroid disease and thyroid cancer; No diabetes mellitus, Hair loss, heat intolerance or cold intolerance Skin Skin: No rash or changing moles Musc Musculoskeletal: Yes back problems; No arthritis, rheumatoid arthritis, gout or joint pain Cardio Cardiovascular: Yes high blood pressure; No murmur, pacemaker, heart disease, atrial fibrillation, heart attack, heart stent, palpitations, shortness of breat with exertion or chest pain Psych Psychiatric: No depression, anxiety or hearing voices Resp Respiratory: No shortness of breath, No sleep apnea, No cough, No COPD, No asthma, No emphysema and No wheezing Gastro Gastrointestinal: Yes abdominal pain, No nausea or vomiting, Yes diarrhea, No constipation, No blood in stool, No acid reflux, No hemorrhoids, No ulcers, No gallbladder problem and No black,tarry stools [place] Hematologic: No blood thinners, No blood disorders, No bleeding, No anemia and No blood clots Neuro Neurologic: No numbness and No tingling Exam Const General: cooperative, healthy appearing, comfortable and no acute distress [facility] Head: normocephalic and atraumatic Neck (more content not included)...[facility]09-[facility]-2023 Discharge summary Author Tong Bagley [facility] January 31, 2023 3:26pm Note Date/Time January 31, 2023 11:06am [facility] Medical Records Department [address] [place] [address] Emergency Department Summary 01/31/23 MR#: [id number] Acct: [id number] Name: SERJIO RODRIGUEZ MICKEY Rep #:[id number] : 1960 62 From: Tong Stanley PCP: Dr. Matthew Bustos MD Status: REG ER Location: ED HPI HPI - GI History of Present Illness Chief Complaint: Abd Pain Informant: patient and spouse/S.O. Narrative Narrative: Presents to ED persistent diarrhea for the past 2 weeks. Yesterday increasing left-sided abdominal pain. No fevers or chills. No recent antibiotics. Reports had vomiting and diarrhea starting 2 weeks ago was seen 8 days ago in the ED. Reports laboratory studies along with testing for C. difficile returnednegative. Intermittent vomiting last time was yesterday no hematemesis. Deniesbloody stools. States having persistent diarrhea last time 5 AM this morning. No abdominal surgeries. Colonoscopy 8 years ago. No sick contacts. Spouse does not have symptoms. Hypertension diabetes history on thyroid medication secondary to thyroidectomy in the past. Prior similar symptoms: Yes PFSH PFSH Medical History Diabetes HTN (hypertension) Home Medications glimepiride 4 mg tablet 4 mg PO QAM 02/27/18 [History Last Taken Unknown] losartan 100 mg-hydrochlorothiazide 25 mg tablet 1 tab PO DAILY 02/27/18 [History Last Taken Unknown] metformin 1,000 mg tablet 1,000 mg PO DAILY 02/27/18 [History Last Taken Unknown] dulaglutide 4.5 mg/0.5 mL subcutaneous pen injector (Trulicity) 4.5 mg subcut .qsunday 01/23/23 [History Last Taken Unknown] levothyroxine 175 mcg tablet 175 mcg PO DAILY 01/23/23 [History Last Taken Unknown] ondansetron 4 mg disintegrating tablet 4 mg PO Q8H PRN nausea and vomiting 3 days #7 tabs 01/23/23 [Rx Last Taken Unknown] potassium chloride 20 mEq tablet,extended release(part/cryst) 20 meq PO BID 10 days #20 tabs 01/23/23 [Rx Last Taken Unknown] Allergy/AdvReac Type Severity Reaction Status Date / Time No Known Allergies Allergy Verified 01/31/23 10:25 Family History Mother Breast cancer Diabetes Hypertension Father Hypertension Surgical History H/O thyroidectomy History of back surgery S/P colonoscopy S/P LASIK surgery S/P tonsillectomy Social History Smoking Status: Never smoker alcohol intake: current alcohol intake frequency: a few times a week ROS ROS ED Constitutional Constitutional ED: Denies chills, fever(s) or sweats Eyes Eyes: Denies change in vision ENT ENT ED: Denies dysphagia or sore throat Cardiovascular Cardiovascular: Denies chest pain, leg edema, palpitations or racing heartbeat Respiratory/Chest Respiratory/Chest: Denies cough, dyspnea or dyspnea on exertion Gastrointestinal Gastrointestinal: Reports abdominal pain and diarrhea; Denies nausea or vomiting Genitourinary Genitourinary ED: Denies dysuria, hematuria or urinary frequency Musculoskeletal Musculoskeletal: Denies back pain, extremity pain or neck pain Integumentary Denies rash or wounds Neurologic Neurologic: Denies headache(s), paresthesias or weakness EXAM Physical Exam Const Vital Signs: 01/31/23 10:25 Temperature 96.2 F L Temperature Source Temporal Pulse Rate 54 L Respiratory Rate 16 Blood Pressure 138/84 H Blood Pressure Mean 102 Pulse Ox 97 Oxygen Delivery Method Room Air Positive well nourished and well developed General Appearance ED: well developed and NAD HEENT Reports moist mucous membranes normocephalic and atraumatic Eyes PERRL, EOMs intact bilaterally and conjunctivae normal General Eye ED: Yes normal appearance of both eyes Neck no lymphadenopathy and supple General: Negative for tenderness Chest Wall Chest: Negative for tenderness Resp normal respiratory effort and normal air movement Effort and Inspection: symmetric chest movement; Negative for respiratory distress Cardio regular rate, regular rhythm and no murmurs Peripheral Pulses: pulses 2+ throughout GI normal to inspection, nondistended, normoactive bowel sounds GI Narrative: Right tenderness left lower quadrant there is no guarding or rebound. Palpation: Negative for guarding or rebound tenderness present Back/Spine no CVA tenderness and no thoracic nor lumbar tenderness Extremity normal to inspection General Extremety ED: Negative for edema or tenderness General Extremity: Negative for edema Neuro oriented x3 and no sensory deficits noted Sensorium / Orientation: awake and alert Skin no rashes or lesions noted and no wounds MDM MDM MDM Narrative Medical decision making narrative: Interventions / MDM: Differential diagnosis: Abdominal pain, diarrhea Diagnosis considered but do not suspect: C. difficile, bacterial infection, however stool studies are negative. Colitis however CT negative. My EKG interpretation: N/A Imaging independently reviewed and interpreted by myself: CT abdomen pelvis:No acute process also read by radiology. External documents reviewed: ED visit from 8 days ago C. difficile toxin antigennegative. Laboratory work White count normal potassium 2.8. Test considered but not ordered:N/A ED course: Patient nonsurgical abdomen persistent diarrhea however worsening left lower quadrant pain. Laboratory studies recheck fluids given, CT scan ordered. He declines any pain medications. After evaluation records noted C. difficile was obtained and no stool cultures. Will reorder stool for recheck cultures and C. difficile. Has no risk factors with any recent antibiotics. 1525: Patient was monitored elected to wait for stool results as lab states it was pending. Results repeat C. difficile negative stool pathogens also negative. Has been tolerating oral intake. Encourage continue oral fluids for hydration. He has Zofran at home. He will follow-up with his PCP. All questions were answered. Re-evaluation: stable Disposition discussed with patient/family/significant other: Patient and significant other Case discussed with consulting clinician: N/A This note was generated with [employer]-Qi dictation software. It may contain incorrectwords, spelling, and punctuation that were not noted in checking the note beforesigning. Lab Data Attestation: I reviewed the patient's lab results. Labs: Laboratory Results - last 24 hr 01/31/23 10:40 WBC 14.6 H RBC 4.66 Hgb 15.6 Hct 45.4 MCV 97.4 H MCH 33.5 H MCHC 34.4 RDW Std Deviation 46.4 H RDW Coeff of Jorge 13.0 Plt Count 326 MPV 9.2 Immature Gran % (Auto) 0.300 Neut % (Auto) 83.3 H Lymph % (Auto) 8.4 L Shelby % (Auto) 6.5 Eos % (Auto) 1.0 Baso % (Auto) 0.5 Absolute Neuts (auto) 12.2 H Absolute Lymphs (auto) 1.23 Nucleated RBC % 0 Sodium 139 Potassium 3.2 L Chloride 106 Carbon Dioxide 25.0 Anion Gap 8 BUN 11 Creatinine 1.18 Estim Creat Clear Calc 60.08 Est GFR (MDRD) Af Amer 81 Est GFR (MDRD) Non-Af 67 BUN/Creatinine Ratio 9.3 L Glucose 151 H Calcium 8.9 Total Bilirubin 0.90 AST 10 L ALT 16 Alkaline Phosphatase 117 Total Protein 7.8 Albumin 3.4 Globulin 4.4 H Albumin/Globulin Ratio 0.8 L Lipase 30 Radiography Diagnostic Testing: Clinical Impression(s) from Imaging Studies Abdomen/Pelvis CT 01/31/23 10:50 IMPRESSION: Atrophy of the pancreas. Moderate amount of fecal material is seen in the colon. Calcification of the vas deferens. Electronically Signed: Gallo Da Silva MD at 12:17 EDT , Discharge Plan Triage Chief Complaint: Abd Pain ED Provider: Tong Bagley Dx/Rx/DC Orders Clinical Impression: Diarrhea, Abdominal pain, Hypokalemia Instructions: Abdominal Pain, ED Diarrhea, Unknown Cause Prescriptions: No Action losartan-hydrochlorothiazide 100-25 mg tablet 1 tab PO DAILY glimepiride 4 mg tablet 4 mg PO QAM metformin 1,000 mg tablet 1,000 mg PO DAILY levothyroxine 175 mcg tablet 175 mcg PO DAILY Trulicity 4.5 mg/0.5 mL pen injector 4.5 mg SUBCUT .qsunday potassium chloride 20 mEq tablet,ER particles/crystals 20 meq PO BID 10 Days Qty: 20 0RF ondansetron 4 mg tablet,disintegrating 4 mg PO Q8H PRN (Reason: nausea and vomiting) 3 Days Qty: 7 0RF Primary Care Provider: Matthew Bustos Referrals: Matthew Bustos MD [Primary Care Provider] - 3-5 Days if not improving Activity Restrictions/Additional Instructions: Potassium 3.2 today. Normal kidney function today. CT scan abdomen pelvis was negative. Stool studies again C. difficile is negative. Stool pathogens also returned negative. Continue oral fluids for hydration. Use your nausea medicine as needed. Follow-up with your doctor. Return if any worsening symptoms. Disposition Disposition: Home, Self Care What to do if you have Problems For any increased pain, shortness of breath, bleeding, nausea or vomiting, chestpain, or any unexpected problems, contact your Primary Care Provider. Call [facility] ([phone]) or report to the closest Emergency Room. Call 911 if necessary. 01/31/23 1526 <Electronically signed by Tong Stanley> Cosigner Signature (if applicable): CC: Dr. Matthew Bustos MD ~ Signed [facility] Work Phone: 1(573) 590-904109-18-2023 Hospital Discharge instructions Additional Instructions Potassium 3.2 today. Normal kidney function today. CT scan abdomen pelvis was negative. Stool studies again C. difficile is negative. Stool pathogens also returned negative. Continue oral fluids for hydration. Use your nausea medicine as needed. Follow-up with your doctor. Return if any worsening symptoms.[facility] Work Phone: 1(307) 297-901109-10-2023 Discharge summary Author Cristian Hutchinson [facility] January 23, 2023 5:53pm Note Date/Time January 23, 2023 3:22pm [facility] Medical Records Department [address] [place] [address] Emergency Department Summary 01/23/23 MR#: [id number] Acct: [id number] Name: SERJIO RODRIGUEZ MICKEY Rep #:[id number] : 1960 62 From: Cristian Hutchinson MD PCP: Dr. Matthew Bustos MD Status: REG ER Location: ED HPI HPI - GI History of Present Illness Chief Complaint: Nausea/Vomiting/Diarrhea Detail of Chief Complaint: For approximately 1 week. Informant: patient and spouse/S.O. Abdominal Pain/Flank Pain Onset: Days Context: Gradual Onset Timing: Continuous Nausea/Vomiting/Emesis GI Symptom: Positive for Nausea and Vomiting Onset: Days Severity: Mild Diarrhea/Melena/Hematochezia GI Symptom: Positive for Diarrhea; Negative for Melena or Hematochezia Onset: Days Stool Quality: Positive for Watery Severity: Moderate Associated Symptoms Associated Symptoms: Negative for Dysuria, Frequency, Hematuria or Urgency Narrative Narrative: 62-year-old male history of hypertension and diabetes. Patient states he had nausea, vomiting diarrhea since Tuesday. Its been basically a week. States thrown up several times a day. No hematemesis. No melena. He is having 5-10 episodes of diarrhea a day. No recent antibiotic. No recent surgery nor hospitalization. No prior history. No one else at home is ill. He denies any fever. He is really not having any abdominal pain. Prior similar symptoms: No Recent Illness/Hospitalization: No PFSH PFSH Medical History (Updated 01/23/23 @ 17:[address] Cristian Hutchinson MD) Diabetes HTN (hypertension) Home Medications glimepiride 4 mg tablet 4 mg PO QAM 02/27/18 [History Last Taken Unknown] losartan 100 mg-hydrochlorothiazide 25 mg tablet 1 tab PO DAILY 02/27/18 [History Last Taken Unknown] metformin 1,000 mg tablet 1,000 mg PO DAILY 02/27/18 [History Last Taken Unknown] dulaglutide 4.5 mg/0.5 mL subcutaneous pen injector (Trulicity) 4.5 mg subcut .qsunday 01/23/23 [History Last Taken Unknown] levothyroxine 175 mcg tablet 175 mcg PO DAILY 01/23/23 [History Last Taken Unknown] ondansetron 4 mg disintegrating tablet 4 mg PO Q8H PRN nausea and vomiting 3 days #7 tabs 01/23/23 [Rx Last Taken Unknown] potassium chloride 20 mEq tablet,extended release(part/cryst) 20 meq PO BID 10 days #20 tabs 01/23/23 [Rx Last Taken Unknown] Allergy/AdvReac Type Severity Reaction Status Date / Time No Known Allergies Allergy Verified 01/23/23 14:19 Family History Mother Breast cancer Diabetes Hypertension Father Hypertension Surgical History (Updated 01/23/23 @ 15:39 by Julio Herrera) H/O thyroidectomy History of back surgery S/P colonoscopy S/P LASIK surgery S/P tonsillectomy Social History Smoking Status: Never smoker alcohol intake: current alcohol intake frequency: a few times a week ROS ROS ED ROS Narrative Nausea, vomiting and diarrhea. Review of Systems ROS Unobtainable: Denies due to encephalopathy Constitutional Constitutional ED: Denies chills or fever(s) ENT ENT ED: Denies ear pain Cardiovascular Cardiovascular: Denies chest pain Respiratory/Chest Respiratory/Chest: Denies cough or dyspnea Gastrointestinal Gastrointestinal: Reports diarrhea, nausea and vomiting; Denies abdominal pain, constipation or melena Genitourinary Genitourinary ED: Denies dysuria or hematuria Musculoskeletal Musculoskeletal: Denies arthralgias Integumentary Denies abscess Neurologic Neurologic: Denies headache(s) Psychiatric Psychiatric: Denies anxiety Endocrine Endocrinology: Denies polydipsia Hematologic/Lymphatic Hematologic/Lymphatic: Denies easy bleeding Allergic/Immunologic Allergic/Immunologic ED: Denies mouth swelling or tongue swelling EXAM Physical Exam Narrative Exam Narrative: 62-year-old male vital signs stable afebrile his blood pressure is low at 97/76 consistent with dehydration. HEENT exam unremarkable. No facial droop. Moist mucous membranes. Neck nontender no lymphadenopathy. Lungs clear to auscultation bilaterally. Heart regular rhythm rate about 95 no murmur. Abdomen soft, nontender, nondistended, normal bowel sounds without peritoneal signs. No localizing tenderness. Back nontender. Moving all 4 extremities. He is awake and alert. Normal motor strength. Answering questions and following commands. Const Vital Signs: 01/23/23 14:18 01/23/23 17:32 Temperature 98 F Temperature Source Temporal Pulse Rate 95 81 Respiratory Rate 16 16 Blood Pressure 97/76 109/71 Blood Pressure Mean 83 83 Pulse Ox 100 99 Oxygen Delivery Method Room Air Room Air Positive well nourished and well developed; Negative for obese, cachectic, contractures or unkempt General Appearance ED: well developed and NAD; Negative for unkempt, cachectic, contractures or pallor Nutritional Appearance: Negative for cachectic or obese HEENT Reports moist mucous membranes normocephalic and atraumatic; Negative for trauma or tenderness Eyes PERRL and EOMs intact bilaterally General Eye ED: Negative for pale conjunctiva, scleral icterus or other Neck no lymphadenopathy, supple and no JVD General: Negative for tenderness Carotids: Negative for other Lymph Lymphatic: Negative for other Resp normal respiratory effort and clear to auscultation bilaterally Effort and Inspection: Negative for respiratory distress or retractions Auscultation: Negative for rales, rhonchi or wheezes Cardio regular rate, regular rhythm, S1 normal heart sound, S2 normal heart sound and no murmurs Rate: Negative for bradycardia or tachycardic Rhythm: Negative for abnormal rhythm GI non-tender, non-distended and no masses Inspection: Negative for abdominal distention Auscultation: normoactive bowel sounds Palpation: soft; Negative for tender or guarding Back/Spine no CVA tenderness General Back: Negative for CVA tenderness Cervical Spine: Negative for cervical spine tenderness Thoracic Spine / Upper Back: Negative for thoracic spinal tenderness Lumbar Spine / Lower Back: Negative for lumbar spinal tenderness Coccyx: Negative for other Extremity full ROM General Extremety ED: Negative for edema or tenderness General Extremity: Negative for edema Neuro CN's II-XII intact bilaterally, moves all extremities and no sensory deficits noted Sensorium / Orientation: alert, oriented to person, oriented to place and oriented to time; Negative for orientation impaired, confused or lethargic Motor Exam: strength 5/5 throughout Psych mental status grossly normal and thought process normal Appearance: Negative for unkempt Attitude: No agitated Mood & Affect: Negative for depressed, anxious or tearful Skin no wounds General Skin Exam: Negative for jaundice or pallor Lesions: no lesions Rashes: no rashes Trauma: Negative for abrasion Nails: Negative for discolored MDM MDM MDM Narrative Medical decision making narrative: 62-year-old male with nausea vomiting diarrhea for a week. Really no significant abdominal pain. No dysuria. His exam is benign. He is hypotensiveat 97/76 but is got moist mucous membranes. Screening labs to be obtained. Zofran for nausea. A liter normal saline and reevaluated. If he has an episodeof diarrhea since has had for a week and has had up to 10 episodes a day we willsend a sample for C. difficile but he has no risk factors never had it before hehas been not been in the hospital nor any antibiotics nor recent surgery. Repeat exam patient is doing well at 5:40 PM. Is receiving IV fluids. P.o. K- Dur. C. difficile is running may take several hours. Patient will be discharged and I will follow up that test result notify them if it is positive. Patient be discharged home on potassium replacement. Follow-up with his primarycare physician. Fluids. Rest. Imodium for the diarrhea. History & Record Review Discussion w/independent historian: Patient and Family Lab Data Attestation: I reviewed the patient's lab results. Lab results narrative: CBC unremarkable. White count 8.9. H&H 15 and 45. Platelets 291. Electrolytes show potassium of 2.8 gap of 4. BUN and creatinine are 13 and 1.38. Glucose 141. Labs: Laboratory Results - last 24 hr 01/23/23 15:40 WBC 8.9 RBC 4.77 Hgb 15.5 Hct 45.0 MCV 94.3 H MCH 32.5 H MCHC 34.4 RDW Std Deviation 43.8 RDW Coeff of Jorge 12.6 Plt Count 291 MPV 9.4 Immature Gran % (Auto) 0.300 Neut % (Auto) 66.8 Lymph % (Auto) 16.7 L Shelby % (Auto) 13.4 H Eos % (Auto) 2.0 Baso % (Auto) 0.8 Absolute Neuts (auto) 5.9 Absolute Lymphs (auto) 1.48 Nucleated RBC % 0 Sodium 136 Potassium 2.8 L Chloride 109 H Carbon Dioxide 23.0 Anion Gap 4 L BUN 13 Creatinine 1.38 H Estim Creat Clear Calc 51.37 Est GFR (MDRD) Af Amer 67 Est GFR (MDRD) Non-Af 56 L BUN/Creatinine Ratio 9.4 L Glucose 141 H Calcium 8.9 Discharge Plan Triage Chief Complaint: Nausea/Vomiting/Diarrhea ED Provider: Cristian Hutchinson Dx/Rx/DC Orders Clinical Impression: Nausea vomiting and diarrhea, Viral syndrome, Acute hypokalemia Instructions: ED Hypokalemia, ED Viral Syndrome (Adult), ED Vomiting and Diarrhea ... Prescriptions: New potassium chloride 20 mEq tablet,ER particles/crystals 20 meq PO BID 10 Days Qty: 20 0RF ondansetron 4 mg tablet,disintegrating 4 mg PO Q8H PRN (Reason: nausea and vomiting) 3 Days Qty: 7 0RF No Action losartan-hydrochlorothiazide 100-25 mg tablet 1 tab PO DAILY glimepiride 4 mg tablet 4 mg PO QAM metformin 1,000 mg tablet 1,000 mg PO DAILY levothyroxine 175 mcg tablet 175 mcg PO DAILY Trulicity 4.5 mg/0.5 mL pen injector 4.5 mg SUBCUT .qsunday Primary Care Provider: Matthew Bustos Referrals: Matthew Bustos MD [Primary Care Provider] - 3-5 Days if not improving Activity Restrictions/Additional Instructions: Plenty of fluids and rest. Increase diet slowly as tolerated. Zofran as needed for nausea. Imodium for diarrhea if it continues. Follow-up with your primary care physician if not improving. K-Dur which is potassium to be taken daily. Should have your potassium level rechecked in 2 weeks. Disposition Disposition: Home, Self Care What to do if you have Problems For any increased pain, shortness of breath, bleeding, nausea or vomiting, chestpain, or any unexpected problems, contact your Primary Care Provider. Call [facility] ([phone]) or report to the closest Emergency Room. Call 911 if necessary. 01/23/231752 <Electronically signed by Cristian Hutchinson MD> Cosigner Signature (if applicable): CC: Dr. Matthew Bustos MD ~ Signed [facility] Work Phone: Evaluation noteNo assessment information available [facility] Work Phone: Evaluation note* Diagnosis Onset Date Resolution Status Diarrhea noneactive [facility] Work Phone: Evaluation note* Diagnosis Onset Date Resolution Status Diarrhea noneactive Diarrhea acute Weight loss acute [facility] Work Phone: Hospital Discharge instructions Additional Instructions Plenty of fluids and rest. Increase diet slowly as tolerated. Zofran as needed for nausea. Imodium for diarrhea if it continues. Follow-up with your primary care physician if not improving. K-Dur which is potassium to be taken daily. Should have your potassium level rechecked in 2 weeks.[facility] Work Phone: Summary Purpose Family History No Family History Records Found Relationship Condition Age at Onset Recorded Date/T maldonado mother Malignant neoplasm of breast Unknown Diabetes mellitus Unknown Hypertension Unknown father Hypertension Unknown Relationship Condition Age at Onset Recorded Date/T maldonado mother Malignant neoplasm of breast Unknown Diabetes mellitus Unknown Hypertension Unknown father Hypertension Unknown Malignant neoplasm of colon Unknown Advance Directives No Advanced Directives Records Found Advance Directive Response Recorded Date/ Time Living Will No January 23, 2023 3:22pm Power of Quality Rep No January 3:22pm Advance Directive Response Recorded Date/ Time Name of Medical Power of Quality Rep KASSY CHAMPION January 31, 2023 10:38am Living Will Yes January 31, 2023 10:38am Power of Quality Rep Yes January 10:38am Advance Directive Response Recorded Date/ Time Name of Medical Power of Quality Rep KASSY CHAMPION January 31, 2023 9:38am Name of Medical Power of Quality Rep DAUGHTER May 19, 2023 12:56pm Living Will Yes May 19 12:56pm Power of Quality Rep Yes May 19 12:56pm Advance Directive Response Recorded Date/ Time Name of Medical Power of Quality Rep DAUGHTER May 19, 2023 1:56pm Living Will Yes May 19 1:56pm Power of Quality Rep Yes May 19 1:56pm Chief Complaint and Reason for Visit Chief Complaint NECK NODULE Chief Complaint Diarrhea N/V/D Reason for Visit Diarrhea Chief Complaint Diarrhea N/V/D abd pain Reason for Visit Diarrhea Chief Complaint Diarrhea N/V/D abd pain On going diarrhea Reason for Visit Diarrhea Diarrhea Weight loss Additional Source Comments (unrecognized sect ion and content) No Status Records FoundNo Status Records Found INFORMATION SOURCE (unrecogn ized section and content) DATE CREATED AUTHOR 05/08/2019 [facility] DATE CREATED AUTHOR AUTHOR'S ORGANIZ ATION 09/12/2023 [facility] Goals (unrecognized section and content) Goals may be documented in a n alternate sectionGoals may be documented in an alternate sectionGoals may be documented in an alternate sectionGoals may be documented in an alternate sectionGoals may be documented in an alternate section Care Teams (unrecognized sec tion and content) Team Status: Active Member Role Status Dates Dr. Matthew Bustos MD Primary Care Provider Activ e Team Status: Inactive Member Role Status Dates Dr. Matthew Bustos MD Primary Care Provider, Atte nding Provider Active Team Status: Inactive Member Role Status Dates Dr. Matthew Bustos MD Primary Care Provider, Refe rring Provider Active Kash Peoples ENTERTAINMENT MANAGER, ENTERTAINMENT MANAGER-C Attending Provider Active Team Status: Inactive Member Role Status Dates Dr. Matthew Bustos MD Primary Care Provider Activ e Dr. Cristian Hutchinson MD Emergency Provider Active Team Status: Inactive Member Role Status Dates Dr. Matthew Bustos MD Primary Care Provider Activ e Dr. Cristian Hutchinson MD Attending Provider, Emergency Pro vider Active Team Status: Inactive Member Role Status Dates Dr. Matthew Bustos MD Primary Care Provider Activ e Dr. Tong Bagley DO Emergency Provider Active Team Status: Inactive Member Role Status Dates Dr. Matthew Bustos MD Primary Care Provider, Refe rring Provider Active Dr. Zuri Greenberg MD Attending Provider Active Team Status: Active Member Role Status Dates Dr. Matthew Bustos MD Primary Care Provider, Refe rring Provider Active Dr. Zuri Greenberg MD Attending Provider, Other Pro vider Active Team Status: Inactive Member Role Status Dates Dr. Matthew Bustos MD Primary Care Provider Activ e Dr. Tong Bagley DO Attending Provider, Emergency Provide r Active Team Status: Active Member Role Status Dates Dr. Deepak Bustos MD Primary Care Provider Acti ve Team Status: Active Member Role Status Dates Dr. Deepak Bustos MD Primary Care Provider, Ref erring Provider Active Dr. Zuri Greenberg MD Attending Provider, Other Pro vider Active Team Status: Inactive Member Role Status Dates Dr. Deepak Bustos MD Primary Care Provider, Ref erring Provider Active Dr. Zuri Greenberg MD Attending Provider Active Team Status: Inactive Member Role Status Dates Dr. Deepak Bustos MD Primary Care Provider, Att ending Provider Active FOR RECORDS PERTAINING TO PATIENTS WHO ARE [...] BE BASED ON THE PRIMARY CLINICAL RECORDS. [employer] provides no warranty or guarantee of the accuracy or completeness of information in this document.
[2024-11-08 11:24] LABS: ALB/GLOB Ratio 1.5 RATIO (0.9-2.4); AST(SGOT) 17 U/L (<=37); Alanine Aminotransfer ALT/SGPT 13 U/L (<=46); Albumin, Serum 4.5 g/dL (3.4-4.8); Alkaline Phosphatase 105 U/L (40-129); Anion Gap 14 (5-15); BUN 19 mg/dL (4-19); BUN/Creat Ratio 17.7 RATIO (10-20); Calcium,Total 9.9 mg/dL (7.6-11.0); Carbon Dioxide 23.6 mmol/L (21.0-32.0); Chloride 102 mmol/L (98-108); Cholesterol 99 mg/dL (<=200); Creatinine, Serum 1.09 mg/dL (0.70-1.20); EST Glomerular Filtration Rate 77 (>60); Globulin 3.1 g/dL (2.2-4.2); Glucose 196 mg/dL (70-99); High Density Lipoprotein 40 mg/dL; Low Density Lipoprotein Calc. 38 mg/dL; Potassium 3.7 mmol/L (3.3-5.1); Protein, Total 7.5 g/dL (5.9-8.4); Sodium Level 139 mmol/L (133-145); Thyroid Stim Hormone (TSH) 0.391 uIU/mL (0.300-4.200); Total Bilirubin 0.98 mg/dL (0.00-1.30); Triglycerides 108 mg/dL; Very Low Density Lipoprotein 22 mg/dL (5-40); cholesterol:hdl ratio screen 2.49
== END | disposition home or self-care (01) ==
LOC: MFPLAB 08:43
PROVIDERS: PCP Family Medicine; Referring Provider Family Medicine; Visit Provider Family Medicine
DX: E11.65 Type 2 diabetes mellitus with hyperglycemia (principal); E03.9 Hypothyroidism, unspecified
CPT/HCPCS: 36415; 80053; 80061; 84443

== ENCOUNTER → 2025-02-05 | Outpatient (CLI) | payer OTHER, SELFPAY ==
[2025-02-05 19:25] LABS: Vitamin B12 264 pg/mL (180-914); Vitamin D,25 Hydroxy 17.7 ng/mL (30-100)
[2025-02-06 09:43] LABS: Free T3 2.2 pg/mL (2.18-3.98)
== END | disposition home or self-care (01) ==
LOC: MFPLAB 15:05
PROVIDERS: PCP Family Medicine; Visit Provider Family Medicine
DX: E03.9 Hypothyroidism, unspecified (principal); R53.83 Other fatigue
CPT/HCPCS: 36415; 82306; 82607; 84403; 84439; 84443; 84481